=== PATIENT | male | born 1935 | race Caucasian/White ===

== ENCOUNTER → 2018-01-13 | Outpatient (CLI) | payer MEDICARE, OTHER ==
[~2018-01-13] MED LIST: ALBU8.5H IH; ASCO-183 PO; ASPI-1471 PO; CALC600T63 PO; CARV12.578 PO; CARV25TA78 PO; CHLO-172 PO; CHRO1TAB3 PO; CHRO200C6 PO; CINN500C12 PO; CLIN300C99 PO; DOXY-179 PO; ENAL-18 PO; ENAL20TA99 PO; FLU45SYR25 IM ONLY; FURO-45 PO; GLIM2TAB43 PO; HYDR-2966 PO; LUTE6CAP11 PO; MULT-1372 PO; MUPI15CR10 TP; NYST15OI14 TP; OMEG-152 PO; OMEP-125 PO; OXYGENHOME INH; POTA20TA94 PO; SAW450CA3 PO; SIMV-54 PO; TERA2CAP54 PO; TERA5CAP59 PO
[2018-01-13 12:09] LABS: PLATELET COUNT, AUTOMATED 156 K/uL (150-450)
[2018-01-13 12:15] LABS: LDL CHOLESTEROL 24 mg/dl
== END ==
LOC: LAB 11:35
PROVIDERS: ATTEND Internal Medicine
DX: E78.5 Hyperlipidemia, unspecified (principal); E11.9 Type 2 diabetes mellitus without complications; I10 Essential (primary) hypertension
CPT/HCPCS: 36415; 82040; 82247; 82310; 82374; 82435; 82465; 82565; 82947; 83036; 83718; 84075; 84132; 84155; 84295; 84443; 84450; 84460; 84478; 84520; 85025

== ENCOUNTER 2018-06-18 11:14 | Emergency (ER) | payer MEDICARE, OTHER ==
[~2018-06-18 11:14] MED LIST changes: +CEPH-13 PO; +CEPH500T7 PO; -CHRO200C6 PO; +CHRO200C7 PO; +HYDR453.8 TP
[2018-06-18 11:19] VITALS: BP 144/69
--- NOTE | 2018-06-18 11:35 | ER Report ---
History and Physical Time Seen By : 11:26 Hx. of Stated Complaint: PT WAS LEAVING OUTPATIENT REHAB FOR WOUND CARE, AND TRIPPED. PT FELL, LANDED ON HIS RIGHT SHOULDER AND HIT HEAD. PT HAS MULTIPLE OTHER BRUISES FROM PREVIOUS FALLS, AND PT STATES HE IS ON BLOOD THINNERS. HPI/ROS CHIEF COMPLAINT: Mechanical fall HISTORY OF PRESENT ILLNESS: This is an 82-year-old male who presents to the emergency department from the wound care clinic for a fall. Patient was finished with his wound care today and missed a step and fell down on his right side, he has a skin tear to his right elbow, right wrist and dorsum of the left hand. The patient also did hit his head has some swelling to the right temporal parietal area. I suggestion a CT the head and neck as the patient is anticoagulated, the patient declined the head and neck CT, he does understand that he is anticoagulated and could potentially lead to a brain bleed, patient still refusing any imaging just wants the wounds repaired. REVIEW OF SYSTEMS: Respiratory: No cough, no dyspnea. Cardiovascular: No chest pain, no palpitations. Gastrointestinal: No vomiting, no abdominal pain. Musculoskeletal: As above. Integument: As above. Allergies: Coded Allergies: No Known Drug Allergies (Unverified , 10/22/17) Home Meds Active Scripts Simvastatin (SIMVASTATIN) 40 Mg Tablet, 1 MG PO QHS, #90 TAB 3 Refills Prov:ZINA MARINO MD 06/03/18 Terazosin Hcl (TERAZOSIN HCL) 5 Mg Capsule, 5 MG PO QHS, #90 CAPSULE 3 Refills Prov:ZINA MARINO MD 05/08/18 Omeprazole (OMEPRAZOLE) 20 Mg Capsule.dr, 1 CAP PO QDAY, #90 CAP 4 Refills Prov:ZINA MARINO MD 05/04/18 Enalapril Maleate (ENALAPRIL MALEATE) 20 Mg Tablet, 20 MG PO BID, #180 TAB 4 Refills Prov:ZINA MARINO MD 03/24/18 Carvedilol (CARVEDILOL) 25 Mg Tablet, 25 MG PO BID, #180 TAB 4 Refills Prov:ZINA MARINO MD 03/24/18 Furosemide (FUROSEMIDE) 20 Mg Tablet, 1 TAB PO QDAY, #90 TAB 4 Refills Prov:ZINA MARINO MD 03/24/18 Hydrochlorothiazide (HYDROCHLOROTHIAZIDE) 25 Mg Tablet, 1 TAB PO QDAY, #90 TAB 4 Refills Prov:ZINA MARINO MD 03/24/18 Potassium Chloride (POTASSIUM CHLORIDE) 20 Meq Tab.er.prt, 1 TAB PO BID, #180 TAB 4 Refills Prov:ZINA MARINO MD 03/24/18 Hydrocortisone 2.5% Oint (HYDROCORTISONE 2.5% OINT) 453.6 Gm Oint...g., 1 FAUSTINA TP BID for 30 Days, #30 GM 2 Refills Prov:APOLINAR RUSHINGMARIANO Allred NPC 03/05/18 Oxygen (OXYGEN) Inha, 2 L INH QDAY, #2 L Prov:ZINA MARINO MD 09/25/16 Reported Medications Mupirocin (MUPIROCIN) 5 Gm Powder, 5 GM MC 06/18/18 Glimepiride (GLIMEPIRIDE) 2 Mg Tablet, 2 MG PO QDAY 06/18/18 Cinnamon Bark (CINNAMON) 500 Mg Capsule, 2 CAP PO QDAY, CAPSULE 07/25/15 Aspirin (ASPIR 81) 81 Mg Tablet.dr, 1 TAB PO QDAY, TAB 07/25/15 Chromium/Herbal Complex No.238 (Green Tea Caplet) 1 Each Tablet, 300 MG PO QDAY 07/25/15 Multivitamin (DAILY VALUE) 1 Each Tablet, 1 TAB PO QDAY 07/25/15 Lutein (LUTEIN) 6 Mg Capsule, 1 CAP PO QDAY, CAPSULE 07/25/15 [place]-3/Dha/Epa/Fish Oil (FISH OIL OMEGA-3 SOFTGEL) 1 Each Capsule.dr, 1 CAP PO QDAY 07/25/15 Saw [place] Fruit (SAW PALMETTO) 450 Mg Capsule, 1 CAP PO QDAY, CAPSULE 07/25/15 Calcium Carbonate (CALCIUM) 600 Mg Tablet, 2 TAB PO QDAY 07/25/15 Past Medical/Surgical History The patient has a past medical and surgical history of hypertension, hypercholesterolemia, COPD however he does not wear oxygen. Diabetes, a little hernia repair and tonsillectomy. Multiple nonhealing wounds. Multiple falls. Reviewed Nurses Notes: Yes Smoking Status: Former Smoker Hx Substance Use Disorder: No Hx Alcohol Use: Yes Constitutional Vital Sign - Last 24 Hours 06/18/18 11:19 Pulse 76 Resp 18 B/P (MAP) 144/69 Pulse Ox 85 O2 Delivery Room Air Physical Exam General Appearance: The patient is alert, has no immediate need for airway protection and no current signs of toxicity. Eyes: Pupils equal and round no injection. Respiratory: Chest is non tender, lungs are clear to auscultation. Cardiac: regular rate and rhythm. Gastrointestinal: Abdomen is soft and non tender, no masses, bowel sounds normal. Musculoskeletal: Neck: Neck is supple and non tender. Extremities have full range of motion and are non tender. Skin: Small hematoma to the right temporal and parietal area. Skin tear measuring approximate 4 cm to the right lateral elbow. Skin tear to the ulnar side of the wrist proximally 1 cm. Small skin tear to the dorsum of the left hand. Bleeding controlled. DIFFERENTIAL DIAGNOSIS: After history and physical exam differential diagnosis was considered for subdural bleed, skull fracture, elbow fracture, contusion, hematoma, skin tear and wrist fracture. Medical Decision Making ED Course/Re-evaluation ED Course The patient was admitted to room. A strep swab obtained. Differential diagnoses were considered. After my exam I did tell the patient with his history of anticoagulation and the recent head trauma my recommendation was a head and neck CT however the patient declined, he states he understands the risks involved with a potential head bleed. The patient just wanted the wounds repaired as simply as possible and just to go home. I did have the patient follow up with wound care for reevaluation. The wounds were cleansed and repaired as noted below. Patient tolerated well. No other questions or concerns at this time. Patient was wheeled out to the [facility] where his car was parked and assisted into his vehicle. 06/18/2018 11:48:13 am patient again declined the head CT, declined any other imaging of the extremities he also declined suturing and had no shot. I did Steri-Strip the large skin tear on the right elbow measuring approximately 4 cm in length. A nonadherent dressing was applied to the wound. I also applied a Steri-Strip to the skin tear on the ulnar side of the wrist. And a bandage was applied to the small skin tear to the dorsum of the left hand. The wounds were cleaned with normal saline. The patient has been following up with wound care and will follow-up with wound care again. He was instructed to monitor for signs of infection such as redness swelling or drainage. The patient's family arrived in the ER, they wanted the patient evaluated for home health however the patient declined and "just wanted to go home". Decision to Disposition Date: Jun 18, 2018 Decision to Disposition Time: 11:48 Depart Departure Latest Vital Signs Vital Signs Date Time Temp Pulse Resp B/P (MAP) Pulse Ox O2 Delivery O2 Flow Rate FiO2 06/18/18 11:19 76 18 144/69 85 Room Air Impression: Primary Impression: Fall from ground level Additional Impression: Skin tear of elbow without complication Condition: Improved Disposition: HOME OR SELF-CARE Referrals: ZINA MARINO MD (PCP) Patient Instructions: Acute Wound Care (ED), Skin Tear (ED) Additional Instructions: Be sure to monitor for signs of infection such as redness, swelling, heat and drainage if he notices any of these symptoms please return to the ER immediately or follow-up with your primary care provider. Follow-up with wound care as needed. Drink plenty of fluids. Get plenty of rest. Continue with her current medications. Change the dressing as needed. Return to the emergency department for any other concerns or worsening symptoms. Problem Qualifiers Additional Impression: Skin tear of elbow without complication Encounter type: initial encounter Laterality: right Qualified Codes: S51.011A - Laceration without foreign body of right elbow, initial encounter MERE LICONAP-BC Jun 18, 2018 11:35
[2018-06-18] MEDS ORDERED: [UNRECOGNIZED DRUG - CODE] MC (11:44)
[2018-06-18] MEDS ORDERED: GLIM2TAB43 PO (11:44)
== END 2018-06-18 12:10 | disposition home or self-care (01) ==
LOC: ER 11:22
DX: S51.011A Laceration without foreign body of right elbow, initial encounter (principal); W18.30XA Fall on same level, unspecified, initial encounter
CPT/HCPCS: 99282

== ENCOUNTER 2018-06-29 11:09 | Emergency (ER) | payer MEDICARE, OTHER ==
[~2018-06-29 11:09] MED LIST changes: +[UNRECOGNIZED DRUG - CODE] MC
[2018-06-29 11:25] VITALS: BP 171/90
--- NOTE | 2018-06-29 11:34 | ER Report ---
History and Physical Time Seen By MD: 11:34 Hx. of Stated Complaint: WOUND INFECTION ON RIGHT FOOT. HPI/ROS CHIEF COMPLAINT: Wound on right foot HISTORY OF PRESENT ILLNESS: 82-year-old male patient presents to the emergency room with complaint of a wound on the right foot. Patient was seen by wound care today. They noticed that the erythema had gotten larger, the foot seemed a little bit more swollen. They were concerned that the wound was progressing and referred him to the emergency room for further evaluation. Patient states that he this occurred approximately one week ago when he fell going out to his car. He states that they did help him up, he had a dressing on his right foot and dressing on his right elbow. He was then sent home. Patient was not started on any antibiotics. He states that he's not had any fevers or chills. He did come back to follow-up on his wound with wound care. They state that he was having a foul odor and worsening. REVIEW OF SYSTEMS: Respiratory: No cough, no dyspnea. Cardiovascular: No chest pain, no palpitations. Gastrointestinal: No vomiting, no abdominal pain. Musculoskeletal: No back pain. Allergies: Coded Allergies: No Known Drug Allergies (Unverified , 10/22/17) Home Meds Active Scripts Sulfamethoxazole/Trimet 800-160 Mg Tab (BACTRIM DS TABLET) 1 Each Tablet, 1 TAB PO Q12H, #20 TAB Prov:PATSY EVANS [facility] 06/29/18 Cephalexin 500 Mg Tab (KEFLEX 500 MG TAB) 500 Mg Tablet, 500 MG PO Q6H, #28 TAB Prov:PATSY EVANS [facility] 06/29/18 Simvastatin (SIMVASTATIN) 40 Mg Tablet, 1 MG PO QHS, #90 TAB 3 Refills Prov:ZINA GUSTAFSON MD 06/03/18 Terazosin Hcl (TERAZOSIN HCL) 5 Mg Capsule, 5 MG PO QHS, #90 CAPSULE 3 Refills Prov:ZINA GUSTAFSON MD 05/08/18 Omeprazole (OMEPRAZOLE) 20 Mg Capsule.dr, 1 CAP PO QDAY, #90 CAP 4 Refills Prov:ZINA GUSTAFSON MD 05/04/18 Enalapril Maleate (ENALAPRIL MALEATE) 20 Mg Tablet, 20 MG PO BID, #180 TAB 4 Refills Prov:ZINA GUSTAFSON MD 03/24/18 Carvedilol (CARVEDILOL) 25 Mg Tablet, 25 MG PO BID, #180 TAB 4 Refills Prov:ZINA GUSTAFSON MD 03/24/18 Furosemide (FUROSEMIDE) 20 Mg Tablet, 1 TAB PO QDAY, #90 TAB 4 Refills Prov:ZINA GUSTAFSON MD 03/24/18 Hydrochlorothiazide (HYDROCHLOROTHIAZIDE) 25 Mg Tablet, 1 TAB PO QDAY, #90 TAB 4 Refills Prov:ZINA GUSTAFSON MD 03/24/18 Potassium Chloride (POTASSIUM CHLORIDE) 20 Meq Tab.er.prt, 1 TAB PO BID, #180 TAB 4 Refills Prov:ZINA GUSTAFSON MD 03/24/18 Hydrocortisone 2.5% Oint (HYDROCORTISONE 2.5% OINT) 453.6 Gm Oint...g., 1 FAUSTINA TP BID for 30 Days, #30 GM 2 Refills Prov:GUSTAVO RUSHING 03/05/18 Oxygen (OXYGEN) Inha, 2 L INH QDAY, #2 L Prov:ZINA GUSTAFSON MD 09/25/16 Reported Medications Mupirocin (MUPIROCIN) 5 Gm Powder, 5 GM MC 06/18/18 Glimepiride (GLIMEPIRIDE) 2 Mg Tablet, 2 MG PO QDAY 06/18/18 Cinnamon Bark (CINNAMON) 500 Mg Capsule, 2 CAP PO QDAY, CAPSULE 07/25/15 Aspirin (ASPIR 81) 81 Mg Tablet.dr, 1 TAB PO QDAY, TAB 07/25/15 Chromium/Herbal Complex No.238 (Green Tea Caplet) 1 Each Tablet, 300 MG PO QDAY 07/25/15 Multivitamin (DAILY VALUE) 1 Each Tablet, 1 TAB PO QDAY 07/25/15 Lutein (LUTEIN) 6 Mg Capsule, 1 CAP PO QDAY, CAPSULE 07/25/15 [place]-3/Dha/Epa/Fish Oil (FISH OIL OMEGA-3 SOFTGEL) 1 Each Capsule.dr, 1 CAP PO QDAY 07/25/15 Saw [place] Fruit (SAW PALMETTO) 450 Mg Capsule, 1 CAP PO QDAY, CAPSULE 07/25/15 Calcium Carbonate (CALCIUM) 600 Mg Tablet, 2 TAB PO QDAY 9/8/15 Past Medical/Surgical History Patient has a past medical history of COPD, hyperlipidemia, diabetes, alcohol use. Patient has a surgical history of inguinal hernia repair, tonsillectomy. Reviewed Nurses Notes: Yes Smoking Status: Former Smoker Hx Substance Use Disorder: No Hx Alcohol Use: Yes Constitutional Vital Sign - Last 24 Hours 06/29/18 11:25 Temp 97.7 Pulse 81 Resp 18 B/P (MAP) 171/90 Pulse Ox 94 O2 Delivery Room Air Intake and Output 06/29/18 06/29/18 06/30/18 14:59 22:59 06:59 Intake Total 500 ml Balance 500 ml Physical Exam General Appearance: The patient is alert, has no immediate need for airway protection and no current signs of toxicity. ENT: Tympanic membranes are pearly-estevez, auditory canals are patent, mucous membranes are moist. Respiratory: Chest is non tender, lungs are clear to auscultation. Cardiac: regular rate and rhythm Gastrointestinal: Abdomen is soft and non tender, no masses, bowel sounds normal. Musculoskeletal: Neck: Neck is supple and non tender. Extremities have full range of motion and are non tender. Skin: No rashes or lesions. Patient has a nickel-sized wound on the right foot. There is no obvious drainage. He is erythematous around the. He did have markings which the redness has surpassed. It is slightly warm to the touch. DIFFERENTIAL DIAGNOSIS: After history and physical exam differential diagnosis was considered for osteomyelitis, cellulitis, abscess. Medical Decision Making Data Points Result Diagram: 06/29/18 1210 06/29/18 1210 Laboratory Hematology Test 06/29/18 12:10 Red Blood Count 3.92 M/uL (4.00-5.60) Mean Corpuscular Volume 93.3 fL (80.0-96.0) Mean Corpuscular Hemoglobin 33.9 pg (26.0-33.0) Mean Corpuscular Hemoglobin Concent 36.4 g/dL (32.0-36.0) Red Cell Distribution Width 13.1 % (11.5-14.5) Mean Platelet Volume 7.4 fL (7.2-11.1) Neutrophils (%) (Auto) 66.7 % (39.4-72.5) Lymphocytes (%) (Auto) 18.4 % (17.6-49.6) Monocytes (%) (Auto) 10.4 % (4.1-12.4) Eosinophils (%) (Auto) 3.3 % (0.4-6.7) Basophils (%) (Auto) 1.2 % (0.3-1.4) Nucleated RBC Relative Count (auto) 0.2 /100WBC Neutrophils # (Auto) 3.5 K/uL (2.0-7.4) Lymphocytes # (Auto) 1.0 K/uL (1.3-3.6) Monocytes # (Auto) 0.5 K/uL (0.3-1.0) Eosinophils # (Auto) 0.2 K/uL (0.0-0.5) Basophils # (Auto) 0.1 K/uL (0.0-0.1) Nucleated RBC Absolute Count (auto) 0.01 K/uL Sodium Level 138 mmol/L (137-145) Potassium Level 3.9 mmol/L (3.5-5.0) Chloride Level 105 mmol/L (98-107) Carbon Dioxide Level 22 mmol/L (22-30) Blood Urea Nitrogen 9 mg/dl (9-21) Creatinine 1.00 mg/dl (0.66-1.25) Glomerular Filtration Rate Calc > 60.0 Random Glucose 92 mg/dl (75-110) Lactate 1.0 mmol/L (0.7-2.1) Calcium Level 9.1 mg/dl (8.4-10.2) Total Bilirubin 0.2 mg/dl (0.2-1.3) Aspartate Amino Transf (AST/SGOT) 27 U/L (0-35) Alanine Aminotransferase (ALT/SGPT) 33 U/L (0-56) Alkaline Phosphatase 40 U/L (0-126) C-Reactive Protein 0.6 mg/dl (<1.0) Total Protein 6.9 g/dl (6.3-8.2) Albumin 4.1 g/dl (3.5-5.0) Chemistry Test 06/29/18 12:10 White Blood Count 5.2 k/uL (4.5-11.0) Red Blood Count 3.92 M/uL (4.00-5.60) Hemoglobin 13.3 g/dL (14.0-18.0) Hematocrit 36.5 % (42.0-52.0) Mean Corpuscular Volume 93.3 fL (80.0-96.0) Mean Corpuscular Hemoglobin 33.9 pg (26.0-33.0) Mean Corpuscular Hemoglobin Concent 36.4 g/dL (32.0-36.0) Red Cell Distribution Width 13.1 % (11.5-14.5) Platelet Count 185 K/uL (150-450) Mean Platelet Volume 7.4 fL (7.2-11.1) Neutrophils (%) (Auto) 66.7 % (39.4-72.5) Lymphocytes (%) (Auto) 18.4 % (17.6-49.6) Monocytes (%) (Auto) 10.4 % (4.1-12.4) Eosinophils (%) (Auto) 3.3 % (0.4-6.7) Basophils (%) (Auto) 1.2 % (0.3-1.4) Nucleated RBC Relative Count (auto) 0.2 /100WBC Neutrophils # (Auto) 3.5 K/uL (2.0-7.4) Lymphocytes # (Auto) 1.0 K/uL (1.3-3.6) Monocytes # (Auto) 0.5 K/uL (0.3-1.0) Eosinophils # (Auto) 0.2 K/uL (0.0-0.5) Basophils # (Auto) 0.1 K/uL (0.0-0.1) Nucleated RBC Absolute Count (auto) 0.01 K/uL Glomerular Filtration Rate Calc > 60.0 Lactate 1.0 mmol/L (0.7-2.1) Calcium Level 9.1 mg/dl (8.4-10.2) Total Bilirubin 0.2 mg/dl (0.2-1.3) Aspartate Amino Transf (AST/SGOT) 27 U/L (0-35) Alanine Aminotransferase (ALT/SGPT) 33 U/L (0-56) Alkaline Phosphatase 40 U/L (0-126) C-Reactive Protein 0.6 mg/dl (<1.0) Total Protein 6.9 g/dl (6.3-8.2) Albumin 4.1 g/dl (3.5-5.0) Microbiology Microbiology Date/Time Source Procedure Growth Status 06/29/18 11:48 Foot Right Gram Stain - Final Resulted 06/29/18 11:48 Foot Right Wound Culture Pending Resulted 06/29/18 11:48 Foot Right Anaerobic Culture Pending Resulted EKG/Imaging Imaging FOOT RIGHT W CONTRAST COMPARISON: None. HISTORY: wound on top of foot, diabetic. TECHNIQUE: Postcontrast axial CT of the right ankle, midfoot and forefoot with multiplanar reformats. One of the following dose optimization techniques was utilized in the performance of this exam: automated exposure control; adjustment of the mA and/ or kV according to patient size; or use of iterative reconstruction technique. Specific details can be referenced in the facility's radiology CT exam operational policy. CONTRAST: 75 mL Isovue-370 intravenously. FINDINGS: BONES : No acute fracture or CT evidence of osteomyelitis. Moderate first MTP joint osteoarthritis with joint space narrowing and marginal spurring present. Mild mid foot osteoarthritis, with degenerative cysts within the medial cuneiform and navicular and with dorsal spurring at the first and second TMT joints. There are second through fifth toe hammertoe deformities, otherwise alignment is within normal limits for nonweightbearing technique. Small plantar and posterior calcaneal enthesophytes are present. There is mild tibiotalar joint space narrowing and spurring and moderate spurring at the tip of the medial malleolus. FLUID: No appreciable effusion or drainable fluid collection. SOFT TISSUES: Moderate diffuse vascular calcifications consistent with peripheral vascular disease. Diffuse muscle atrophy is probably due to long- standing diabetic neuropathy. There is diffuse skin thickening and mild circumferential soft tissue edema at the ankle, and moderate soft tissue edema throughout the dorsal midfoot and forefoot, but no soft tissue abscess is seen. OTHER: Negative. IMPRESSION: 1. Soft tissue edema in the right ankle and dorsal midfoot/forefoot, probably representing cellulitis. No evidence of soft tissue abscess or osteomyelitis. 2. 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 3. Diffuse foot muscle atrophy which is probably due to long-standing diabetic neuropathy. 4. Moderate vascular calcifications consistent with peripheral vascular disease. Report Dictated By: Shlomo Hinton at 06/29/2018 2:23 PM Report E-Signed By: Shlomo Hinton at 06/29/2018 2:30 PM ED Course/Re-evaluation ED Course Patient was admitted to an exam room, history and physical were obtained. Differential diagnoses were considered. On examination lungs are clear, heart is regular, abdomen is soft and nontender. Patient does have a wound to the top of the right foot. A CBC, CMP, lactate were done. Labs were unremarkable. A CT scan of the foot was done which showed soft tissue swelling consistent with cellulitis but no abscess and no ostium myelitis. I discussed the findings with the patient. We will go ahead and discharge patient home at this time. The dressing was replaced by myself under the direction of Yamel Carl, physical therapist. Patient states he's feeling fine. We will go ahead and put him on Keflex as well as Bactrim to treat the cellulitis. He is to return emergency room if condition worsens. I would like him follow-up with his primary care provider if condition worsens. Patient verbalized understanding and agreement with plan. Decision to Disposition Date: Jun 29, 2018 Decision to Disposition Time: 14:48 Depart Departure Latest Vital Signs Vital Signs Date Time Temp Pulse Resp B/P (MAP) Pulse Ox O2 Delivery O2 Flow Rate FiO2 06/29/18 11:25 97.7 81 18 171/90 94 Room Air Impression: Primary Impression: Cellulitis Condition: Improved Disposition: HOME OR SELF-CARE Referrals: ZINA GUSTAFSON MD (PCP) New Scripts Sulfamethoxazole/Trimet 800-160 Mg Tab (BACTRIM DS TABLET) 1 Each Tablet 1 TAB PO Q12H, #20 TAB Prov: PATSY EVANS 06/29/18 Cephalexin 500 Mg Tab (KEFLEX 500 MG TAB) 500 Mg Tablet 500 MG PO Q6H, #28 TAB Prov: PATSY EVANS 06/29/18 Patient Instructions: Cellulitis (ED) Additional Instructions: Limit activity by pain. Get plenty of rest. Take the antibiotics as directed. Follow up with Yamel on as directed. Return to the ER if condition worsens. Follow up with Dr. Gustafson in the next week. Problem Qualifiers Primary Impression: Cellulitis Site of cellulitis: extremity Site of cellulitis of extremity: lower extremity Laterality: right Qualified Codes: L03.115 - Cellulitis of right lower limb PATSY EVANS Jun 29, 2018 11:34
[2018-06-29] MEDS ORDERED: NS(*) 0.9% 500 ML BAG 500 ML IV ONE (11:55)
[2018-06-29] MEDS ORDERED: IOPAMIDOL 76% 75 ML INFUS BTL 75 ML ONE (12:05)
[2018-06-29 12:23] LABS: PLATELET COUNT, AUTOMATED 185 K/uL (150-450)
--- NOTE | 2018-06-29 14:36 | RADIOLOGY IMAGING REPORT ---
FACILITY: [facility] - [place] PATIENT NAME: Valerio Hays : 1935 MR: [id number] V: [id number] EXAM DATE: ORDERING PHYSICIAN: PTASY EVANS TECHNOLOGIST: Location: [facility] [place] Patient: Valerio Hays : 1935 Visit/Account:[id number] Date of Sevice: 06/29/2018 FOOT RIGHT W CONTRAST COMPARISON: None. HISTORY: wound on top of foot, diabetic. TECHNIQUE: Postcontrast axial CT of the right ankle, midfoot and forefoot with multiplanar reformats. One of the following dose optimization techniques was utilized in the performance of this exam: auto mated exposure control; adjustment of the mA and/or kV according to patient size; or use of iterative reconstruction technique. Specific details can be referenced in the facility's radiology CT exam op erational policy. CONTRAST: 75 mL Isovue-370 intravenously. FINDINGS: BONES : No acute fracture or CT evidence of osteomyelitis. Moderate first MTP joint osteoarthritis w ith joint space narrowing and marginal spurring present. Mild mid foot osteoarthritis, with degenerat jena cysts within the medial cuneiform and navicular and with dorsal spurring at the first and second TMT joints. There are second through fifth toe hammertoe deformities, otherwise alignment is within n ormal limits for nonweightbearing technique. Small plantar and posterior calcaneal enthesophytes are present. There is mild tibiotalar joint space narrowing and spurring and moderate spurring at the tip of the medial malleolus. FLUID: No appreciable effusion or drainable fluid collection. SOFT TISSUES: Moderate diffuse vascular calcifications consistent with peripheral vascular disease. Diffuse muscle atrophy is probably due to long-standing diabetic neuropathy. There is diffuse skin th ickening and mild circumferential soft tissue edema at the ankle, and moderate soft tissue edema thro ughout the dorsal midfoot and forefoot, but no soft tissue abscess is seen. OTHER: Negative. IMPRESSION: 1. Soft tissue edema in the right ankle and dorsal midfoot/forefoot, probably representing celluliti s. No evidence of soft tissue abscess or osteomyelitis. 2. 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 3. Diffuse foot muscle atrophy which is probably due to long-standing diabetic neuropathy. 4. Moderate vascular calcifications consistent with peripheral vascular disease. Report Dictated By: Shlomo Hinton at 06/29/2018 2:23 PM Report E-Signed By: Shlomo Hinton at 06/29/2018 2:30 PM WSN:[email or web address]
[2018-06-29] MEDS ORDERED: SULF-198 PO (14:46)
[2018-06-29] MEDS ORDERED: CEPH500T7 PO (14:46)
== END 2018-06-29 15:00 | disposition home or self-care (01) ==
LOC: ER 11:26
DX: L03.115 Cellulitis of right lower limb (principal)
CPT/HCPCS: 73701; 83605; 85025; 86140; 87070; 87073; 87205; 96360; 99284; J7040; Q9967; 82040; 82247; 82310; 82374; 82435; 82565; 82947; 84075; 84132; 84155; 84295; 84450; 84460; 84520

== ENCOUNTER 2018-07-09 10:30 | Outpatient (RCR) | payer MEDICARE, OTHER ==
--- NOTE | 2018-04-17 20:53 | PT INITIAL EVALUATION ---
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 Most recently, pt had been applying bactroban and or a topical steriod, both without significant improvement. Pt also has had 2 rounds of Keflex which has not provided relief of symptoms either. Pt arrives with wound open to air covered simply with boxers and jeans. REHAB PROBLEM LIST: Increased Pain; open wounds to B) medial buttocks PREVIOUS MEDICAL HISTORY: DMII OBJECTIVE: L) superior medial buttocks: 2cm L x 1cm W x 0.3cm D L) inferior medial buttocks: 1.5cm L x 1cm W x 0.3cm D R) medial buttocks: 3cm L x 2 cm W x 0.3cm D Large area of red, excoriated skin with abrasions surrounding each open area. ASSESSMENT: Pt notes that he sleeps in a recliner and typically keeps his feet in a dependent position, as this is most comfortable for him. Pt educated on the importance of changing position more frequently and cushions to off load this area and allow for more breathability. Pt also educated on importance of moisture control and potentially using a disposable brief to manage moisture and allow for more efficient healing. Pt would benefit from non-excisional debridement of non-viable tissue and slough at wound beds and debridement to address edges of wounds with epibole, followed by advanced wound care dressing selection to optimize a clean, moist wound healing environment without contamination. Short Term Goals 1. Pt to maintain clean, dry and intact dressings between PT visits 2. Wounds to demos improved granulation base with gradual epithelialization from edges inward 3. Wounds to remain free of signs and symptoms of infection 4. Periwound skin to respond to moisturizer and skin protectant. 5. Pt to verbalize understanding of pressure and moisture control techniques and actively integrate them into daily living. Patient's Goals Wounds to heal without further complications and prevent further occurrence in the future. PLAN: Patient to be seen for non-excisional, selective, conservative debridement to remove non-viable tissue and slough and encourage further wound healing by establishing a clean, moist wound bed with protection from contamination or excessive moisture. Pt to be educated on further preventative techniques to allow for off loading with frequent position changes and moisture management with regard to sweating or any potential incontinence. 2x/Week for up to 3 months Thank you for this referral. If you have any questions, comments, or concerns about this report or plan, please contact me at . H. Yazmin Carl, PT, MPT MTDD
[~2018-07-09 10:30] MED LIST changes: +SULF-198 PO
== END 2018-07-15 ==
LOC: PT 10:30
PROVIDERS: ATTEND Nurse Practitioner
DX: L89.323 Pressure ulcer of left buttock, stage 3 (principal); L89.313 Pressure ulcer of right buttock, stage 3; E11.9 Type 2 diabetes mellitus without complications
CPT/HCPCS: 97161

== ENCOUNTER → 2018-09-07 | Outpatient (CLI) | payer MEDICARE, OTHER ==
[~2018-09-07] MED LIST changes: +AMOX-559 PO
[2018-09-07 09:27] LABS: PLATELET COUNT, AUTOMATED 254 K/uL (150-450)
[2018-09-07 09:36] LABS: LDL CHOLESTEROL 43 mg/dl
--- NOTE | 2018-09-07 09:51 | RADIOLOGY IMAGING REPORT ---
FACILITY: [facility] - [place] PATIENT NAME: Valerio Hays : 1935 MR: [id number] V: [id number] EXAM DATE: ORDERING PHYSICIAN: ZINA MARINO TECHNOLOGIST: [place] [facility] [place] Valerio Hays : 1935 Visit/Account:[id number] Date of Sevice: 09/07/2018 TOE LEFT FOOT SECOND DIGIT HISTORY: cellulitis Additional history: None COMPARISON: None. FINDINGS: Osseous structures appear intact. No radiographic evidence of osteomyelitis. Minimal arthritic bliss ges noted at the first MTP joint. There is soft tissue swelling in the second digit compatible with reported history of cellulitis. No foreign bodies identified. No evidence of gas in the soft tissue s. IMPRESSION: Second toe soft tissue swelling. No radiographic evidence of osteomyelitis. I would caution however the radiographic findings occur relatively late. If there is strong clinical suspicion for osteomye litis MRI is the most sensitive modality for detection Report Dictated By: Chinmay Mosley MD at 09/07/2018 9:42 AM Report E-Signed By: Chinmay Mosley MD at 09/07/2018 9:47 AM WSN:[email or web address]
== END ==
LOC: LAB 08:49
PROVIDERS: ATTEND Internal Medicine
DX: L03.032 Cellulitis of left toe (principal); E11.9 Type 2 diabetes mellitus without complications; E78.5 Hyperlipidemia, unspecified; I10 Essential (primary) hypertension
CPT/HCPCS: 36415; 73660; 83036; 84443; 84550; 85025; 85651; 86140; 87070; 87073; G0103; 82040; 82247; 82310; 82374; 82435; 82465; 82565; 82947; 83718; 84075; 84132; 84153; 84155; 84295; 84450; 84460; 84478; 84520

== ENCOUNTER → 2018-09-17 | Outpatient (CLI) | payer MEDICARE, OTHER ==
[~2018-09-17] MED LIST changes: +GADOBENATE 529MG/1ML 15ML VIAL IVP ONE; +LEVO750T44 PO
--- NOTE | 2018-09-17 17:13 | RADIOLOGY IMAGING REPORT ---
FACILITY: [facility] - [place] PATIENT NAME: Valerio Hays : 1935 MR: [id number] V: [id number] EXAM DATE: ORDERING PHYSICIAN: ZINA MARINO TECHNOLOGIST: Location: [facility] Patient: Valerio Hays : 1935 Visit/Account:[id number] Date of Sevice: 09/17/2018 MRI LEFT FOOT W W/O CONTRAST COMPARISON: Left foot radiographs September 07, 2018. HISTORY: diabetic ulcer r/o osteomylitis left 2nd toe. TECHNIQUE: Pre and postcontrast multiplanar MRI of the forefoot and visualized midfoot utilizing T1 w eighted and fluid sensitive sequences. CONTRAST: 15 mL gadobenate was given intravenously FINDINGS: First through fifth toe hammertoe deformities. Fifth toe hammertoe deformity is suboptimally assessed because the sagittal images only traverse the first through fourth MTP joints. Mild medial and later al marginal spurring at the first MTP joint consistent with mild osteoarthritis. There is moderate consuelo ne marrow edema throughout the second toe proximal phalanx, with associated dorsal cortical loss at t he head/neck junction consistent with osteomyelitis. Normal marrow signal in the middle and distal ph alanx of the second toe. Elsewhere no additional sites of osteomyelitis or bone marrow edema are seen . There is normal alignment of the hallux/sesamoid complex, without sesamoid avascular necrosis, fractu re or sesamoiditis. The plantar plates, flexor and extensor tendons are intact. There is no intermetatarsal bursitis or evidence of Crump's neuroma. There is diffuse enhancing soft tissue edema overlying the dorsal forefoot and in the second toe, con sistent with cellulitis, without evidence of a soft tissue abscess. IMPRESSION: 1. Findings consistent with osteomyelitis of the dorsal head/neck junction of the second toe proxima l phalanx, left foot. 2. Enhancing soft tissue edema in the dorsal forefoot and throughout the second toe, consistent with cellulitis. No evidence of soft tissue abscess. Report Dictated By: Shlomo Hinton at 09/17/2018 4:59 PM Report E-Signed By: Shlomo Hinton at 09/17/2018 5:09 PM WSN:[email or web address]
--- NOTE | 2018-09-17 17:21 | RADIOLOGY IMAGING REPORT ---
FACILITY: [facility] - [place] PATIENT NAME: Valerio Hays : 1935 MR: [id number] V: [id number] EXAM DATE: ORDERING PHYSICIAN: ZINA MARINO TECHNOLOGIST: Location: [facility] Patient: Valerio Hays : 1935 Visit/Account:[id number] Date of Sevice: 09/17/2018 MRI RIGHT FOOT W W/O CONTRAST COMPARISON: Right foot CT 06/29/2018. HISTORY: diabetic ulcer r/o osteomyelitis. Right foot ulcer on top of the foot marked with capsule. TECHNIQUE: Multiplanar MRI of the right midfoot and metatarsals utilizing T1 weighted and fluid sensi tive sequences, with and without IV gadolinium. CONTRAST: 15 Citizen [place] MultiHance intravenously. FINDINGS: BONES : Mild medial and lateral marginal spurring, first MTP joint consistent with mild osteoarthrit is. Mild degenerative changes at the navicular cuboid articulation with mild subchondral edema in the proximal cuboid and prominent degenerative subchondral cyst with surrounding edema in the navicular. Otherwise normal marrow signal and alignment with no evidence of osteomyelitis. FLUID: No appreciable effusion or drainable fluid collection. There is no evidence of soft tissue ab scess. SOFT TISSUES: Mildly enhancing confluent soft tissue edema, dorsal forefoot. Diffuse muscle atrophy. OTHER: Negative. IMPRESSION: 1. Dorsal right forefoot soft tissue edema probably representing cellulitis. No evidence of osteomye litis or soft tissue abscess. 2. Mild degenerative changes of the first MTP joint and navicular cuboid articulation. 3. Diffuse muscle atrophy. Report Dictated By: Shlomo Hinton at 09/17/2018 5:09 PM Report E-Signed By: Shlomo Hinton at 09/17/2018 5:17 PM WSN:[email or web address]
== END ==
LOC: MRI 13:49
PROVIDERS: ATTEND Internal Medicine
DX: L03.90 Cellulitis, unspecified (principal); E11.621 Type 2 diabetes mellitus with foot ulcer
CPT/HCPCS: 73720; A9577

== ENCOUNTER 2018-09-20 09:44 | Emergency (ER) | payer MEDICARE, OTHER ==
[~2018-09-20 09:44] MED LIST changes: -SULF1TAB24 PO
--- NOTE | 2018-09-20 09:45 | ER Report ---
History and Physical Time Seen By : 09:45 HPI/ROS CHIEF COMPLAINT: Weakness, confusion HISTORY OF PRESENT ILLNESS: Patient is an 82-year-old male here with complaints of mild confusion, weakness over the past 2 days. Patient reportedly has been drinking beer to go to sleep and over imbibing while at the same time, drinking enough fluids. He is reported to have difficulty starting his car this morning prompting concern of evaluation in the emergency department. He was noted be tachycardic at time of evaluation. He is also on antibiotic treatment for left distal extremity infection. Patient is afebrile, tachycardic at time of evaluation. Patient denies chest pain, shortness breath, fevers chills, abdominal pain, syncopal episodes. REVIEW OF SYSTEMS: Constitutional: No fever, no chills. Eyes: No discharge. ENT: No sore throat. Cardiovascular: No chest pain, no palpitations. Respiratory: No cough, no shortness of breath. Gastrointestinal: No abdominal pain, no vomiting. Genitourinary: No hematuria. Musculoskeletal: No back pain. Skin: No rashes. Neurological: + confusion, weakness Allergies: Coded Allergies: No Known Drug Allergies (Unverified , 10/22/17) Home Meds Active Scripts Levofloxacin 750 Mg Tab (LEVAQUIN 750 MG TAB) 750 Mg Tablet, 1 TAB PO DAILY, #7 TAB 0 Refills Prov:ZINA MARINO MD 09/18/18 Simvastatin (SIMVASTATIN) 40 Mg Tablet, 1 MG PO QHS, #90 TAB 3 Refills Prov:ZINA MARINO MD 06/03/18 Terazosin Hcl (TERAZOSIN HCL) 5 Mg Capsule, 5 MG PO QHS, #90 CAPSULE 3 Refills Prov:ZINA MARINO MD 05/08/18 Omeprazole (OMEPRAZOLE) 20 Mg Capsule.dr, 1 CAP PO QDAY, #90 CAP 4 Refills Prov:ZINA MARINO MD 05/04/18 Enalapril Maleate (ENALAPRIL MALEATE) 20 Mg Tablet, 20 MG PO BID, #180 TAB 4 Refills Prov:ZINA MARINO MD 03/24/18 Carvedilol (CARVEDILOL) 25 Mg Tablet, 25 MG PO BID, #180 TAB 4 Refills Prov:ZINA MARINO MD 03/24/18 Furosemide (FUROSEMIDE) 20 Mg Tablet, 1 TAB PO QDAY, #90 TAB 4 Refills Prov:ZINA MARINO MD 03/24/18 Hydrochlorothiazide (HYDROCHLOROTHIAZIDE) 25 Mg Tablet, 1 TAB PO QDAY, #90 TAB 4 Refills Prov:ZINA MARINO MD 03/24/18 Potassium Chloride (POTASSIUM CHLORIDE) 20 Meq Tab.er.prt, 1 TAB PO BID, #180 TAB 4 Refills Prov:ZINA MARINO MD 03/24/18 Oxygen (OXYGEN) Inha, 2 L INH QDAY, #2 L Prov:ZINA MARINO MD 09/25/16 Reported Medications Amoxicillin/Pot Clav 875-125 Mg Tab (AUGMENTIN 875-125 TABLET) 1 Each Tablet, 1 TAB PO Q12H, TAB 09/20/18 Sulfamethoxazole/Trimethoprim (SULFAMETHOXAZOLE-TMP DS TABLET) 1 Each Tablet, 1 TAB PO Q12H 09/20/18 Mupirocin (MUPIROCIN) 5 Gm Powder, 5 GM MC 06/18/18 Glimepiride (GLIMEPIRIDE) 2 Mg Tablet, 2 MG PO QDAY 06/18/18 Aspirin (ASPIR 81) 81 Mg Tablet.dr, 1 TAB PO QDAY, TAB 07/25/15 Multivitamin (DAILY VALUE) 1 Each Tablet, 1 TAB PO QDAY 07/25/15 Lutein (LUTEIN) 6 Mg Capsule, 1 CAP PO QDAY, CAPSULE 07/25/15 Saw [place] Fruit (SAW PALMETTO) 450 Mg Capsule, 1 CAP PO QDAY, CAPSULE 07/25/15 Calcium Carbonate (CALCIUM) 600 Mg Tablet, 2 TAB PO QDAY 07/25/15 Discontinued Scripts Sulfamethoxazole/Trimet 800-160 Mg Tab (BACTRIM DS TABLET) 1 Each Tablet, 1 TAB PO Q12H, #28 TAB Prov:ZINA MARINO MD 09/07/18 Amoxicillin/Pot Clav 875-125 Mg Tab (AUGMENTIN 875-125 TABLET) 1 Each Tablet, 1 TAB PO Q12H, #28 TAB Prov:ZINA MARINO MD 09/07/18 Sulfamethoxazole/Trimet 800-160 Mg Tab (BACTRIM DS TABLET) 1 Each Tablet, 1 TAB PO Q12H, #20 TAB Prov:PATSY EVANS PRIMARY CARE COORDINATOR 06/29/18 Smoking Status: Former Smoker Hx Substance Use Disorder: No Hx Alcohol Use: Yes Constitutional Vital Sign - Last 24 Hours 09/20/18 09/20/18 09/20/18 09/20/18 09:46 09:49 09:59 10:00 Temp 98.7 Pulse 120 116 Resp 18 14 B/P (MAP) 110/63 (79) 110/63 115/61 (79) Pulse Ox 94 96 O2 Delivery Room Air 09/20/18 09/20/18 09/20/18 09/20/18 10:14 10:44 10:45 10:50 Pulse 109 111 111 Resp 29 18 B/P (MAP) 133/74 (93) Pulse Ox 94 95 09/20/18 09/20/18 09/20/18 09/20/18 11:00 11:05 11:20 11:30 Pulse 113 110 Resp 16 33 B/P (MAP) 109/66 (80) 121/63 (82) Pulse Ox 94 09/20/18 09/20/18 09/20/18 09/20/18 11:35 11:50 12:00 12:05 Pulse 90 105 94 Resp 20 18 17 B/P (MAP) 113/64 (80) Pulse Ox 94 92 94 09/20/18 09/20/18 09/20/18 09/20/18 12:20 12:30 12:35 12:40 Pulse 101 92 96 Resp 20 15 15 B/P (MAP) 121/69 (86) Pulse Ox 95 92 91 09/20/18 09/20/18 09/20/18 09/20/18 12:55 13:00 13:10 13:20 Pulse 106 99 Resp 17 17 B/P (MAP) 124/52 (76) 121/64 (83) Pulse Ox 96 91 Physical Exam General Appearance: The patient is alert, has no immediate need for airway protection and no signs of toxicity. NAD Eyes: Pupils equal and round no pallor or injection. ENT, Mouth: Mucous membranes are moist. Respiratory: There are no retractions, lungs are clear to auscultation. Cardiovascular: + tachycardic Gastrointestinal: Abdomen is soft and non tender, no masses, bowel sounds normal. Neurological: No focal neuro deficits Skin: Warm and dry, no rashes. Musculoskeletal: Neck is supple non tender. + left distal extremity infection DIFFERENTIAL DIAGNOSIS: After history and physical exam differential diagnosis was considered for dehydration, electrolyte abnormality, intoxication, stroke, infection Medical Decision Making Data Points Result Diagram: 09/20/1848 09/20/18 0948 Laboratory Hematology Test 09/20/18 09:48 09/20/18 09:54 09/20/18 10:06 09/20/18 11:17 Red Blood Count 4.55 M/uL (4.00-5.60) Mean Corpuscular Volume 93.0 fL (80.0-96.0) Mean Corpuscular Hemoglobin 32.4 pg (26.0-33.0) Mean Corpuscular Hemoglobin Concent 34.8 g/dL (32.0-36.0) Red Cell Distribution Width 13.1 % (11.5-14.5) Mean Platelet Volume 7.6 fL (7.2-11.1) Neutrophils (%) (Auto) 78.0 % (39.4-72.5) Lymphocytes (%) (Auto) 12.2 % (17.6-49.6) Monocytes (%) (Auto) 8.9 % (4.1-12.4) Eosinophils (%) (Auto) 0.3 % (0.4-6.7) Basophils (%) (Auto) 0.6 % (0.3-1.4) Nucleated RBC Relative Count (auto) 0.0 /100WBC Neutrophils # (Auto) 7.6 K/uL (2.0-7.4) Lymphocytes # (Auto) 1.2 K/uL (1.3-3.6) Monocytes # (Auto) 0.9 K/uL (0.3-1.0) Eosinophils # (Auto) 0.0 K/uL (0.0-0.5) Basophils # (Auto) 0.1 K/uL (0.0-0.1) Nucleated RBC Absolute Count (auto) 0.00 K/uL Prothrombin Time 15.0 seconds (12.0-14.4) Prothromb Time International Ratio 1.17 Activated Partial Thromboplast Time 31 seconds (23-35) Sodium Level 134 mmol/L (137-145) Potassium Level 4.2 mmol/L (3.5-5.0) Chloride Level 100 mmol/L (98-107) Carbon Dioxide Level 24 mmol/L (22-30) Blood Urea Nitrogen 31 mg/dl (9-21) Creatinine 1.30 mg/dl (0.66-1.25) Glomerular Filtration Rate Calc 52.7 Random Glucose 116 mg/dl (75-110) Calcium Level 8.8 mg/dl (8.4-10.2) Total Bilirubin 0.7 mg/dl (0.2-1.3) Aspartate Amino Transf (AST/SGOT) 32 U/L (0-35) Alanine Aminotransferase (ALT/SGPT) 29 U/L (0-56) Alkaline Phosphatase 51 U/L (0-126) Ammonia 12 UMOL/L (9-33) Troponin I < 0.012 ng/ml Total Protein 7.1 g/dl (6.3-8.2) Albumin 3.6 g/dl (3.5-5.0) Serum Alcohol < 10 mg/dl Whole Blood Glucose 136 mg/DL (75-110) Blood Gas Puncture Site Left radial Blood Gas Patient Temperature 98.7 DEGREES Arterial Blood pH 7.45 (7.35-7.45) Arterial Blood Partial Pressure CO2 28 mmHg (32-37) Arterial Blood Partial Pressure O2 62 mmHg (60-80) Arterial Blood HCO3 20 mmol/L (20-26) Arterial Blood Oxygen Saturation 93 % (92-100) Arterial Blood Base Excess -4.0 mmol/L Philippe Test Acceptable Carboxyhemoglobin 2.1 % (< 5.0) Oxygen Liters/Minute Room air Urine Color Yellow Urine Clarity Clear Urine pH 5.0 pH (4.8-9.5) Urine Specific [place] 1.012 Urine Protein Negative mg/dL (NEGATIVE) Urine Glucose (UA) Negative mg/dL (NEGATIVE) Urine Ketones Negative mg/dL (NEGATIVE) Urine Blood Negative (NEGATIVE) Urine Nitrite Negative (NEGATIVE) Urine Bilirubin Negative (NEGATIVE) Urine Urobilinogen Negative mg/dL (0.2-1.9) Urine Leukocyte Esterase Negative (NEGATIVE) Urine RBC None /HPF (0-2/HPF) Urine WBC None /HPF (0-5/HPF) Urine Squamous Epithelial Cells Few /LPF (</=FEW) Urine Bacteria Negative /HPF (NONE-FEW) Urine Hyaline Casts Many /LPF (NONE-FEW) Urine Mucus None /HPF (NONE-FEW) Urine Opiates Screen Positive Urine Barbiturates Screen Negative Ur Tricyclic Antidepressants Screen Negative Urine Phencyclidine Screen Negative Urine Amphetamines Screen Negative Urine Benzodiazepines Screen Negative Urine Cocaine Screen Negative Urine Cannabinoids Screen Negative Chemistry Test 09/20/18 09:48 09/20/18 09:54 09/20/18 10:06 09/20/18 11:17 White Blood Count 9.8 k/uL (4.5-11.0) Red Blood Count 4.55 M/uL (4.00-5.60) Hemoglobin 14.7 g/dL (14.0-18.0) Hematocrit 42.3 % (42.0-52.0) Mean Corpuscular Volume 93.0 fL (80.0-96.0) Mean Corpuscular Hemoglobin 32.4 pg (26.0-33.0) Mean Corpuscular Hemoglobin Concent 34.8 g/dL (32.0-36.0) Red Cell Distribution Width 13.1 % (11.5-14.5) Platelet Count 233 K/uL (150-450) Mean Platelet Volume 7.6 fL (7.2-11.1) Neutrophils (%) (Auto) 78.0 % (39.4-72.5) Lymphocytes (%) (Auto) 12.2 % (17.6-49.6) Monocytes (%) (Auto) 8.9 % (4.1-12.4) Eosinophils (%) (Auto) 0.3 % (0.4-6.7) Basophils (%) (Auto) 0.6 % (0.3-1.4) Nucleated RBC Relative Count (auto) 0.0 /100WBC Neutrophils # (Auto) 7.6 K/uL (2.0-7.4) Lymphocytes # (Auto) 1.2 K/uL (1.3-3.6) Monocytes # (Auto) 0.9 K/uL (0.3-1.0) Eosinophils # (Auto) 0.0 K/uL (0.0-0.5) Basophils # (Auto) 0.1 K/uL (0.0-0.1) Nucleated RBC Absolute Count (auto) 0.00 K/uL Prothrombin Time 15.0 seconds (12.0-14.4) Prothromb Time International Ratio 1.17 Activated Partial Thromboplast Time 31 seconds (23-35) Glomerular Filtration Rate Calc 52.7 Calcium Level 8.8 mg/dl (8.4-10.2) Total Bilirubin 0.7 mg/dl (0.2-1.3) Aspartate Amino Transf (AST/SGOT) 32 U/L (0-35) Alanine Aminotransferase (ALT/SGPT) 29 U/L (0-56) Alkaline Phosphatase 51 U/L (0-126) Ammonia 12 UMOL/L (9-33) Troponin I < 0.012 ng/ml Total Protein 7.1 g/dl (6.3-8.2) Albumin 3.6 g/dl (3.5-5.0) Serum Alcohol < 10 mg/dl Whole Blood Glucose 136 mg/DL (75-110) Blood Gas Puncture Site Left radial Blood Gas Patient Temperature 98.7 DEGREES Arterial Blood pH 7.45 (7.35-7.45) Arterial Blood Partial Pressure CO2 28 mmHg (32-37) Arterial Blood Partial Pressure O2 62 mmHg (60-80) Arterial Blood HCO3 20 mmol/L (20-26) Arterial Blood Oxygen Saturation 93 % (92-100) Arterial Blood Base Excess -4.0 mmol/L Philippe Test Acceptable Carboxyhemoglobin 2.1 % (< 5.0) Oxygen Liters/Minute Room air Urine Color Yellow Urine Clarity Clear Urine pH 5.0 pH (4.8-9.5) Urine Specific [place] 1.012 Urine Protein Negative mg/dL (NEGATIVE) Urine Glucose (UA) Negative mg/dL (NEGATIVE) Urine Ketones Negative mg/dL (NEGATIVE) Urine Blood Negative (NEGATIVE) Urine Nitrite Negative (NEGATIVE) Urine Bilirubin Negative (NEGATIVE) Urine Urobilinogen Negative mg/dL (0.2-1.9) Urine Leukocyte Esterase Negative (NEGATIVE) Urine RBC None /HPF (0-2/HPF) Urine WBC None /HPF (0-5/HPF) Urine Squamous Epithelial Cells Few /LPF (</=FEW) Urine Bacteria Negative /HPF (NONE-FEW) Urine Hyaline Casts Many /LPF (NONE-FEW) Urine Mucus None /HPF (NONE-FEW) Urine Opiates Screen Positive Urine Barbiturates Screen Negative Ur Tricyclic Antidepressants Screen Negative Urine Phencyclidine Screen Negative Urine Amphetamines Screen Negative Urine Benzodiazepines Screen Negative Urine Cocaine Screen Negative Urine Cannabinoids Screen Negative Coagulation Test 09/20/18 09:48 Prothrombin Time 15.0 seconds Prothromb Time International Ratio 1.17 Activated Partial Thromboplast Time 31 seconds Toxicology Test 09/20/18 09:48 09/20/18 11:17 Serum Alcohol < 10 mg/dl Urine Opiates Screen Positive Urine Barbiturates Screen Negative Ur Tricyclic Antidepressants Screen Negative Urine Phencyclidine Screen Negative Urine Amphetamines Screen Negative Urine Benzodiazepines Screen Negative Urine Cocaine Screen Negative Urine Cannabinoids Screen Negative Urinalysis Test 09/20/18 11:17 Urine Color Yellow Urine Clarity Clear Urine pH 5.0 pH (4.8-9.5) Urine Specific [place] 1.012 Urine Protein Negative mg/dL (NEGATIVE) Urine Glucose (UA) Negative mg/dL (NEGATIVE) Urine Ketones Negative mg/dL (NEGATIVE) Urine Blood Negative (NEGATIVE) Urine Nitrite Negative (NEGATIVE) Urine Bilirubin Negative (NEGATIVE) Urine Urobilinogen Negative mg/dL (0.2-1.9) Urine Leukocyte Esterase Negative (NEGATIVE) Urine RBC None /HPF (0-2/HPF) Urine WBC None /HPF (0-5/HPF) Urine Squamous Epithelial Cells Few /LPF (</=FEW) Urine Bacteria Negative /HPF (NONE-FEW) Urine Hyaline Casts Many /LPF (NONE-FEW) Urine Mucus None /HPF (NONE-FEW) EKG/Imaging EKG Interpretation 12 lead EKG: AFIB RVR 113 Rhythm: AFIB RVR Imaging Location: [facility] [place] Patient: Valerio Hays : 1935 Visit/Account:[id number] [place] CHEST SINGLE AP Indication: AMS Comparison: Chest x-ray 09/25/2016 Findings: Lungs: Calcified granulomas are seen in the right midlung zone, stable. Remaining lung parenchyma is clear. Mediastinum/pulmonary vasculature: Heart size and pulmonary vasculature are normal. Bones/soft tissues: There are old fractures left RIBS, involving 5, 6, and 7. These are unchanged from the prior study. Right ribs are intact. IMPRESSION: 1. No acute airspace opacity or pneumonia. 2. Stable calcified granulomas right lung. 3. Old posterior left rib fractures, unchanged from 09/25/2016. ED Course/Re-evaluation ED Course Patient is a in 82-year-old male here with complaints of intermittent confusion over the past couple days, increased alcohol ingestion, decreased oral intake of fluids and food. Patient was noted to have some confusion this morning when at tempting to start his car. Patient examined as dehydrated and was found to be tachycardic at time of evaluation initially with a ventricular rate of 113. Patient was also noted to have JERE. Patient was afebrile time of evaluation. Patient did not have any leukocytosis, electrolytes were unremarkable, urinalysis was normal, ABG was unremarkable. Patient didn't have opiates in his urinalysis otherwise was noted to be drinking more alcohol than normal. Patient was given 2 L of IV fluids and had improvement in symptoms. Heart rate improved significantly. Chest x-ray showed no acute findings. Patient declined CT imaging of the head due to discomfort. Patient was advised to follow up closely in the next day or 2 with his PCP for further evaluation and care. Patient was stable at time of discharge. Initially patient was in A. fib RVR which improved to normal sinus rhythm by time of discharge. Decision to Disposition Date: Sep 20, 2018 Decision to Disposition Time: 13:30 Depart Departure Latest Vital Signs Vital Signs Date Time Temp Pulse Resp B/P (MAP) Pulse Ox O2 Delivery O2 Flow Rate FiO2 09/20/18 13:20 121/64 (83) 09/20/18 13:10 99 17 91 09/20/18 09:49 98.7 Room Air Impression: Primary Impression: Dehydration Condition: Improved Disposition: HOME OR SELF-CARE Referrals: ZINA MARINO MD (PCP) Patient Instructions: Dehydration (ED) Additional Instructions: Please drink plenty of water. Please follow up closely in the next day with your family doctor. Please return promptly if she develop recurrent episodes of altered mental status, confusion. MONIQUE FONTENOT DO Sep 20, 2018 09:45
[2018-09-20] MEDS ORDERED: NS(*) 0.9% 1000 ML BAG 1,000 ML IV ONE (09:51)
[2018-09-20] MEDS ORDERED: AMOX-559 PO (10:00)
[2018-09-20] MEDS ORDERED: SULF1TAB24 PO (10:00)
[2018-09-20 10:04] LABS: PLATELET COUNT, AUTOMATED 233 K/uL (150-450)
[2018-09-20 10:10] LABS: INR 1.17
--- NOTE | 2018-09-20 11:08 | RADIOLOGY IMAGING REPORT ---
FACILITY: [facility] PATIENT NAME: Valerio Hays : 1935 MR: [id number] V: [id number] EXAM DATE: ORDERING PHYSICIAN: MONIQUE FONTENOT TECHNOLOGIST: Location: [facility] Patient: Valerio Hays : 1935 Visit/Account:[id number] Date of Sevice: 09/20/2018 CHEST SINGLE AP Indication: AMS Comparison: Chest x-ray 09/25/2016 Findings: Lungs: Calcified granulomas are seen in the right midlung zone, stable. Remaining lung parenchyma is clear. Mediastinum/pulmonary vasculature: Heart size and pulmonary vasculature are normal. Bones/soft tissues: There are old fractures left RIBS, involving 5, 6, and 7. These are unchanged fro m the prior study. Right ribs are intact. IMPRESSION: 1. No acute airspace opacity or pneumonia. 2. Stable calcified granulomas right lung. 3. Old posterior left rib fractures, unchanged from 09/25/2016. Report Dictated By: Waqar Kay at 09/20/2018 10:59 AM Report E-Signed By: Waqar Kay at 09/20/2018 11:04 AM WSN:[id number]
--- NOTE | 2018-09-20 11:12 | EKG ---
FACILITY: [facility] [place] PATIENT NAME: JW VALDEZ : [id number] MR: [id number] V: [id number] EXAM DATE: ORDERING PHYSICIAN: MONIQUE FONTENOT TECHNOLOGIST: Test Reason : AMS Blood Pressure : / mmHG Vent. Rate : 113 BPM Atrial Rate : 119 BPM P-R Int : 000 ms QRS Dur : 084 ms QT Int : 296 ms P-R-T Axes : 000 051 041 degrees QTc Int : 406 ms Atrial fibrillation with rapid ventricular response Low voltage QRS Septal infarct , age undetermined Abnormal ECG When compared with ECG of 25-SEP-2016 09:59, Atrial fibrillation has replaced Sinus rhythm Vent. rate has increased BY 46 BPM Septal infarct is now present Confirmed by MIKE HODGSON ([id number]) on 09/20/2018 12:14:54 PM Referred By: Confirmed By:MIKE HODGSON
[2018-09-20 13:20] VITALS: BP 121/64
== END 2018-09-20 13:46 | disposition home or self-care (01) ==
LOC: ER 09:54
DX: E86.0 Dehydration (principal); I48.91 Unspecified atrial fibrillation; R94.31 Abnormal electrocardiogram [ECG] [EKG]
CPT/HCPCS: 36416; 36600; 71045; 80305; 81001; 82140; 82375; 82803; 82948; 84443; 84484; 85025; 85610; 85730; 93005; 96360; 99284; G0480; J7030; 80320; 82040; 82247; 82310; 82374; 82435; 82565; 82947; 84075; 84132; 84155; 84295; 84450; 84460; 84520

== ENCOUNTER → 2018-09-20 | Outpatient (CLI) | payer MEDICARE, OTHER ==
[~2018-09-20] MED LIST changes: -GADOBENATE 529MG/1ML 15ML VIAL IVP ONE; +SULF1TAB24 PO
== END ==
LOC: AMB 09:14
PROVIDERS: ATTEND Nurse Practitioner
DX: R41.82 Altered mental status, unspecified (principal); R00.0 Tachycardia, unspecified
CPT/HCPCS: A0425; A0427

== ENCOUNTER 2018-09-24 10:30 | Outpatient (RCR) | payer MEDICARE, OTHER ==
[~2018-09-24 10:30] MED LIST changes: +SULF1TAB24 PO
== END 2018-09-24 12:04 | disposition home or self-care (01) ==
LOC: PT 10:30
PROVIDERS: ATTEND Nurse Practitioner
DX: T81.31XA Disruption of external operation (surgical) wound, not elsewhere classified, initial encounter (principal); L89.323 Pressure ulcer of left buttock, stage 3; L89.313 Pressure ulcer of right buttock, stage 3; E11.9 Type 2 diabetes mellitus without complications

== ENCOUNTER 2018-09-28 11:14 | Inpatient (IN) | payer MEDICARE, OTHER ==
[~2018-09-28] VITALS: Ht 170.2 cm; Wt 68.9 kg
[2018-09-28 11:43] VITALS: BP 157/81
--- NOTE | 2018-09-28 12:35 | EKG ---
FACILITY: [facility] PATIENT NAME: JW VALDEZ : [id number] MR: [id number] V: [id number] EXAM DATE: ORDERING PHYSICIAN: ZINA MARINO TECHNOLOGIST: PARISA Vu Reason : LE EDEMA Blood Pressure : / mmHG Vent. Rate : 076 BPM Atrial Rate : 076 BPM P-R Int : 214 ms QRS Dur : 090 ms QT Int : 402 ms P-R-T Axes : 113 036 049 degrees QTc Int : 452 ms Sinus rhythm with 1st degree AV block with premature atrial complexes Otherwise normal ECG When compared with ECG of 20-SEP-2018 11:01, Sinus rhythm has replaced Atrial fibrillation Vent. rate has decreased BY 37 BPM Confirmed by MIKE HODGSON ([id number]) on 09/29/2018 6:35:47 AM Referred By: NED Confirmed By:MIKE HODGSON
--- NOTE | 2018-09-28 12:49 | History & Physical - General ---
History of Present Illness Chief Complaint altered mental state, osteomyelitis History of Present Illness Patient is a 83-year-old male who came in today to see me in the office for the follow-up of diabetic foot ulcers. Patient was seen by me on 09/07/18 and after that 09/17/18 he was being treated for ulcer on the dorsum of his right foot when he was noted to have an ulcer on the left 2nd toe which was draining and appears to be infected he was initially placed on Augmentin and Bactrim and then it was switched to Levaquin and cultures showed growth of Pseudomonas and Strep Agalac. She was treated with Levaquin for at least 2 weeks and most recently was seen in the emergency room on 09/20/18 because of altered mental state he was found to be dehydrated and was given 2 L of IV fluids his antibiotics were changed to Augmentin and Bactrim. Patient also underwent MRI of both feet on 09/17/18. MRI of the right foot showed evidence of soft tissue edema but no evidence of osteomyelitis. Examination of the left 2nd toe showed findings consistent with osteomyelitis of the dorsal head and neck junction of the 2nd proximal phalanx there was some soft tissue edema consistent with cellulitis. Today patient appears to be more confused than before he is not delirious but he does not remember the date of his appointment and does not remember what antibiotics he was placed on. He denies any fever or chills Patient was also found to have more edema of the lower extremities it appears that he is unable to take care of himself at home and the plan was to start with home health care but I decided to admit patient to the hospital because of decline in the physical and mental state Past medical history significant for diabetes mellitus which appears to be under good control and most recent labs have shown hemoglobin A1c of 5.9 Patient also has history of drinking alcohol at home but is unable to tell me how much he is drinking Past medical history significant for hypertension and is doing well with the present treatment History of chronic edema of the lower extremities is currently on low-dose of furosemide and potassium and edema has improved Also has history of COPD he is to be using oxygen at home but not does not use i t often History Problems: (1) Dyslipidemia Status: Chronic (2) Altered mental state Status: Acute (3) Osteomyelitis Status: Acute (4) Diabetic foot ulcers Status: Acute (5) GERD (gastroesophageal reflux disease) Status: Chronic (6) BPH (benign prostatic hyperplasia) Status: Chronic (7) Edema Status: Chronic (8) Cellulitis Status: Chronic (9) COPD (chronic obstructive pulmonary disease) Status: Chronic (10) Benign hypertension Status: Chronic Home Meds Active Scripts Simvastatin (SIMVASTATIN) 40 Mg Tablet, 1 MG PO QHS, #90 TAB 3 Refills Prov:ZINA MARINO MD 06/03/18 Terazosin Hcl (TERAZOSIN HCL) 5 Mg Capsule, 5 MG PO QHS, #90 CAPSULE 3 Refills Prov:ZINA MARINO MD 05/08/18 Omeprazole (OMEPRAZOLE) 20 Mg Capsule., 1 CAP PO QDAY, #90 CAP 4 Refills Prov:ZINA MARINO MD 05/04/18 Enalapril Maleate (ENALAPRIL MALEATE) 20 Mg Tablet, 20 MG PO BID, #180 TAB 4 Refills Prov:ZINA MARINO MD 03/24/18 Carvedilol (CARVEDILOL) 25 Mg Tablet, 25 MG PO BID, #180 TAB 4 Refills Prov:ZINA MARINO MD 03/24/18 Furosemide (FUROSEMIDE) 20 Mg Tablet, 1 TAB PO QDAY, #90 TAB 4 Refills Prov:ZINA MARINO MD 03/24/18 Hydrochlorothiazide (HYDROCHLOROTHIAZIDE) 25 Mg Tablet, 1 TAB PO QDAY, #90 TAB 4 Refills Prov:ZINA MARINO MD 03/24/18 Potassium Chloride (POTASSIUM CHLORIDE) 20 Meq Tab.er.prt, 1 TAB PO BID, #180 TAB 4 Refills Prov:ZINA MARINO MD 03/24/18 Oxygen (OXYGEN) Inha, 2 L INH QDAY, #2 L Prov:ZINA MARINO MD 09/25/16 Reported Medications Glimepiride (GLIMEPIRIDE) 2 Mg Tablet, 2 MG PO QDAY 06/18/18 Aspirin (ASPIR 81) 81 Mg Tablet.dr, 1 TAB PO QDAY, TAB 07/25/15 Discontinued Reported Medications Amoxicillin/Pot Clav 875-125 Mg Tab (AUGMENTIN 875-125 TABLET) 1 Each Tablet, 1 TAB PO Q12H, TAB 09/20/18 Sulfamethoxazole/Trimethoprim (SULFAMETHOXAZOLE-TMP DS TABLET) 1 Each Tablet, 1 TAB PO Q12H 09/20/18 Mupirocin (MUPIROCIN) 5 Gm Powder, 5 GM MC 06/18/18 Multivitamin (DAILY VALUE) 1 Each Tablet, 1 TAB PO QDAY 07/25/15 Lutein (LUTEIN) 6 Mg Capsule, 1 CAP PO QDAY, CAPSULE 07/25/15 Saw [place] Fruit (SAW PALMETTO) 450 Mg Capsule, 1 CAP PO QDAY, CAPSULE 07/25/15 Calcium Carbonate (CALCIUM) 600 Mg Tablet, 2 TAB PO QDAY 07/25/15 Discontinued Scripts Levofloxacin 750 Mg Tab (LEVAQUIN 750 MG TAB) 750 Mg Tablet, 1 TAB PO DAILY, #7 TAB 0 Refills Prov:ZINA MARINO MD 09/18/18 Allergies: Coded Allergies: No Known Drug Allergies (Unverified , 10/22/17) Patient History: FH: emphysema FATHER, , Age:84 FH: heart disease MOTHER, , Age:77 Hx Smoking: Yes Smoking Status: Former Smoker When Quit Tobacco?: Quit in 2009 Hx Alcohol Use: Yes Alcohol Used: Beer Hx Substance Use Disorder: No Review of Systems ROS: Constitutional: Reports: Malaise, Weakness; Denies: Fever, Chills ROS: Eyes: Denies: Eye Pain, Itchy Eye, Vision change ROS: Neurological: Denies Syncope, Denies Dizziness; Reports Other (altered mental state) ROS: Respiratory: Reports SOB w/ Exertion; Denies Dyspnea ROS: Cardiac: Denies Chest Pain at Rest, Denies Chest Pain w/ Exertion, Denies Palpitations ROS: Gastrointestinal: Denies Nausea, Denies Vomiting, Denies Diarrhea, Denies Constipation ROS: Genitourinary: Reports Urinary Frequency; Denies Dyuria, Denies Hematuria ROS: Psych: Denies Depression, Denies Anxiety; Reports Insomnia ROS: Endocrine: Denies Intolerence to Heat Exam Constitutional: Well Nourished, Well Developed, No Distress Eyes: Right Conjunctiva Clear, Right Sclera Clear, Right Scleral Ictarus Neck: Full Range of Motion, Non-tender, No Masses, Normal Thyroid Respiratory: CTA throughout, Even, Unlabored Cardiac: Regular Rate & Rhythm, No Gallop, No JVD, No Murmur Edema: 3+ Pedal, 3+ Ankle, 3+ Lower Legs Inspection: Flat Percussion: All Quadrants Tympanic Palpation: Soft, Non-tender, No Guarding, No Hepatosplenomegaly Bowel Sounds: Active to all 4 Quadrants Male : No Suprapubic Tenderness, No CVA Tenderness Lymph: No Cervical Lymphadenopathy Examination of the right foot showed a small ulcer of about 0.5 cm in size which is at least stage III with minimal yellow drainage there is surrounding edema but is nontender to touch Examination of left foot showed 0.5 cm size ulcer stage IV present on the dorsal aspect of 2nd toe proximal phalanx there is diffuse swelling of the 2nd toe Distal pulses hard to palpate because of edema Musculoskeletal: Full ROM all 4 Extremitites Neurological: Cranial Nerves II-XII Intact, No Parasthesia (alert and awake and oriented but with declining memory) Medical Decision Making Data Points Result Diagram: 09/28/18 1218 09/28/18 1218 Item Value Date Time B-Type Natriuretic Peptide 57 pg/ml 09/28/18 1218 C-Reactive Protein 2.7 mg/dl H 09/28/18 1218 Troponin I < 0.012 ng/ml 09/28/18 1218 Erythrocyte Sedimentation Rate 17 mm/HOUR 09/28/18 1218 EKG / Imaging Monitor Interpretation: Normal Sinus Rhythm Assessment and Plan Problems: (1) Osteomyelitis of ankle or foot, right, acute Status: Acute Assessment & Plan: Patient has osteomyelitis of the left 2nd toe along with stage IV ulcer on the dorsal aspect of the proximal phalanx he has been treated with antibiotics in the form of Levaquin to cover for Pseudomonas which was going from his wound earlier he originally had an appointment to see or toe on 10/01/18 however I expect that he needs amputation of the 2nd toe and will ask for Dr. Batres to evaluate and perform amputation of the 2nd toe if indicated he has history of peripheral neuropathy and NIDDM with excellent control of blood glucose in the past labs from today has shown normal CBC chemistry and sedimentation rate and CRP slightly elevated at 0.7 Also has a ulcer on his right foot dorsal aspect which may be accompanied by cellulitis without any osteomyelitis (2) Cellulitis Status: Chronic Assessment & Plan: The patient may have cellulitis of the left 2nd toe and dorsum of the right foot and has been placed on Levaquin to cover for Pseudomonas will monitor his labs (3) Altered mental state Status: Acute Assessment & Plan: I think altered mental state is related to combination of factors including underlying Osteomyelitis/cellulitis. He does not appear to be dehydrated kidney functions are normal chest x-ray was unremarkable about one week ago I do plan to do a CT head patient also has history of alcohol consumption at home he is unable to tell me how much he was drinking he lives alone (4) Diabetic foot ulcers Status: Acute (5) Diabetes mellitus, type 2 Status: Chronic Assessment & Plan: Diabetes otherwise appears to be under good control and recent hemoglobin A1c was 5.9 was on glimepiride 2 mg every day which is on hold for now will continue to monitor his blood glucose in the hospital (6) Edema Status: Chronic Assessment & Plan: H and has history of chronic edema of the lower extremities without the diagnosis of congestive heart failure and has been on furosemide 20 mg at home along with hydrochlorothiazide but edema at least to have worsened significantly he is going to be started on IV furosemide today and we'll monitor his intake output and daily weight (7) Benign hypertension Status: Chronic Assessment & Plan: Blood pressure was elevated today he will continue with carvedilol and enalapril but I'm holding off on hydrochlorothiazide (8) COPD (chronic obstructive pulmonary disease) Status: Chronic Assessment & Plan: It is stable at this time Time Spent on Plan of Care: > 30 min Venous Thromboembolism VTE Risk Physician Assess for VTE Risk: Yes Patient's VTE Risk: High VTE Diagnostic Test 2 Days Prior to Admit: No Antithrombotics Is Pt On Any Antithrombotics?: Yes Problem Qualifiers (1) Cellulitis: Site of cellulitis: extremity Site of cellulitis of extremity: toe Laterality: left Qualified Codes: L03.032 - Cellulitis of left toe (2) Diabetic foot ulcers: Diabetic foot ulcer location: midfoot Diabetes mellitus type: type 2 Laterality: right Non-pressure ulcer stage: with necrosis of muscle Qualified Codes: E11.621 - Type 2 diabetes mellitus with foot ulcer; L97.413 - Non-pressure chronic ulcer of right heel and midfoot with necrosis of muscle (3) Diabetes mellitus, type 2: Diabetes mellitus termite treater helper insulin use: without termite treater helper use Diabetes mellitus complication status: with neurologic complications Diabetes mellitus complication detail: with polyneuropathy Qualified Codes: E11.42 - Type 2 diabetes mellitus with diabetic polyneuropathy (4) Edema: Edema type: localized Qualified Codes: R60.0 - Localized edema (5) COPD (chronic obstructive pulmonary disease): COPD type: emphysema ZINA MARINO MD Sep 28, 2018 12:49
[2018-09-28 13:00] VITALS: Ht 170.2 cm; Wt 68.9 kg
[2018-09-28] MEDS ORDERED: IOPAMIDOL 76% 75 ML INFUS BTL 0 ML ONE (14:06)
[2018-09-28] MEDS ORDERED: NS(*) 0.9% 50 ML BAG 0 ML ONE (14:06)
[2018-09-28] MEDS: FUROSEMIDE 40 MG/4 ML VIAL IVP SCH (14:29)
--- NOTE | 2018-09-28 15:35 | RADIOLOGY IMAGING REPORT ---
FACILITY: [facility] PATIENT NAME: Valerio Hays : 1935 MR: [id number] V: [id number] EXAM DATE: ORDERING PHYSICIAN: ZINA MARINO TECHNOLOGIST: Location: [facility] Patient: Valerio Hays : 1935 Visit/Account:[id number] Date of Sevice: 09/28/2018 Study: CT scan of the brain without intravenous contrast. Indication:Altered metal status Comparison study: October 22, 2017 Technique: Multiple axial images were obtained through the brain without the use of intravenous contr ast. One of the following dose optimization techniques was utilized in the performance of this exam: Autom ated exposure control; adjustment of the mA and/or kV according to the patient's size; or use of an i terative reconstruction technique. Specific details can be referenced in the facility's radiology C T exam operational policy. The examination demonstrates no evidence of acute intracranial hemorrhage. There is no evidence of ex tra-axial collection or hydrocephalus. There is no abnormal density identified within the brain parenchyma. There is mild atrophy present. T his is unchanged. There is no evidence of disruption of the peripheral estevez-white junction. The bony structures are unremarkable. IMPRESSION: No acute intracranial abnormality identified. Specifically, there is no evidence of acute intracranial hemorrhage. Report Dictated By: Kurtis Landon at 09/28/2018 3:29 PM Report E-Signed By: Kurtis Landon at 09/28/2018 3:32 PM WSN:[id number]
[2018-09-28 16:54] VITALS: BP 146/87
[2018-09-28 19:36] VITALS: BP 137/66
--- NOTE | 2018-09-28 20:19 | General Surgery Consultation ---
History of Present Illness Requesting Physician Dr. Gustafson, internal medicine Reason for Consult Left 2nd toe ulcer with underlying osteomyelitis Chief Complaint Chronic left 2nd toe ulcer History of Present Illness 83-year-old gentleman with chronic comorbidities including diabetes, COPD, hyper tension, hyperlipidemia is admitted to the hospital by his PCM with an ulcer on the dorsum of his left toe over the proximal phalanx. He has been treated for this for several weeks and in fact an MRI has revealed osteomyelitis in the proximal phalanx of his left 2nd toe. He also has an an ulcer on the dorsum of his right foot but an MRI of his right foot revealed only cellulitis without any bony involvement. He has no specific complaints but has neuropathy and cannot feel his toes. He has been on multiple rounds of antibiotics over the last couple of months. He was felt to have increased confusion and increased swelling in both of his legs and so he was admitted for further management of these problems. History Problems: (1) Dyslipidemia Status: Chronic (2) GERD (gastroesophageal reflux disease) Status: Chronic (3) BPH (benign prostatic hyperplasia) Status: Chronic (4) Edema Status: Chronic (5) Diabetes mellitus, type 2 Status: Chronic (6) COPD (chronic obstructive pulmonary disease) Status: Chronic (7) Benign hypertension Status: Chronic Home Meds Active Scripts Simvastatin (SIMVASTATIN) 40 Mg Tablet, 1 MG PO QHS, #90 TAB 3 Refills Prov:ZINA GUSTAFSON MD 06/03/18 Terazosin Hcl (TERAZOSIN HCL) 5 Mg Capsule, 5 MG PO QHS, #90 CAPSULE 3 Refills Prov:ZINA GUSTAFSON MD 05/08/18 Omeprazole (OMEPRAZOLE) 20 Mg Capsule., 1 CAP PO QDAY, #90 CAP 4 Refills Prov:ZINA GUSTAFSON MD 05/04/18 Enalapril Maleate (ENALAPRIL MALEATE) 20 Mg Tablet, 20 MG PO BID, #180 TAB 4 Refills Prov:ZINA GUSTAFSON MD 03/24/18 Carvedilol (CARVEDILOL) 25 Mg Tablet, 25 MG PO BID, #180 TAB 4 Refills Prov:ZINA GUSTAFSON MD 03/24/18 Furosemide (FUROSEMIDE) 20 Mg Tablet, 1 TAB PO QDAY, #90 TAB 4 Refills Prov:ZINA GUSTAFSON MD 03/24/18 Hydrochlorothiazide (HYDROCHLOROTHIAZIDE) 25 Mg Tablet, 1 TAB PO QDAY, #90 TAB 4 Refills Prov:ZINA GUSTAFSON MD 03/24/18 Potassium Chloride (POTASSIUM CHLORIDE) 20 Meq Tab.er.prt, 1 TAB PO BID, #180 TAB 4 Refills Prov:ZINA GUSTAFSON MD 03/24/18 Oxygen (OXYGEN) Inha, 2 L INH QDAY, #2 L Prov:ZINA GUSTAFSON MD 09/25/16 Reported Medications Glimepiride (GLIMEPIRIDE) 2 Mg Tablet, 2 MG PO QDAY 06/18/18 Aspirin (ASPIR 81) 81 Mg Tablet.dr, 1 TAB PO QDAY, TAB 07/25/15 Discontinued Reported Medications Amoxicillin/Pot Clav 875-125 Mg Tab (AUGMENTIN 875-125 TABLET) 1 Each Tablet, 1 TAB PO Q12H, TAB 09/20/18 Sulfamethoxazole/Trimethoprim (SULFAMETHOXAZOLE-TMP DS TABLET) 1 Each Tablet, 1 TAB PO Q12H 09/20/18 Mupirocin (MUPIROCIN) 5 Gm Powder, 5 GM MC 06/18/18 Multivitamin (DAILY VALUE) 1 Each Tablet, 1 TAB PO QDAY 07/25/15 Lutein (LUTEIN) 6 Mg Capsule, 1 CAP PO QDAY, CAPSULE 07/25/15 Saw [place] Fruit (SAW PALMETTO) 450 Mg Capsule, 1 CAP PO QDAY, CAPSULE 07/25/15 Calcium Carbonate (CALCIUM) 600 Mg Tablet, 2 TAB PO QDAY 07/25/15 Discontinued Scripts Levofloxacin 750 Mg Tab (LEVAQUIN 750 MG TAB) 750 Mg Tablet, 1 TAB PO DAILY, #7 TAB 0 Refills Prov:ZINA GUSTAFSON MD 09/18/18 Allergies: Coded Allergies: No Known Drug Allergies (Unverified , 10/22/17) Family History: FH: emphysema FATHER, , Age:84 FH: heart disease MOTHER, , Age:77 Review of Systems All Systems Reviewed/Normal: Yes, Except as Noted Exam Vital Signs Vital Signs Date Time Temp Pulse Resp B/P (MAP) Pulse Ox O2 Delivery O2 Flow Rate FiO2 09/28/18 19:43 93 09/28/18 19:36 97.4 84 16 137/66 (89) Room Air 09/28/18 17:34 3.0 General Appearance: Alert, Awake, No Acute Distress, Afebrile Extremities: Warm, Perfused (both lower extremities are very edematous, 3+ plus from knees to feet. On the dorsum of his left 2nd toe over the proximal phalanx is a 4 mm ulceration. The underlying bone is palpable at the base of the ulcer. The base is covered with purulent material but there is no surrounding erythema. His feet are warm with good capillary refill but pulses are not palpable due to edema.) Psych: Alert & Oriented X3, Appropriate Mood & Affect Medical Decision Making Data Points Result Diagram: 09/28/18 1218 09/28/18 1218 Assessment and Plan Problems: (1) Diabetic foot ulcers Status: Acute Assessment & Plan: 09/28/18: He is admitted by Dr. Gustafson who is managing his comorbidities. Certainly with a full thickness ulcer and exposed bone with evidence of osteomyelitis in the bone at the base of the ulcer on MRI, the recommendation would be amputation of his 2nd toe on his left foot. We will perform a tennis racquet incision around the toe with extension on the dorsum of his foot over the 2nd metatarsal bone for adequate debridement and trimming back enough bone to facilitate closure which may include a portion of the 2nd distal metatarsal bone. It would be important to get enough soft tissue to cover the bony structures. He is certainly at risk for wound infection and wound breakdown and so it would be nice to trim the bone back far enough that if the skin doesn 't heal very well there is enough underlying soft tissue covering the bone to avoid full wound dehiscence requiring further debridement and closure potentially a higher level. I have explained this to him in detail and he seems agreeable with this plan. I will have to look at the OR schedule and schedule this for the next day or 2. (2) Osteomyelitis Status: Acute Condition Stable Time Spent: < 30 min Venous Thromboembolism Antithrombotics Is Pt On Any Antithrombotics?: Yes Problem Qualifiers (1) Diabetic foot ulcers: Diabetic foot ulcer location: midfoot Diabetes mellitus type: type 2 Laterality: right Non-pressure ulcer stage: with necrosis of muscle Qualified Codes: E11.621 - Type 2 diabetes mellitus with foot ulcer; L97.413 - Non-pressure chronic ulcer of right heel and midfoot with necrosis of muscle (2) Osteomyelitis: Osteomyelitis type: other chronic Osteomyelitis location: foot Laterality: left Qualified Codes: M86.672 - Other chronic osteomyelitis, left ankle and foot MIKE NEGRETE MD Sep 28, 2018 20:19
[2018-09-28] MEDS: TERAZOSIN HCL 1 MG CAP PO SCH (20:46)
[2018-09-28] MEDS: CARVEDILOL 25 MG TABLET PO SCH (20:46)
[2018-09-28] MEDS: ENALAPRIL MALEATE 10 MG TAB PO SCH (20:47)
[2018-09-28] MEDS: SIMVASTATIN 40 MG TAB PO SCH (20:47)
[2018-09-29 03:48] VITALS: BP 90/49
[2018-09-29 05:43] LABS: PLATELET COUNT, AUTOMATED 146 K/uL (150-450)
--- NOTE | 2018-09-29 08:08 | General Surgery Progress Note ---
Subjective Progress Notes Subjective No complaints this morning. Physical Exam Vital Signs Date Time Temp Pulse Resp B/P (MAP) Pulse Ox O2 Delivery O2 Flow Rate FiO2 09/29/18 03:48 98.0 76 14 90/49 (63) 95 Nasal Cannula 0.5 Intake and Output 09/29/18 06:59 Intake Total 600 ml Output Total 1640 ml Balance -1040 ml Intake Oral 600 ml Output Urine Total 1640 ml # Voids 2 General Appearance: Alert, Awake, No Acute Distress, Afebrile Extremities: Warm, Perfused, Other (Decreased swelling in both legs. Ulcers look the same.) Result Diagram: 09/29/18 0536 09/29/18 0536 Monitor Interpretation: Normal Sinus Rhythm Assessment and Plan Problems: (1) Diabetic foot ulcers Status: Acute Assessment & Plan: 09/28/18: He is admitted by Dr. Gustafson who is managing his comorbidities. Certainly with a full thickness ulcer and exposed bone with evidence of osteomyelitis in the bone at the base of the ulcer on MRI, the recommendation would be amputation of his 2nd toe on his left foot. We will perform a tennis racquet incision around the toe with extension on the dorsum of his foot over the 2nd metatarsal bone for adequate debridement and trimming back enough bone to facilitate closure which may include a portion of the 2nd distal metatarsal bone. It would be important to get enough soft tissue to cover the bony structures. He is certainly at risk for wound infection and wound breakdown and so it would be nice to trim the bone back far enough that if the skin doesn't heal very well there is enough underlying soft tissue covering the bone to avoid full wound dehiscence requiring further debridement and closure potentially a higher level. I have explained this to him in detail and he seems agreeable with this plan. I will have to look at the OR schedule and schedule this for the next day or 2. 09/29/18: Doing well. Will elevate both legs and apply MELONIE wraps to both legs to help decrease edema in legs. Will plan on left 2nd toe amputation through metatarsal bone tomorrow evening after edema further improves. Plan explained to patient and he's agreeable with it. (2) Osteomyelitis Status: Acute Condition Stable. Time Spent: < 30 min Exam Sepsis Risk: No Definite Risk Problem Qualifiers (1) Diabetic foot ulcers: Diabetic foot ulcer location: midfoot Diabetes mellitus type: type 2 Laterality: right Non-pressure ulcer stage: with necrosis of muscle Qualified Codes: E11.621 - Type 2 diabetes mellitus with foot ulcer; L97.413 - Non-pressure chronic ulcer of right heel and midfoot with necrosis of muscle (2) Osteomyelitis: Osteomyelitis type: other chronic Osteomyelitis location: foot Laterality: left Qualified Codes: M86.672 - Other chronic osteomyelitis, left ankle and foot MIKE NEGRETE MD Sep 29, 2018 08:07
[2018-09-29] MEDS ORDERED: FUROSEMIDE 40 MG/4 ML VIAL IVP SCH (09:00)
[2018-09-29] MEDS ORDERED: POTASSIUM CHL 20 MEQ TABCR PO SCH (09:00)
[2018-09-29 09:27] VITALS: BP 122/56
[2018-09-29] MEDS: FUROSEMIDE 40 MG/4 ML VIAL IVP SCH (09:28)
[2018-09-29] MEDS: PANTOPRAZOLE SOD 40 MG TABEC PO SCH (09:29)
[2018-09-29] MEDS: CARVEDILOL 25 MG TABLET PO SCH ×2 (09:29→20:17)
[2018-09-29] MEDS: ASPIRIN 81 MG ENTERIC COATED PO SCH (09:29)
[2018-09-29] MEDS: ENOXAPARIN 40 MG/0.4ML SYR SC SCH (09:29)
[2018-09-29] MEDS: ENALAPRIL MALEATE 10 MG TAB PO SCH ×2 (09:29→20:16)
[2018-09-29] MEDS ORDERED: NS(*) 0.9% 500 ML BAG 500 ML ONE (09:58)
[2018-09-29] MEDS: LEVOFLOXACIN/D5W*500 MG/100 ML 100 ML IVPB SCH (10:02)
--- NOTE | 2018-09-29 12:05 | Medical Nutrition Therapy ---
Nutrition Anthropometrics Height (Inches): 67.00 Height (Calculated Centimeters: 170.251200 Weight (Pounds): 159 Weight (Calculated Kilograms): 72.121 Benjamin Nutrition Score: Adequate Benjamin Nutrition Risk Score: 16 Dietary Referral Nutrition Risk Factors: Unplanned Loss >10lbs, Stg 2-4 Press Ulcer Nutrition Risk Comment: Physical Findings Physical Appearance: WNL Skin Appearance Skin Appearance: Edema Edema Location Modifier: Right Edema Location: Lower Extremity Type of Edema: Degree of Edema: 2+ Gastrointestinal Symptoms GI Symtoms: Diarrhea Tube Present: Bowel Sounds: Recent Bowel Pattern: Diarrhea Stool Characteristics: Nutritional Diagnosis Nutritional Risk Acuity 2: Abcess/Non-Healing Wound Nutritional Risk Acuity 3: OR & > 80 yrs, GERD Past Medical History: Hx of T2DM, COPD, GERD, hyperlipidemia. Nutritional Acuity: 2-Moderate Nutrition Diagnosis: Increased Nutrient Needs Nutrition Etiology: Physiological Causes Nutrition Problem/Etiology/Sym: Increased nutrient needs r/t amputation of toe AEB alb at 2.4. Energy Requirement: 1700 (M-SJ * 1.4 SF) Protein Requirement: 90 (1.3g/kg) Fluid Requirement: 1700 (1ml/kcal) Diet Type: 2 Gram Sodium (NA), Diabetic Nutrition Intervention: Encourage intake, Change diet, Check glucose Diet Comment To [facility]: OFFER NUTRITION SUPPLEMENT Nutrition Monitoring & Eval RD Patient Assessment Time: [address] Assessment Type: RD Assessment Patient Nutrition Acuity: 2-Moderate Follow Up Date: Oct 03, 2018 Nutritional Comment: 09/29 Pt admitted for osteomyelitis of left ankle/foot. Pt is T2DM, recommend Diabetic Diet as random glucose was 157 this morning. Encourage intake, specifically protein as Alb is at 2.4. Pt awaiting surgery for amputation of toe. Will follow. KULDIP HIGUERA Sep 29, 2018 09:49
[2018-09-29] MEDS: GLIMEPIRIDE 2 MG TAB PO SCH (12:45)
[2018-09-29 16:41] VITALS: BP 133/61
--- NOTE | 2018-09-29 16:41 | Hospitalist Progress Note ---
Subjective Progress Notes Subjective Patient was seen today for the follow-up he denies any new complaints he hasn't lost any weight but edema appears to be better labs show normal kidney function and potassium of 3.4 Physical Exam Vital Signs Date Time Temp Pulse Resp B/P (MAP) Pulse Ox O2 Delivery O2 Flow Rate FiO2 09/29/18 12:28 93 09/29/18 09:36 Room Air 09/29/18 09:27 97.9 73 16 122/56 (78) 09/29/18 03:48 0.5 Intake and Output 09/29/18 07:00 Intake Total 600 ml Output Total 1640 ml Balance -1040 ml Intake Oral 600 ml Output Urine Total 1640 ml # Voids 2 General Appearance: Alert, Awake, No Acute Distress, Afebrile Neuro: No Gross deficits Eyes: PERRLA Cardiovascular: Normal Rhythm & Peripheral Pulses, Regular Rate and Rhythm, Other (on 22+ edema lower extremities) Respiratory: No Respiratory Distress, Clear to Auscultation GI: Soft and Non-Tender Psych: Alert & Oriented X3, Appropriate Mood & Affect Result Diagram: 09/29/1836 09/29/1836 [place] [facility] [place] NAME: Valerio Hays : 1935 MR: [id number] V: [id number] EXAM DATE: ORDERING PHYSICIAN: ZINA MARINO TECHNOLOGIST: [facility] Patient: Valerio Hays : 1935 Visit/Account:[id number] Date of Sevice: 09/28/2018 Study: CT scan of the brain without intravenous contrast. Indication:Altered metal status Comparison study: October 22, 2017 Technique: Multiple axial images were obtained through the brain without the use of intravenous contrast. One of the following dose optimization techniques was utilized in the perfo rmance of this exam: Automated exposure control; adjustment of the mA and/or kV according to the patient's size; or use of an iterative reconstruction technique. Specific details can be referenced in the facility's radiology CT exam operational policy. The examination demonstrates no evidence of acute intracranial hemorrhage. There is no evidence of extra-axial collection or hydrocephalus. There is no abnormal density identified within the brain parenchyma. There is mild atrophy present. This is unchanged. There is no evidence of disruption of the peripheral estevez-white junction. The bony structures are unremarkable. IMPRESSION: No acute intracranial abnormality identified. Specifically, there is no evidence of acute intracranial hemorrhage. Report Dictated By: Kurtis Landon at 09/28/2018 3:29 PM Report E-Signed By: Kurtis Landon at 09/28/2018 3:32 PM WSN:DS2HI Monitor Interpretation: Normal Sinus Rhythm Assessment and Plan Problems: (1) Osteomyelitis of ankle or foot, right, acute Status: Acute Assessment & Plan: Patient has osteomyelitis of the left 2nd toe along with stage IV ulcer on the dorsal aspect of the proximal phalanx he has been treated with antibiotics in the form of Levaquin to cover for Pseudomonas which was going from his wound earlier he originally had an appointment to see or toe on 10/01/18 however I expect that he needs amputation of the 2nd toe and will ask for Dr. Guillen to evaluate and perform amputation of the 2nd toe if indicated he has history of peripheral neuropathy and NIDDM with excellent control of blood glucose in the past labs from today has shown normal CBC chemistry and sedimentation rate and CRP slightly elevated at 0.7 Also has a ulcer on his right foot dorsal aspect which may be accompanied by cellulitis without any osteomyelitis 12/16/17 patient has been seen by Dr. Guillen and is going to have amputation of the left 2nd toe and will continue with Levaquin for now (2) Cellulitis Status: Chronic Assessment & Plan: The patient may have cellulitis of the left 2nd toe and dorsum of the right foot and has been placed on Levaquin to cover for Pseudomonas will monitor his labs 09/29/18 blood cultures are negative so far will continue with Levaquin (3) Altered mental state Status: Acute Assessment & Plan: I think altered mental state is related to combination of factors including underlying Osteomyelitis/cellulitis. He does not appear to be dehydrated kidney functions are normal chest x-ray was unremarkable about one week ago I do plan to do a CT head patient also has history of alcohol consumption at home he is unable to tell me how much he was drinking he lives alone 09/29/18 mental status is improved CT head is negative (4) Diabetic foot ulcers Status: Acute (5) Diabetes mellitus, type 2 Status: Chronic Assessment & Plan: Diabetes otherwise appears to be under good control and recent hemoglobin A1c was 5.9 was on glimepiride 2 mg every day which is on hold for now will continue to monitor his blood glucose in the hospital 09/29/18. Resume glimepiride 2 mg daily in the morning (6) Edema Status: Chronic Assessment & Plan: Patient has history of chronic edema of the lower extremities without the diagnosis of congestive heart failure and has been on furosemide 20 mg at home along with hydrochlorothiazide but edema at least to have worsened significantly he is going to be started on IV furosemide today and we'll monitor his intake output and daily weight 09/29/18 edema has improved patient is wearing compression stockings with Luis Enrique wrap there is no evidence of congestive heart failure he is currently on furosemide 40 mg daily (7) Benign hypertension Status: Chronic Assessment & Plan: Blood pressure was elevated today he will continue with carvedilol and enalapril but I'm holding off on hydrochlorothiazide 09/29/18 blood pressure is fairly low this morning and the dose of enalapril has been reduced from 20 mg twice a day to 10 mg twice a day (8) COPD (chronic obstructive pulmonary disease) Status: Chronic Assessment & Plan: It is stable at this time Time Spent on Plan of Care: < 30 min Exam Sepsis Risk: No Definite Risk Problem Qualifiers (1) Cellulitis: Site of cellulitis: extremity Site of cellulitis of extremity: toe Laterality: left Qualified Codes: L03.032 - Cellulitis of left toe (2) Diabetic foot ulcers: Diabetic foot ulcer location: midfoot Diabetes mellitus type: type 2 Latera lity: right Non-pressure ulcer stage: with necrosis of muscle Qualified Codes: E11.621 - Type 2 diabetes mellitus with foot ulcer; L97.413 - 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
[2018-09-29] MEDS: SIMVASTATIN 40 MG TAB PO SCH (20:16)
[2018-09-29] MEDS: POTASSIUM CHL 20 MEQ TABCR PO SCH (20:17)
[2018-09-29] MEDS: TERAZOSIN HCL 1 MG CAP PO SCH (20:17)
[2018-09-29 20:56] VITALS: BP 132/62
[2018-09-29 23:00] VITALS: BP 126/62
[2018-09-30] VITALS (11 sets, daily range): BP systolic 118–170; BP diastolic 56–88
[2018-09-30 05:55] LABS: PLATELET COUNT, AUTOMATED 136 K/uL (150-450)
--- NOTE | 2018-09-30 07:18 | General Surgery Progress Note ---
Subjective Progress Notes Subjective No complaints this morning. Physical Exam Vital Signs Date Time Temp Pulse Resp B/P (MAP) Pulse Ox O2 Delivery O2 Flow Rate FiO2 09/30/18 00:15 87 09/29/18 23:05 Room Air 09/29/18 23:00 97.9 74 20 126/62 (83) 09/29/18 03:48 0.5 Intake and Output 09/30/18 07:00 Intake Total 1777 ml Output Total 1285 ml Balance 492 ml Intake Oral 1777 ml Output Urine Total 1285 ml # Voids 5 # Bowel Movements 1 General Appearance: Alert, Awake, No Acute Distress, Afebrile Extremities: Other (Feet are dressed and there are compression hose on both low er legs, I did not take these down this morning.) Result Diagram: 09/30/18 0540 09/30/18 0540 Monitor Interpretation: Normal Sinus Rhythm Assessment and Plan Problems: (1) Diabetic foot ulcers Status: Acute Assessment & Plan: 09/28/18: He is admitted by Dr. Gustafson who is managing his comorbidities. Certainly with a full thickness ulcer and exposed bone with evidence of osteomyelitis in the bone at the base of the ulcer on MRI, the recommendation would be amputation of his 2nd toe on his left foot. We will perform a tennis racquet incision around the toe with extension on the dorsum of his foot over the 2nd metatarsal bone for adequate debridement and trimming back enough bone to facilitate closure which may include a portion of the 2nd distal metatarsal bone. It would be important to get enough soft tissue to cover the bony structures. He is certainly at risk for wound infection and wound breakdown and so it would be nice to trim the bone back far enough that if the skin doesn 't heal very well there is enough underlying soft tissue covering the bone to avoid full wound dehiscence requiring further debridement and closure potentially a higher level. I have explained this to him in detail and he seems agreeable with this plan. I will have to look at the OR schedule and schedule this for the next day or 2. 09/29/18: Doing well. Will elevate both legs and apply MELONIE wraps to both legs to help decrease edema in legs. Will plan on left 2nd toe amputation through metatarsal bone tomorrow evening after edema further improves. Plan explained to patient and he's agreeable with it. 09/30/18: Doing well. Will plan on left 2nd toe amputation this evening. I have explained the surgery with the patient along with the alternatives, risks, and expected recovery. He indicates his understanding of this discussion and he wishes to proceed with this plan. Anynox held this morning and pt made NPO after 0900. (2) Osteomyelitis Status: Acute Condition Stable. Time Spent: < 30 min Exam Sepsis Risk: No Definite Risk Problem Qualifiers (1) Diabetic foot ulcers: Diabetic foot ulcer location: midfoot Diabetes mellitus type: type 2 Laterality: right Non-pressure ulcer stage: with necrosis of muscle Qualified Codes: E11.621 - Type 2 diabetes mellitus with foot ulcer; L97.413 - Non-pressure chronic ulcer of right heel and midfoot with necrosis of muscle (2) Osteomyelitis: Osteomyelitis type: other chronic Osteomyelitis location: foot Laterality: left Qualified Codes: M86.672 - Other chronic osteomyelitis, left ankle and foot MIKE NEGRETE MD Sep 30, 2018 07:18
[2018-09-30] MEDS: ASPIRIN 81 MG ENTERIC COATED PO SCH (08:16)
[2018-09-30] MEDS: FUROSEMIDE 40 MG/4 ML VIAL IVP SCH (08:57)
[2018-09-30] MEDS: CARVEDILOL 25 MG TABLET PO SCH ×2 (08:58→20:49)
[2018-09-30] MEDS: POTASSIUM CHL 20 MEQ TABCR PO SCH ×2 (08:58→20:48)
[2018-09-30] MEDS: PANTOPRAZOLE SOD 40 MG TABEC PO SCH (08:58)
[2018-09-30] MEDS: GLIMEPIRIDE 2 MG TAB PO SCH (08:58)
[2018-09-30] MEDS: ENALAPRIL MALEATE 10 MG TAB PO SCH ×3 (08:58→20:48)
[2018-09-30] MEDS ORDERED: KCL (*) 20 MEQ/100 ML PREMIX 100 ML IV ONE ×2 (09:00→12:00)
[2018-09-30] MEDS: LEVOFLOXACIN/D5W*500 MG/100 ML 100 ML IVPB SCH (10:15)
[2018-09-30] MEDS ORDERED: MAGNESIUM SUL* 2 GM/50 ML IVPB 50 ML IVPB ONE (11:00)
[2018-09-30] MEDS ORDERED: NORMOSOL R SOLN(*) 1000 ML BAG 1,000 ML IV PRN (14:25)
[2018-09-30] MEDS ORDERED: FAMOTIDINE(*) 20MG/50ML PREMIX 50 ML IVPB ONE (14:25)
--- NOTE | 2018-09-30 14:33 | Hospitalist Progress Note ---
Subjective Progress Notes Subjective Gen. condition essentially unchanged potassium is low today and magnesium is low plan to supplement it Awaiting surgery later on today Physical Exam Vital Signs Date Time Temp Pulse Resp B/P (MAP) Pulse Ox O2 Delivery O2 Flow Rate FiO2 09/30/18 12:21 91 09/30/18 11:20 97.5 70 18 135/64 (87) Room Air 09/30/18 07:45 0.5 Intake and Output 09/30/18 06:59 Intake Total 2277 ml Output Total 1285 ml Balance 992 ml Intake Oral 1777 ml IV Total 500 ml Output Urine Total 1285 ml # Voids 5 # Bowel Movements 1 General Appearance: Alert, Awake, No Acute Distress Neuro: No Gross deficits Eyes: PERRLA Neck: No Masses Cardiovascular: Normal Rhythm & Peripheral Pulses, Regular Rate and Rhythm, Other (1-2+ edema both lower extremities) Respiratory: No Respiratory Distress, Clear to Auscultation Psych: Alert & Oriented X3, Appropriate Mood & Affect Result Diagram: 09/30/18 0540 09/30/18 0540 Monitor Interpretation: Normal Sinus Rhythm Assessment and Plan Problems: (1) Hypomagnesemia Status: Acute Assessment & Plan: Flaco is low at 1.3 plan is to give him IV magnesium today likely related to diuretic use (2) Hypokalemia Status: Chronic Assessment & Plan: Potassium is low at 3.2 and is currently on oral potassium supplement and I plan to give him 40 mg of IV potassium and will recheck labs in the afternoon (3) Osteomyelitis of ankle or foot, right, acute Status: Acute Assessment & Plan: Patient has osteomyelitis of the left 2nd toe along with stage IV ulcer on the dorsal aspect of the proximal phalanx he has been treated with antibiotics in the form of Levaquin to cover for Pseudomonas which was going from his wound earlier he originally had an appointment to see or toe on 10/01/18 however I expect that he needs amputation of the 2nd toe and will ask for Dr. Guillen to evaluate and perform amputation of the 2nd toe if indicated he has history of peripheral neuropathy and NIDDM with excellent control of blood glucose in the past labs from today has shown normal CBC chemistry and sedimentation rate and CRP slightly elevated at 0.7 Also has a ulcer on his right foot dorsal aspect which may be accompanied by cellulitis without any osteomyelitis 09/29/18 patient has been seen by Dr. Guillen and is going to have amputation of the left 2nd toe and will continue with Levaquin for now 09/30/18 relating to have surgery done later on today no change otherwise (4) Altered mental state Status: Acute Assessment & Plan: I think altered mental state is related to combination of factors including underlying Osteomyelitis/cellulitis. He does not appear to be dehydrated kidney functions are normal chest x-ray was unremarkable about one week ago I do plan to do a CT head patient also has history of alcohol consumption at home he is unable to tell me how much he was drinking he lives alone 09/29/18 mental status is improved CT head is negative (5) Cellulitis Status: Chronic Assessment & Plan: The patient may have cellulitis of the left 2nd toe and dorsum of the right foot and has been placed on Levaquin to cover for Pseudomonas will monitor his labs 09/29/18 blood cultures are negative so far will continue with Levaquin (6) Diabetic foot ulcers Status: Acute (7) Diabetes mellitus, type 2 Status: Chronic Assessment & Plan: Diabetes otherwise appears to be under good control and recent hemoglobin A1c was 5.9 was on glimepiride 2 mg every day which is on hold for now will continue to monitor his blood glucose in the hospital 09/29/18. Resume glimepiride 2 mg daily in the morning (8) Edema Status: Chronic Assessment & Plan: Patient has history of chronic edema of the lower extr emities without the diagnosis of congestive heart failure and has been on furosemide 20 mg at home along with hydrochlorothiazide but edema at least to have worsened significantly he is going to be started on IV furosemide today and we'll monitor his intake output and daily weight 09/29/18 edema has improved patient is wearing compression stockings with Luis Enrique wrap there is no evidence of congestive heart failure he is currently on furosemide 40 mg daily (9) Benign hypertension Status: Chronic Assessment & Plan: Blood pressure was elevated today he will continue with carvedilol and enalapril but I'm holding off on hydrochlorothiazide 09/29/18 blood pressure is fairly low this morning and the dose of enalapril has been reduced from 20 mg twice a day to 10 mg twice a day (10) COPD (chronic obstructive pulmonary disease) Status: Chronic Assessment & Plan: It is stable at this time Time Spent on Plan of Care: < 30 min Exam Sepsis Risk: No Definite Risk Problem Qualifiers (1) Cellulitis: Site of cellulitis: extremity Site of cellulitis of extremity: toe Laterality: left Qualified Codes: L03.032 - Cellulitis of left toe (2) Diabetic foot ulcers: Diabetic foot ulcer location: midfoot Diabetes mellitus type: type 2 Laterality: right Non-pressure ulcer stage: with necrosis of muscle Qualified Codes: E11.621 - Type 2 diabetes mellitus with foot ulcer; L97.413 - Non-pressure chronic ulcer of right heel and midfoot with necrosis of muscle (3) Diabetes mellitus, type 2: Diabetes mellitus long term care phlebotomist insulin use: without long term care phlebotomist use Diabetes mellitus complication status: with neurologic complications Diabetes mellitus complication detail: with polyneuropathy Qualified Codes: E11.42 - Type 2 diabetes mellitus with diabetic polyneuropathy (4) Edema: Edema type: localized Qualified Codes: R60.0 - Localized edema (5) 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
[2018-09-30] MEDS ORDERED: NEOMYCIN/POLYMYX/BACITR 30 GM TP ONE (18:26)
[2018-09-30] MEDS ORDERED: PROPOFOL EMUL(*) 10MG/ML 20 ML 20 ML ONE (18:51)
[2018-09-30] MEDS ORDERED: MIDAZOLAM 2 MG/2 ML VIAL ONE (18:51)
[2018-09-30] MEDS ORDERED: ROPIVACAINE 0.5% 20 ML VIAL ONE ×2 (18:51→19:02)
--- NOTE | 2018-09-30 19:41 | Post Operative Progress Note ---
Post Operative Progress Note Date: Sep 30, 2018 Time: 19:35 Surgeon: Mindy Dictation number: [id number] Anesthesia: LMA and regional/local anesthesia by Dr. Sam Pre-Op Diagnosis: left 2nd toe diabetic ulcer with osteomyelitis Post-Op Diagnosis: PARKER Findings: C/W dx Procedure(s): Left 2nd toe amputation through proximal portion of proximal phalanx Specimen Removed:(May be N/A): Left 2nd toe Complications: None Total Tourniquet Time: 5 minutes Fluids: See anesthesia record Estimated Blood Loss: Minimal Date OP Note Dictated: Sep 30, 2018 Time OP Note Dictated: 19:37 MIKE NEGRETE MD Sep 30, 2018 19:41
--- NOTE | 2018-09-30 20:34 | OPERATIVE REPORT 1 ---
EVENT DATE: September 30, 2018 SURGEON: Álvaro Guillen MD ANESTHESIOLOGIST: Maykel Sam MD ANESTHESIA: LMA as well as regional and local. LMA and regional provided by Dr. Sam, local provided by Dr. Guillen. PREOPERATIVE DIAGNOSIS Left second toe diabetic ulcer with underlying osteomyelitis. POSTOPERATIVE DIAGNOSIS Left second toe diabetic ulcer with underlying osteomyelitis. PROCEDURE PERFORMED Left second toe amputation through the proximal portion of the proximal phalanx. COMPLICATIONS None. CONDITION Stable. BLOOD LOSS Minimal. INDICATIONS This is an 83-year-old gentleman who was admitted to the hospital by his primary care provider, Dr. Gustafson, with a chronic left second toe dorsal ulcer with underlying osteomyelitis in the proximal phalanx. He consulted me, and after we controlled the cellulitis and edema, he was consented for a left second toe amputation, possible ray amputation. DESCRIPTION OF PROCEDURE The patient was brought to the operating room and placed supine on the operating table. After Dr. Sam had completed his regional blocks, LMA anesthesia was administered, and his left foot and ankle were prepped and draped in a sterile fashion. Timeout was completed, and I injected the skin around the base of the left second toe. I then used the Esmarch wrap and exsanguinated his left foot, and the tourniquet was inflated. I had previously marked the skin, and I made an incision in the second toe over the proximal phalanx proximal to the ulcer. I made this incision circumferentially and dissected sharply through the dermis and into the subcutaneous tissues all the way through all the soft tissues down to the bone. I then used the periosteal elevator to separate the soft tissue away from the proximal phalanx all the way to the proximal portion of the proximal phalanx and used the bone cutter to divide the bone at this level, and the toe was passed off the field. I then used a rongeur to debride the bone even further up to near the joint and to remove any sharp shards and create more space between the soft tissue coverage and the underlying bone. I irrigated and dried this wound. I closed the flexor and extensor tendons together with the 3- 0 Vicryl suture, and the soft tissues were closed with interrupted 3-0 Vicryl suture. The skin was closed with running 3-0 nylon sutures. Skin was cleaned and dried, and bacitracin antibiotic ointment was applied to the incision, followed by a sterile surgical dressing. His foot was wrapped in Kerlix and an Luis Enrique wrap. He was then awakened and LMA removed. He was transported to the recovery room in stable condition having tolerated the procedure without any apparent problems. VINCE
[2018-09-30] MEDS: SIMVASTATIN 40 MG TAB PO SCH (20:49)
[2018-09-30] MEDS: TERAZOSIN HCL 1 MG CAP PO SCH (20:49)
[2018-10-01] VITALS (10 sets, daily range): BP systolic 101–132; BP diastolic 44–69
--- NOTE | 2018-10-01 07:10 | General Surgery Progress Note ---
Subjective Progress Notes Subjective No complaints this morning, no pain. Physical Exam Vital Signs Date Time Temp Pulse Resp B/P (MAP) Pulse Ox O2 Delivery O2 Flow Rate FiO2 10/01/18 05:18 91 10/01/18 05:17 Room Air 10/01/18 03:00 98.5 57 18 123/56 (78) 0.5 Intake and Output 10/01/18 06:59 Intake Total 3352 ml Output Total 3275 ml Balance 77 ml Intake Oral 1002 ml IV Total 1350 ml Other 1000 ml Output Urine Total 3275 ml # Voids 9 General Appearance: Alert, Awake, No Acute Distress, Afebrile Extremities: Warm, Perfused, Other (Dressing is in place without any blood staining.) Result Diagram: 09/30/18 0540 09/30/18 1432 Monitor Interpretation: Normal Sinus Rhythm Assessment and Plan Problems: (1) Diabetic foot ulcers Status: Acute Assessment & Plan: 09/28/18: He is admitted by Dr. Gustafson who is managing his comorbidities. Certainly with a full thickness ulcer and exposed bone with evidence of osteomyelitis in the bone at the base of the ulcer on MRI, the rec ommendation would be amputation of his 2nd toe on his left foot. We will perform a tennis racquet incision around the toe with extension on the dorsum of his foot over the 2nd metatarsal bone for adequate debridement and trimming back enough bone to facilitate closure which may include a portion of the 2nd distal metatarsal bone. It would be important to get enough soft tissue to cover the bony structures. He is certainly at risk for wound infection and wound breakdown and so it would be nice to trim the bone back far enough that if the skin doesn't heal very well there is enough underlying soft tissue covering the bone to avoid full wound dehiscence requiring further debridement and closure potentially a higher level. I have explained this to him in detail and he seems agreeable with this plan. I will have to look at the OR schedule and schedule this for the next day or 2. 09/29/18: Doing well. Will elevate both legs and apply MELONIE wraps to both legs to help decrease edema in legs. Will plan on left 2nd toe amputation through metatarsal bone tomorrow evening after edema further improves. Plan explained to patient and he's agreeable with it. 09/30/18: Doing well. Will plan on left 2nd toe amputation this evening. I have explained the surgery with the patient along with the alternatives, risks, and expected recovery. He indicates his understanding of this discussion and he wishes to proceed with this plan. Shayy held this morning and pt made NPO after 0900. 10/01/18: POD#1 s/p left 2nd toe amputation through proximal phalanx. Doing well. Leave dressing in place today; will remove tomorrow. Keep legs elevated. Will reapply compression hose after dressing off tomorrow. (2) Osteomyelitis Status: Acute Condition Stable. Time Spent: < 30 min Exam Sepsis Risk: No Definite Risk Problem Qualifiers (1) Diabetic foot ulcers: Diabetic foot ulcer location: midfoot Diabetes mellitus type: type 2 Laterality: right Non-pressure ulcer stage: with necrosis of muscle Qualified Codes: E11.621 - Type 2 diabetes mellitus with foot ulcer; L97.413 - Non-pressure chronic ulcer of right heel and midfoot with necrosis of muscle (2) Osteomyelitis: Osteomyelitis type: other chronic Osteomyelitis location: foot Laterality: left Qualified Codes: M86.672 - Other chronic osteomyelitis, left ankle and foot MIKE NEGRETE MD Oct 01, 2018 07:10
[2018-10-01] MEDS: CARVEDILOL 25 MG TABLET PO SCH ×3 (09:00→21:04)
[2018-10-01] MEDS: ENALAPRIL MALEATE 10 MG TAB PO SCH ×3 (09:00→21:04)
[2018-10-01] MEDS: FUROSEMIDE 40 MG/4 ML VIAL IVP SCH ×2 (09:00→09:41)
[2018-10-01] MEDS: POTASSIUM CHL 20 MEQ TABCR PO SCH ×2 (09:39→21:04)
[2018-10-01] MEDS: LEVOFLOXACIN/D5W*500 MG/100 ML 100 ML IVPB SCH (09:40)
[2018-10-01] MEDS: GLIMEPIRIDE 2 MG TAB PO SCH (09:40)
[2018-10-01] MEDS: ASPIRIN 81 MG ENTERIC COATED PO SCH (09:40)
[2018-10-01] MEDS: PANTOPRAZOLE SOD 40 MG TABEC PO SCH (09:40)
[2018-10-01 11:43] LABS: PLATELET COUNT, AUTOMATED 161 K/uL (150-450)
--- NOTE | 2018-10-01 15:56 | Antimicrobial Stewardship ---
Antimicrobial Time Out Antimicrobial Stewardship MD Service: Other (Dr. Gustafson) Indications: Other (osteomyelitis of the left foot) Culture Results: No JEFFERY HERRERA Oct 01, 2018 15:56
--- NOTE | 2018-10-01 16:21 | Hospitalist Progress Note ---
Subjective Progress Notes Subjective he underwent amputation of left 2nd toe yesterday evening he is feeling well today without any complaints he denies any significant pain Blood pressure has been running low and some of the medications have been on hold Physical Exam Vital Signs Date Time Temp Pulse Resp B/P (MAP) Pulse Ox O2 Delivery O2 Flow Rate FiO2 10/01/18 12:16 97.4 62 18 113/47 (69) 93 Room Air 10/01/18 03:00 0.5 Intake and Output 10/01/18 07:00 Intake Total 3352 ml Output Total 3275 ml Balance 77 ml Intake Oral 1002 ml IV Total 1350 ml Other 1000 ml Output Urine Total 3275 ml # Voids 9 General Appearance: Alert, Awake, No Acute Distress, Afebrile Neuro: No Gross deficits Eyes: PERRLA Cardiovascular: Normal Rhythm & Peripheral Pulses, Other (one plus edema improving) Respiratory: No Respiratory Distress, Clear to Auscultation Psych: Alert & Oriented X3, Appropriate Mood & Affect Result Diagram: 10/01/18 1124 10/01/18 1124 Monitor Interpretation: Normal Sinus Rhythm Assessment and Plan Problems: (1) Hypomagnesemia Status: Acute Assessment & Plan: Mg is low at 1.3 plan is to give him IV magnesium today likely related to diuretic use 8 repeat magnesium yesterday was 1.8 (2) Hypokalemia Status: Chronic Assessment & Plan: 09/30/18 Potassium is low at 3.2 and is currently on oral potassium supplement and I plan to give him 40 mg of IV potassium and will recheck labs in the afternoon 10/01/18 potassium is 3.6 today we will continue with the present dose of potassium and switch Lasix to by mouth (3) Osteomyelitis of ankle or foot, right, acute Status: Acute Assessment & Plan: Patient has osteomyelitis of the left 2nd toe along with stage IV ulcer on the dorsal aspect of the proximal phalanx he has been treated with antibiotics in the form of Levaquin to cover for Pseudomonas which was going from his wound earlier he originally had an appointment to see or toe on 10/01/18 however I expect that he needs amputation of the 2nd toe and will ask for Dr. Guillen to evaluate and perform amputation of the 2nd toe if indicated he has history of peripheral neuropathy and NIDDM with excellent control of blood glucose in the past labs from today has shown normal CBC chemistry and sedimentation rate and CRP slightly elevated at 0.7 Also has a ulcer on his right foot dorsal aspect which may be accompanied by cellulitis without any osteomyelitis 09/29/18 patient has been seen by Dr. Guillen and is going to have amputation of the left 2nd toe and will continue with Levaquin for now 09/30/18 relating to have surgery done later on today no change otherwise 10/01/18 underwent amputation of the left 2nd toe yesterday is feeling very well without any complaints (4) Altered mental state Status: Acute Assessment & Plan: I think altered mental state is related to combination of factors including underlying Osteomyelitis/cellulitis. He does not appear to be dehydrated kidney functions are normal chest x-ray was unremarkable about one week ago I do plan to do a CT head patient also has history of alcohol consumption at home he is unable to tell me how much he was drinking he lives alone 09/29/18 mental status is improved CT head is negative 10/01/18 mental status appears to be back to baseline (5) Cellulitis Status: Chronic Assessment & Plan: The patient may have cellulitis of the left 2nd toe and dorsum of the right foot and has been placed on Levaquin to cover for Pseudomonas will monitor his labs 09/29/18 blood cultures are negative so far will continue with Levaquin planned to switch Levaquin to by mouth for another 3 days and then we can discontinue (6) Diabetes mellitus, type 2 Status: Chronic Assessment & Plan: Diabetes otherwise appears to be under good control and recent hemoglobin A1c was 5.9 was on glimepiride 2 mg every day which is on hold for now will continue to monitor his blood glucose in the hospital 09/29/18. Resume glimepiride 2 mg daily in the morning 10/01/18 blood sugars have been fluctuating. We will continue to monitor (7) Edema Status: Chronic Assessment & Plan: Patient has history of chronic edema of the lower extremities without the diagnosis of congestive heart failure and has been on furosemide 20 mg at home along with hydrochlorothiazide but edema at least to have worsened significantly he is going to be started on IV furosemide today and we'll monitor his intake output and daily weight 09/29/18 edema has improved patient is wearing compression stockings with Luis Enrique wrap there is no evidence of congestive heart failure he is currently on furosemide 40 mg daily 10/01/18 edema appears to be better (8) Benign hypertension Status: Chronic Assessment & Plan: Blood pressure was elevated today he will continue with carvedilol and enalapril but I'm holding off on hydrochlorothiazide 09/29/18 blood pressure is fairly low this morning and the dose of enalapril has been reduced from 20 mg twice a day to 10 mg twice a day 10/01/18 blood pressure has been running low will adjust the medications (9) COPD (chronic obstructive pulmonary disease) Status: Chronic Assessment & Plan: It is stable at this time Time Spent on Plan of Care: < 30 min Exam Sepsis Risk: No Definite Risk Problem Qualifiers (1) Cellulitis: Site of cellulitis: extremity Site of cellulitis of extremity: toe Laterality: left Qualified Codes: L03.032 - Cellulitis of left toe (2) Diabetes mellitus, type 2: 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
[2018-10-01] MEDS: SIMVASTATIN 40 MG TAB PO SCH (21:04)
[2018-10-01] MEDS: TERAZOSIN HCL 1 MG CAP PO SCH (21:05)
[2018-10-02 05:45] VITALS: BP 110/61
--- NOTE | 2018-10-02 07:28 | General Surgery Progress Note ---
Subjective Progress Notes Subjective No complaints this morning. No pain. Physical Exam Vital Signs Date Time Temp Pulse Resp B/P (MAP) Pulse Ox O2 Delivery O2 Flow Rate FiO2 10/02/18 05:45 98.2 68 16 110/61 (77) 89 Room Air 10/01/18 03:00 0.5 Intake and Output 10/02/18 07:00 Intake Total 937 ml Output Total 625 ml Balance 312 ml Intake Oral 837 ml IV Total 100 ml Output Urine Total 625 ml # Voids 6 General Appearance: Alert, Awake, No Acute Distress, Afebrile Extremities: Other (Dressings removed. amputation site is ecchymotic and edematous with little bloody drainage. Appears perfused. Foot is warm with good capillary refill.) Result Diagram: 10/01/18 1124 10/01/18 1124 Monitor Interpretation: Normal Sinus Rhythm Assessment and Plan Problems: (1) Diabetic foot ulcers Status: Acute Assessment & Plan: 09/28/18: He is admitted by Dr. Gustafson who is managing his comorbidities. Certainly with a full thickness ulcer and exposed bone with evidence of osteomyelitis in the bone at the base of the ulcer on MRI, the recommendation would be amputation of his 2nd toe on his left foot. We will perform a tennis racquet incision around the toe with extension on the dorsum of his foot over the 2nd metatarsal bone for adequate debridement and trimming back enough bone to facilitate closure which may include a portion of the 2nd distal metatarsal bone. It would be important to get enough soft tissue to cover the bony structures. He is certainly at risk for wound infection and wound breakdown and so it would be nice to trim the bone back far enough that if the skin doesn't heal very well there is enough underlying soft tissue covering the bone to avoid full wound dehiscence requiring further debridement and closure potentially a higher level. I have explained this to him in detail and he seems agreeable with this plan. I will have to look at the OR schedule and schedule this for the next day or 2. 09/29/18: Doing well. Will elevate both legs and apply MELONIE wraps to both legs to help decrease edema in legs. Will plan on left 2nd toe amputation through metatarsal bone tomorrow evening after edema further improves. Plan explained to patient and he's agreeable with it. 09/30/18: Doing well. Will plan on left 2nd toe amputation this evening. I have explained the surgery with the patient along with the alternatives, risks, and expected recovery. He indicates his understanding of this discussion and he wishes to proceed with this plan. Ricardax held this morning and pt made NPO after 0900. 10/01/18: POD#1 s/p left 2nd toe amputation through proximal phalanx. Doing well. Leave dressing in place today; will remove tomorrow. Keep legs elevated. Will reapply compression hose after dressing off tomorrow. 10/02/18: POD#2. Doing well. Dressing removed, operative site looks good. He can go home today. Ambulate as tolerated. He can cover the operative site with a band-aid and change this daily. He can leave it open to air when no further drainage. He can shower as desired (with the amputation site open to air) but he shouldn't immerse his left foot until completely healed. I recommend continuing antibiotics for 5 more days. I will see him back in my office on 10/14/18, at 4:15pm. (2) Osteomyelitis Status: Acute Condition Stable. Time Spent: < 30 min Exam Sepsis Risk: No Definite Risk Problem Qualifiers (1) Diabetic foot ulcers: Diabetic foot ulcer location: midfoot Diabetes mellitus type: type 2 Laterality: right Non-pressure ulcer stage: with necrosis of muscle Qualified Codes: E11.621 - Type 2 diabetes mellitus with foot ulcer; L97.413 - Non-pressure chronic ulcer of right heel and midfoot with necrosis of muscle (2) Osteomyelitis: Osteomyelitis type: other chronic Osteomyelitis location: foot Laterality: left Qualified Codes: M86.672 - Other chronic osteomyelitis, left ankle and foot MIKE NEGRETE MD Oct 02, 2018 07:28
[2018-10-02 07:33] VITALS: BP 136/60
[2018-10-02] MEDS: CARVEDILOL 25 MG TABLET PO SCH (08:32)
[2018-10-02] MEDS: ENALAPRIL MALEATE 10 MG TAB PO SCH (08:32)
[2018-10-02] MEDS: GLIMEPIRIDE 2 MG TAB PO SCH (08:33)
[2018-10-02] MEDS: ASPIRIN 81 MG ENTERIC COATED PO SCH (08:33)
[2018-10-02] MEDS: POTASSIUM CHL 20 MEQ TABCR PO SCH (08:33)
[2018-10-02] MEDS: PANTOPRAZOLE SOD 40 MG TABEC PO SCH (08:33)
[2018-10-02] MEDS ORDERED: FUROSEMIDE 40 MG TAB PO SCH (09:00)
[2018-10-02] MEDS: ENOXAPARIN 40 MG/0.4ML SYR SC SCH (09:36)
[2018-10-02] MEDS ORDERED: LEVOFLOXACIN 500 MG TAB PO SCH (10:00)
[2018-10-02] MEDS ORDERED: FURO-47 PO (12:25)
[2018-10-02] MEDS ORDERED: ENAL-18 PO (12:25)
[2018-10-02] MEDS ORDERED: PER PO ×2 (12:25→12:47)
[2018-10-02] MEDS ORDERED: LEVO-85 PO (12:25)
--- NOTE | 2018-10-02 12:29 | Hospitalist Depart ---
Discharge Summary Reason for Hosp/Final Diag: (1) Osteomyelitis of ankle or foot, right, acute Status: Acute Hospital Course & Plan: Patient was admitted to the hospital on 09/29/18 because of altered mental status significant edema of the lower extremities and osteomyelitis of the left 2nd toe poorly responding to antibiotics patient was started on IV fluids and was placed on Levaquin. Patient was seen by Dr. Caicedo who performed amputation of the left 2nd toe on 09/29/18 the surgery went well patient has been feeling well he denies any pain during patient's stay in the hospital he also developed hypokalemia and hypomagnesemia which has been corrected patient is ready to be discharged home he already has an appointment to see Dr. Caicedo outpatient the plan to continue with Levaquin for 5 more days patient will need home health home OT and PT and home wound care (2) Diabetic foot ulcers Status: Acute Hospital Course & Plan: Patient has had diabetic foot ulcer on the dorsum of his right foot which has healed regarding stage IV ulcer of left 2nd toe along with ostial myelitis he has undergone amputation of the left 2nd toe and plan is to continue with antibiotics for 5 more days (3) Altered mental state Status: Acute Hospital Course & Plan: I think altered mental state is related to combination of factors including underlying Osteomyelitis/cellulitis. He does not appear to be dehydrated kidney functions are normal chest x-ray was unremarkable about one week ago I do plan to do a CT head patient also has history of alcohol consumption at home he is unable to tell me how much he was drinking he lives alone 09/29/18 mental status is improved CT head is negative 10/01/18 mental status appears to be back to baseline 10/02/18I think mental status is back to baseline (4) Hypokalemia Status: Chronic Hospital Course & Plan: 09/30/18 Potassium is low at 3.2 and is currently on oral potassium supplement and I plan to give him 40 mg of IV potassium and will recheck labs in the afternoon 10/01/18 potassium is 3.6 today we will continue with the present dose of potassium and switch Lasix to by mouth 12/02/17 last labs have shown potassium of 3.6 will continue with 20 mEq twice a day (5) Hypomagnesemia Status: Acute Hospital Course & Plan: Mg is low at 1.3 plan is to give him IV magnesium today likely related to diuretic use 8 repeat magnesium yesterday was 1.8 Will repeat another lab for magnesium outpatient in 5 days (6) Diabetes mellitus, type 2 Status: Chronic Hospital Course & Plan: Diabetes otherwise appears to be under good control and recent hemoglobin A1c was 5.9 was on glimepiride 2 mg every day which is on hold for now will continue to monitor his blood glucose in the hospital 09/29/18. Resume glimepiride 2 mg daily in the morning 10/01/18 blood sugars have been fluctuating. We will continue to monitor (7) Edema Status: Chronic Hospital Course & Plan: Patient has history of chronic edema of the lower extremities without the diagnosis of congestive heart failure and has been on furosemide 20 mg at home along with hydrochlorothiazide but edema at least to orozco ve worsened significantly he is going to be started on IV furosemide today and we'll monitor his intake output and daily weight 09/29/18 edema has improved patient is wearing compression stockings with Luis Enrique wrap there is no evidence of congestive heart failure he is currently on furosemide 40 mg daily 10/01/18 edema appears to be better He'll go home on low-salt diet and furosemide 40 mg daily he will continue to monitor his intake and output and weigh himself daily his edema has completely resolved at this time (8) Benign hypertension Status: Chronic Hospital Course & Plan: Blood pressure was elevated today he will continue with carvedilol and enalapril but I'm holding off on hydrochlorothiazide 09/29/18 blood pressure is fairly low this morning and the dose of enalapril has been reduced from 20 mg twice a day to 10 mg twice a day 10/01/18 blood pressure has been running low will adjust the blood pressure appears to be much better during his stay in the hospital he will be discharged on furosemide 40 mg daily, enalapril 10 mg twice a day and carvedilol 25 mg twice a day. Hydrochlorothiazide discontinued (9) COPD (chronic obstructive pulmonary disease) Status: Chronic Hospital Course & Plan: It is stable at this time Departure Weight (Pounds): 152 Weight (Ounces): 6.0 Result Diagram: 10/01/18 1124 10/01/18 1124 [facility] *LIVE* [address] [place] [address] DINORA DAVIS M.D., DIRECTOR OF LABORATORY SERVICES BHAKTI TERRAZAS M.D., PATHOLOGIST RUN DATE: 09/18/18 Specimen Inquiry Report PAGE 1 RUN TIME: 1059 PATIENT: JW VALDEZ ACCT: [id number] LOC: LAB U: [id number] AGE/SX: 82/M ROOM: RE09/07/[address]: ZINA MARINO MD : 1935 BED: DIS: STATUS: REG CLI TLOC: SPEC #: [id number] RAUL: 09/07/18 STATUS: COMP REQ #: [id number] RECD: 09/07/18-[address]: ZINA MARINO MD SOURCE: FOOT ENTR: 09/07/18-1045 [facility] DR: SPDCLARIBEL: LEFT ORDERED: CULT WOUND A/A COMMENTS: Comments: will be obtained in PT wound care Procedure Result Verified WOUNDCULTURE Final 09/18/18-1059 Organism 1 PSEUDOMONAS AERUGINOSA 1+ GROWTH Organism 2 STREP AGALACTIAE GROUP B 1+ GROWTH RARE NORMAL SKIN NGA ALSO PRESENT CONFIRMED CARBAPENEM RESISTANT BY [facility] 09/17/[address] AGALAC M.I.C. RX M.I.C. RX --------- --- --------- --- AMPICILLIN <=0.25 S CEFOTAXIME <=0.12 S CEFTAZIDIME 4 S CEFTRIAXONE <=0.12 S CEFEPIME 2 S CIPROFLOXACIN <=0.25 S CLINDAMYCIN <=0.25 S ERYTHROMYCIN <=0.12 S GENTAMICIN <=1 S IMIPENEM 8 I LEVOFLOXACIN 0.5 S 1 S LINEZOLID <=2 S BENZYLPENICILLIN <=0.06 S PIPERACILLIN/TAZOBACTAM 8 S TOBRAMYCIN <=1 S VANCOMYCIN 0.5 S ANAEROBE CULTURE Final 09/11/18-1018 Organism 1 NIKIA TAYLORA 1+ GROWTH -- END OF REPORT Imaging FACILITY: [facility] [place] PATIENT NAME: Jw Valdez : 1935 MR: [id number] V: [id number] EXAM DATE: ORDERING PHYSICIAN: ZINA MARINO TECHNOLOGIST: Location: [facility] [place] Patient: Jw Valdez : 1935 Visit/Account:[id number] Date of Sevice: 09/17/2018 MRI LEFT FOOT W W/O CONTRAST COMPARISON: Left foot radiographs September 07, 2018. HISTORY: diabetic ulcer r/o osteomylitis left 2nd toe. TECHNIQUE: Pre and postcontrast multiplanar MRI of the forefoot and visualized midfoot utilizing T1 weighted and fluid sensitive sequences. CONTRAST: 15 mL gadobenate was given intravenously FINDINGS: First through fifth toe hammertoe deformities. Fifth toe hammertoe deformity is suboptimally assessed because the sagittal images only traverse the first through fourth MTP joints. Mild medial and lateral marginal spurring at the first MTP joint consistent with mild osteoarthritis. There is moderate bone marrow edema throughout the second toe proximal phalanx, with associated dorsal cortical loss at the head/neck junction consistent with osteomyelitis. Normal marrow signal in the middle and distal phalanx of the second toe. Elsewhere no additional sites of osteomyelitis or bone marrow edema are seen. There is normal alignment of the hallux/sesamoid complex, without sesamoid avascular necrosis, fracture or sesamoiditis. The plantar plates, flexor and extensor tendons are intact. There is no intermetatarsal bursitis or evidence of Crump's neuroma. There is diffuse enhancing soft tissue edema overlying the dorsal forefoot and in the second toe, consistent with cellulitis, without evidence of a soft tissue abscess. IMPRESSION: 1. Findings consistent with osteomyelitis of the dorsal head/neck junction of the second toe proximal phalanx, left foot. 2. Enhancing soft tissue edema in the dorsal forefoot and throughout the second toe, consistent with cellulitis. No evidence of soft tissue abscess. Report Dictated By: Shlomo Hinton at 09/17/2018 4:59 PM FACILITY: [facility] [place] PATIENT NAME: Jw Vadlez : 1935 MR: [id number] V: [id number] EXAM DATE: ORDERING PHYSICIAN: ZINA MARINO TECHNOLOGIST: Location: [facility] [place] Patient: Jw Valdez : 1935 Visit/Account:[id number] Date of : 09/28/2018 Study: CT scan of the brain without intravenous contrast. Indication:Altered metal status Comparison study: October 22, 2017 Technique: Multiple axial images were obtained through the brain without the use of intravenous contrast. One of the following dose optimization techniques was utilized in the performance of this exam: Automated exposure control; adjustment of the mA and/or kV according to the patient's size; or use of an iterative reconstruction technique. Specific details can be referenced in the facility's radiology CT exam operational policy. The examination demonstrates no evidence of acute intracranial hemorrhage. There is no evidence of extra-axial collection or hydrocephalus. There is no abnormal density identified within the brain parenchyma. There is mild atrophy present. This is unchanged. There is no evidence of disruption of the peripheral estevez-white junction. The bony structures are unremarkable. IMPRESSION: No acute intracranial abnormality identified. Specifically, there is no evidence of acute intracranial hemorrhage. Report Dictated By: Kurtis Landon at 09/28/2018 3:29 PM Report E-Signed By: Kurtis Landon at 09/28/2018 3:32 PM WSN:[id number] Condition: Improved PT/OT Follow Up For: PT For Strengthening, OT For ADL's Home Health RN Follow Up For: Nursing Assessment, Wound Detention Health [employer]UPAL PROGRAMMER Follow Up For: ADL Assistance Treatments: Dressing Change, Wound Care Time Spent: > 30 min Discharge Instructions Home Meds Active Scripts Oxycodone/Acetaminophen (OXYCODONE/ACETAMINOPHEN 5MG/325 MG) 5 Mg/325 Mg Tab, 1 TAB PO Q6H PRN for PAIN, #30 TAB Prov:ZINA MARINO MD 10/02/18 Simvastatin (SIMVASTATIN) 40 Mg Tablet, 1 MG PO QHS, #90 TAB 3 Refills Prov:ZINA MARINO MD 06/03/18 Terazosin Hcl (TERAZOSIN HCL) 5 Mg Capsule, 5 MG PO QHS, #90 CAPSULE 3 Refills Prov:ZINA MARINO MD 05/08/18 Omeprazole (OMEPRAZOLE) 20 Mg Capsule.dr, 1 CAP PO QDAY, #90 CAP 4 Refills Prov:ZINA MARINO MD 05/04/18 Enalapril Maleate (ENALAPRIL MALEATE) 20 Mg Tablet, 20 MG PO BID, #180 TAB 4 Refills Prov:ZINA MARINO MD 03/24/18 Carvedilol (CARVEDILOL) 25 Mg Tablet, 25 MG PO BID, #180 TAB 4 Refills Prov:ZINA MARINO MD 03/24/18 Furosemide (FUROSEMIDE) 20 Mg Tablet, 1 TAB PO QDAY, #90 TAB 4 Refills Prov:ZINA MARINO MD 03/24/18 Hydrochlorothiazide (HYDROCHLOROTHIAZIDE) 25 Mg Tablet, 1 TAB PO QDAY, #90 TAB 4 Refills Prov:ZINA MARINO MD 03/24/18 Potassium Chloride (POTASSIUM CHLORIDE) 20 Meq Tab.er.prt, 1 TAB PO BID, #180 TAB 4 Refills Prov:ZINA MARINO MD 03/24/18 Oxygen (OXYGEN) Inha, 2 L INH QDAY, #2 L Prov:ZINA MARINO MD 09/25/16 Reported Medications Glimepiride (GLIMEPIRIDE) 2 Mg Tablet, 2 MG PO QDAY 06/18/18 Aspirin (ASPIR 81) 81 Mg Tablet.dr, 1 TAB PO QDAY, TAB 07/25/15 Discontinued Reported Medications Amoxicillin/Pot Clav 875-125 Mg Tab (AUGMENTIN 875-125 TABLET) 1 Each Tablet, 1 TAB PO Q12H, TAB 09/20/18 Sulfamethoxazole/Trimethoprim (SULFAMETHOXAZOLE-TMP DS TABLET) 1 Each Tablet, 1 TAB PO Q12H 09/20/18 Mupirocin (MUPIROCIN) 5 Gm Powder, 5 GM MC 06/18/18 Multivitamin (DAILY VALUE) 1 Each Tablet, 1 TAB PO QDAY 07/25/15 Lutein (LUTEIN) 6 Mg Capsule, 1 CAP PO QDAY, CAPSULE 07/25/15 Saw [place] Fruit (SAW PALMETTO) 450 Mg Capsule, 1 CAP PO QDAY, CAPSULE 07/25/15 Calcium Carbonate (CALCIUM) 600 Mg Tablet, 2 TAB PO QDAY 07/25/15 Discontinued Scripts Levofloxacin 750 Mg Tab (LEVAQUIN 750 MG TAB) 750 Mg Tablet, 1 TAB PO DAILY, #7 TAB 0 Refills Prov:ZINA MARINO MD 09/18/18 Diet: Diabetic, 2 Gram Sodium (NA) Activity: With Walker Special Instructions: Venous Thromboembolism Antithrombotics Is Pt On Any Antithrombotics?: Yes [id number] Certification Face to Face Home Health Certification needs home health, PT OT and wound care Medical Necessity: Nursing, Rehab Date Face to Face Conducted: Oct 02, 2018 Problem Qualifiers (1) Diabetic foot ulcers: Diabetic foot ulcer location: midfoot Diabetes mellitus type: type 2 Laterality: right Non-pressure ulcer stage: with necrosis of muscle Qualified Codes: E11.621 - Type 2 diabetes mellitus with foot ulcer; L97.413 - Non-pressure chronic ulcer of right heel and midfoot with necrosis of muscle (2) Diabetes mellitus, type 2: Diabetes mellitus assembler bonding insulin use: without assembler bonding use Diabetes mellitus complication status: with neurologic complications Diabetes mellitus complication detail: with polyneuropathy Qualified Codes: E11.42 - Type 2 diabetes mellitus with diabetic polyneuropathy (3) Edema: Edema type: localized Qualified Codes: R60.0 - Localized edema (4) COPD (chronic obstructive pulmonary disease): COPD type: emphysema ZINA MARINO MD Oct 02, 2018 12:29
[2018-10-02 12:49] VITALS: BP 118/56
[2018-10-02] MEDS ORDERED: OXYC-373 PO (13:16)
== END 2018-10-02 14:22 | disposition home health service (06) | DRG 617 ==
LOC: MED 11:18
PROVIDERS: ADMIT Internal Medicine; ATTEND Internal Medicine
PROC: 0Y6S0Z1 Detachment at Left 2nd Toe, High, Open Approach (ICD-10-PCS; principal; 2018-09-30 17:00)
DX: E11.69 Type 2 diabetes mellitus with other specified complication (principal); L97.413 Non-pressure chronic ulcer of right heel and midfoot with necrosis of muscle; M86.672 Other chronic osteomyelitis, left ankle and foot; E11.621 Type 2 diabetes mellitus with foot ulcer; E11.42 Type 2 diabetes mellitus with diabetic polyneuropathy; J43.9 Emphysema, unspecified; E87.6 Hypokalemia; E83.42 Hypomagnesemia; I10 Essential (primary) hypertension; E78.5 Hyperlipidemia, unspecified; N40.0 Benign prostatic hyperplasia without lower urinary tract symptoms; R60.9 Edema, unspecified; Z79.84 Long term (current) use of oral hypoglycemic drugs
CPT/HCPCS: 36415; 36416; 70450; 82040; 82247; 82310; 82374; 82435; 82565; 82947; 82948; 83605; 83735; 83880; 84075; 84132; 84155; 84295; 84450; 84460; 84484; 84520; 85025; 85027; 85651; 86140; 87040; 88305; 93005; 97162; J1650; J1940; J1956; J2250; J2704; J2795; J3475; J3480; J3490; J7040; J7050; Q9967

== ENCOUNTER → 2018-10-06 | Outpatient (CLI) | payer MEDICARE, OTHER ==
[2018-09-28 13:00] VITALS: BMI 24.9
[~2018-10-06] MED LIST changes: +FURO-47 PO; +LEVO-85 PO; +OXYC-373 PO; +PER PO
[2018-10-06 16:36] LABS: PLATELET COUNT, AUTOMATED 203 K/uL (150-450)
== END ==
LOC: LAB 16:18
PROVIDERS: ATTEND Internal Medicine
DX: E11.621 Type 2 diabetes mellitus with foot ulcer (principal); L97.509 Non-pressure chronic ulcer of other part of unspecified foot with unspecified severity; M86.171 Other acute osteomyelitis, right ankle and foot; I10 Essential (primary) hypertension; J44.9 Chronic obstructive pulmonary disease, unspecified
CPT/HCPCS: 36415; 82040; 82247; 82310; 82374; 82435; 82565; 82947; 84075; 84132; 84155; 84295; 84450; 84460; 84520; 85025; 85651; 86140

== ENCOUNTER 2018-11-25 19:26 | Emergency (ER) | payer MEDICARE, OTHER ==
[2018-09-28 13:00] VITALS: Wt 71.7 kg
[~2018-11-25 19:26] MED LIST changes: -HYDR-385 PO
[2018-11-25] MEDS ORDERED: DEXTROSE 50% 50 ML SYR IVP ONE (19:40)
--- NOTE | 2018-11-25 19:45 | EKG ---
FACILITY: [facility] [place] PATIENT NAME: JW VALDEZ : [id number] MR: [id number] V: [id number] EXAM DATE: ORDERING PHYSICIAN: ROSA NAVAS TECHNOLOGIST: RADHA Test Reason : MS Blood Pressure : / mmHG Vent. Rate : 087 BPM Atrial Rate : 086 BPM P-R Int : 000 ms QRS Dur : 076 ms QT Int : 366 ms P-R-T Axes : 000 073 059 degrees QTc Int : 440 ms Sinus rhythm with 1st degree AV block Anterior infarct , age undetermined Abnormal ECG When compared with ECG of 28-SEP-2018 12:27, Anterior infarct is now present Confirmed by MIKE HODGSON ([id number]) on 11/26/2018 6:38:11 AM Referred By: Confirmed By:MIKE HODGSON
[2018-11-25 19:49] LABS: PLATELET COUNT, AUTOMATED 179 K/uL (150-450)
--- NOTE | 2018-11-25 20:00 | ER Report ---
History and Physical Time Seen By MD: 19:30 Hx. of Stated Complaint: PATIENT HAVING ALTERED MENTAL STATUS, PATIENTS BLOOD SUGAR WAS 21 AND 34, GOT 1MG OF GLUCAGON IN FIELD. HPI/ROS CHIEF COMPLAINT: Altered mental status HISTORY OF PRESENT ILLNESS: 83-year-old type II diabetic, insulin required brought in by EMS with altered mental status. Patient was noted to have a low glucose of 21. On EMSs arrival. They were unable to establish an IV, but gave glucagon 1 mg IM. On arrival to the ER. Patient is awake and responding but still somewhat altered. A repeat glucose is 58. A peripheral IV is established. The patient is given one half amp of dextrose 25 g IV. With significant improvement of his mental status. EMS reported at the scene that they thought there was some left-sided weakness on their initial stroke assessment. It seems to have resolved after his glucose was corrected. There is also a concern for possible alcohol ingestion noted by EMS. Patient appears to a fall in. He has an abrasion to his forehead. He is not complaining of any head or neck pain. REVIEW OF SYSTEMS: Respiratory: No cough, no dyspnea. Cardiovascular: No chest pain, no palpitations. Gastrointestinal: No vomiting, no abdominal pain. Musculoskeletal: No back pain. Allergies: Coded Allergies: No Known Drug Allergies (Unverified , 11/26/18) Home Meds Active Scripts Hydrocodone Bit/Acetaminophen (HYDROCODON-ACETAMINOPHEN 5-325) 1 Each Tablet, 1 EACH PO Q4-6H PRN for PAIN, #12 TAB Prov:PATSY EVANS OTR FLATBED DRIVER 11/26/18 Furosemide (FUROSEMIDE) 40 Mg Tablet, 40 MG PO QDAY, #30 TAB 6 Refills Prov:ZINA GUSTAFSON MD 10/02/18 Enalapril Maleate (ENALAPRIL MALEATE) 10 Mg Tablet, 10 MG PO BID, #60 TAB 6 Refills Prov:ZINA GUSTAFSON MD 10/02/18 Simvastatin (SIMVASTATIN) 40 Mg Tablet, 1 MG PO QHS, #90 TAB 3 Refills Prov:ZINA GUSTAFSON MD 06/03/18 Terazosin Hcl (TERAZOSIN HCL) 5 Mg Capsule, 5 MG PO QHS, #90 CAPSULE 3 Refills Prov:ZINA GUSTAFSON MD 05/08/18 Omeprazole (OMEPRAZOLE) 20 Mg Capsule., 1 CAP PO QDAY, #90 CAP 4 Refills Prov:ZINA GUSTAFSON MD 05/04/18 Carvedilol (CARVEDILOL) 25 Mg Tablet, 25 MG PO BID, #180 TAB 4 Refills Prov:ZINA GUSTAFSON MD 03/24/18 Potassium Chloride (POTASSIUM CHLORIDE) 20 Meq Tab.er.prt, 1 TAB PO BID, #180 TAB 4 Refills Prov:ZINA GUSTAFSON MD 03/24/18 Oxygen (OXYGEN) Inha, 2 L INH QDAY, #2 L Prov:ZINA GUSTAFSON MD 09/25/16 Reported Medications Glimepiride (GLIMEPIRIDE) 2 Mg Tablet, 2 MG PO QDAY 06/18/18 Aspirin (ASPIR 81) 81 Mg Tablet., 1 TAB PO QDAY, TAB 07/25/15 Discontinued Scripts Levofloxacin 500 Mg Tab (LEVAQUIN 500 MG TAB) 500 Mg Tablet, 500 MG PO QDAY@10, #5 TAB Prov:ZINA GUSTAFSON MD 10/02/18 Past Medical/Surgical History Information below is copied from recent internal medicine note from September 2018 This patient is a 82-year-old male who came in today for follow-up after recent hospital admission. Patient was admitted to the hospital on 09/29/18 because of altered mental status worsening edema of the lower extremities and nonhealing diabetic ulcer of left 2nd toe. MRI was consistent with osteomyelitis He did not respond to oral antibiotics at home patient was admitted to the hospital and was evaluated by Dr. 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 he has done well since then he does not complain of any pain and did not refill his oxycodone that was given to him at the time of discharge he is currently under home health care and home physical therapy is doing wound care and dressing changes patient does complain that he continues to have the sore on his buttocks which are causing discomfort patient is currently on Levaquin 500 mg by mouth daily and will finish tomorrow Patient also has chronic edema of the lower extremities which got worse recently however during his stay in the hospital with compression Luis Enrique wrap edema has improved significantly he is currently on furosemide 40 mg daily and plan is to recheck his labs And also had ulcer on the dorsum of his right foot which seemed to be healing well MRI did not show any osteomyelitis Medical history significant for NIDDM and is currently on low dose of glimepiride 2 mg daily he was not able to tolerate metformin in the past and also has history of diabetic neuropathy Past medical history significant for hypertension and is doing well with the present treatment just in the hospital blood pressure was low and hydrochlorothiazide was discontinued along with carvedilol and is currently on enalapril 10 mg twice a day Also has history of COPD he is to be using oxygen at home but not does not use it often Past Family Social History Reviewed Reviewed by: Dr. Zina Gustafson Reviewed: Past Medical Hx, Surgical Hx Past Medical History Cardiovascular: Reports hx of: hyperlipidemia hypertension Gastrointestinal: Reports hx of: GERD Genitourinary: Reports hx of: benign prostatic hypertro Endocrine: Reports hx of: diabetes type 2 Past Surgical History HEENT: Reports hx of: cataract extraction (both eyes) tonsillectomy Gastrointestinal: Reports hx of: hernia repair Reviewed Nurses Notes: Yes Old Medical Records Reviewed: Yes Hx Smoking: Yes Smoking Status: Former Smoker Hx Substance Use Disorder: No Hx Alcohol Use: Yes Constitutional Vital Sign - Last 24 Hours 11/25/18 11/25/18 11/25/18 11/25/18 19:30 19:41 20:00 20:11 Temp 97.9 Pulse 90 89 85 Resp 26 33 28 B/P (MAP) 196/99 176/111 (132) Pulse Ox 92 93 O2 Delivery Room Air 11/25/18 11/25/18 11/25/18 11/25/18 20:16 20:31 20:46 21:00 Pulse 84 100 91 Resp 28 23 22 B/P (MAP) 122/71 (88) Pulse Ox 93 90 11/25/18 21:01 Pulse 91 Resp 26 Pulse Ox 93 Physical Exam Vital signs stable, blood pressure grossly elevated, pulse ox normal, afebrile General Appearance: The patient is alert, has no immediate need for airway protection and no signs of toxicity. Palpation of the head and neck reveal no tenderness or trauma, except a small forehead bruise Eyes: Pupils equal and round no pallor or injection. ENT, Mouth: Mucous membranes are moist. No dental trauma. The TMs normal Respiratory: There are no retractions, lungs are clear to auscultation. No chest wall tenderness Cardiovascular: Regular rate and rhythm. Distant heart sounds Gastrointestinal: Abdomen is soft and non tender, no masses, bowel sounds normal. Neurological: Initial mental status was altered, garbled speech and difficulty responding secondary to suspected hypoglycemia. After his hypoglycemia is corrected with IV dextrose. Patient is alert and oriented 3. He is moving e xtremities 4. There is no unilateral weakness noted. Skin: Warm and dry, no rashes. Musculoskeletal: Neck is supple non tender. No lymphadenopathy, no meningismus Extremities are nontender, nonswollen and have full range of motion. No edema, no calf tenderness, no evidence of trauma DIFFERENTIAL DIAGNOSIS: After history and physical exam differential diagnosis was considered for altered mental status including but not limited to hypoglycemia, infectious process, electrolyte abnormality, head injury and intoxicants. Medical Decision Making Data Points Result Diagram: 11/25/18193811/25/181938 Laboratory Hematology Test 11/25/18 19:39 11/25/18 20:06 11/25/18 21:06 Red Blood Count 4.95 M/uL (4.00-5.60) Mean Corpuscular Volume 91.9 fL (80.0-96.0) Mean Corpuscular Hemoglobin 32.0 pg (26.0-33.0) Mean Corpuscular Hemoglobin Concent 34.8 g/dL (32.0-36.0) Red Cell Distribution Width 14.7 % (11.5-14.5) Mean Platelet Volume 7.6 fL (7.2-11.1) Neutrophils (%) (Auto) 83.9 % (39.4-72.5) Lymphocytes (%) (Auto) 12.6 % (17.6-49.6) Monocytes (%) (Auto) 2.7 % (4.1-12.4) Eosinophils (%) (Auto) 0.3 % (0.4-6.7) Basophils (%) (Auto) 0.5 % (0.3-1.4) Nucleated RBC Relative Count (auto) 0.0 /100WBC Neutrophils # (Auto) 5.0 K/uL (2.0-7.4) Lymphocytes # (Auto) 0.8 K/uL (1.3-3.6) Monocytes # (Auto) 0.2 K/uL (0.3-1.0) Eosinophils # (Auto) 0.0 K/uL (0.0-0.5) Basophils # (Auto) 0.0 K/uL (0.0-0.1) Nucleated RBC Absolute Count (auto) 0.00 K/uL Sodium Level 134 mmol/L (137-145) Potassium Level 3.7 mmol/L (3.5-5.0) Chloride Level 98 mmol/L (98-107) Carbon Dioxide Level 25 mmol/L (22-30) Blood Urea Nitrogen 10 mg/dl (9-21) Creatinine 0.60 mg/dl (0.66-1.25) Glomerular Filtration Rate Calc > 60.0 Random Glucose 53 mg/dl (75-110) Lactate 1.7 mmol/L (0.7-2.1) Calcium Level 9.5 mg/dl (8.4-10.2) Total Bilirubin 0.9 mg/dl (0.2-1.3) Aspartate Amino Transf (AST/SGOT) 47 U/L (0-35) Alanine Aminotransferase (ALT/SGPT) 24 U/L (0-56) Alkaline Phosphatase 81 U/L (0-126) Troponin I 0.015 ng/ml Total Protein 7.9 g/dl (6.3-8.2) Albumin 4.4 g/dl (3.5-5.0) Thyroid Stimulating Hormone (TSH) 0.73 uIU/ml (0.46-4.68) Serum Alcohol 10 mg/dl Urine Color Yellow Urine Clarity Clear Urine pH 5.0 pH (4.8-9.5) Urine Specific [place] 1.006 Urine Protein Negative mg/dL (NEGATIVE) Urine Glucose (UA) Negative mg/dL (NEGATIVE) Urine Ketones Negative mg/dL (NEGATIVE) Urine Blood Negative (NEGATIVE) Urine Nitrite Negative (NEGATIVE) Urine Bilirubin Negative (NEGATIVE) Urine Urobilinogen Negative mg/dL (0.2-1.9) Urine Leukocyte Esterase Negative (NEGATIVE) Urine RBC None /HPF (0-2/HPF) Urine WBC <1 /HPF (0-5/HPF) Urine Squamous Epithelial Cells Few /LPF (</=FEW) Urine Bacteria Negative /HPF (NONE-FEW) Urine Hyaline Casts Few /LPF (NONE-FEW) Urine Mucus None /HPF (NONE-FEW) Urine Opiates Screen Negative Urine Barbiturates Screen Negative Ur Tricyclic Antidepressants Screen Negative Urine Phencyclidine Screen Negative Urine Amphetamines Screen Negative Urine Benzodiazepines Screen Negative Urine Cocaine Screen Negative Urine Cannabinoids Screen Negative Whole Blood Glucose 101 mg/DL (75-110) Chemistry Test 11/25/18 19:39 11/25/18 20:06 11/25/18 21:06 White Blood Count 6.0 k/uL (4.5-11.0) Red Blood Count 4.95 M/uL (4.00-5.60) Hemoglobin 15.8 g/dL (14.0-18.0) Hematocrit 45.5 % (42.0-52.0) Mean Corpuscular Volume 91.9 fL (80.0-96.0) Mean Corpuscular Hemoglobin 32.0 pg (26.0-33.0) Mean Corpuscular Hemoglobin Concent 34.8 g/dL (32.0-36.0) Red Cell Distribution Width 14.7 % (11.5-14.5) Platelet Count 179 K/uL (150-450) Mean Platelet Volume 7.6 fL (7.2-11.1) Neutrophils (%) (Auto) 83.9 % (39.4-72.5) Lymphocytes (%) (Auto) 12.6 % (17.6-49.6) Monocytes (%) (Auto) 2.7 % (4.1-12.4) Eosinophils (%) (Auto) 0.3 % (0.4-6.7) Basophils (%) (Auto) 0.5 % (0.3-1.4) Nucleated RBC Relative Count (auto) 0.0 /100WBC Neutrophils # (Auto) 5.0 K/uL (2.0-7.4) Lymphocytes # (Auto) 0.8 K/uL (1.3-3.6) Monocytes # (Auto) 0.2 K/uL (0.3-1.0) Eosinophils # (Auto) 0.0 K/uL (0.0-0.5) Basophils # (Auto) 0.0 K/uL (0.0-0.1) Nucleated RBC Absolute Count (auto) 0.00 K/uL Glomerular Filtration Rate Calc > 60.0 Lactate 1.7 mmol/L (0.7-2.1) Calcium Level 9.5 mg/dl (8.4-10.2) Total Bilirubin 0.9 mg/dl (0.2-1.3) Aspartate Amino Transf (AST/SGOT) 47 U/L (0-35) Alanine Aminotransferase (ALT/SGPT) 24 U/L (0-56) Alkaline Phosphatase 81 U/L (0-126) Troponin I 0.015 ng/ml Total Protein 7.9 g/dl (6.3-8.2) Albumin 4.4 g/dl (3.5-5.0) Thyroid Stimulating Hormone (TSH) 0.73 uIU/ml (0.46-4.68) Serum Alcohol 10 mg/dl Urine Color Yellow Urine Clarity Clear Urine pH 5.0 pH (4.8-9.5) Urine Specific [place] 1.006 Urine Protein Negative mg/dL (NEGATIVE) Urine Glucose (UA) Negative mg/dL (NEGATIVE) Urine Ketones Negative mg/dL (NEGATIVE) Urine Blood Negative (NEGATIVE) Urine Nitrite Negative (NEGATIVE) Urine Bilirubin Negative (NEGATIVE) Urine Urobilinogen Negative mg/dL (0.2-1.9) Urine Leukocyte Esterase Negative (NEGATIVE) Urine RBC None /HPF (0-2/HPF) Urine WBC <1 /HPF (0-5/HPF) Urine Squamous Epithelial Cells Few /LPF (</=FEW) Urine Bacteria Negative /HPF (NONE-FEW) Urine Hyaline Casts Few /LPF (NONE-FEW) Urine Mucus None /HPF (NONE-FEW) Urine Opiates Screen Negative Urine Barbiturates Screen Negative Ur Tricyclic Antidepressants Screen Negative Urine Phencyclidine Screen Negative Urine Amphetamines Screen Negative Urine Benzodiazepines Screen Negative Urine Cocaine Screen Negative Urine Cannabinoids Screen Negative Whole Blood Glucose 101 mg/DL (75-110) Toxicology Test 11/25/18 19:39 11/25/18 20:06 Serum Alcohol 10 mg/dl Urine Opiates Screen Negative Urine Barbiturates Screen Negative Ur Tricyclic Antidepressants Screen Negative Urine Phencyclidine Screen Negative Urine Amphetamines Screen Negative Urine Benzodiazepines Screen Negative Urine Cocaine Screen Negative Urine Cannabinoids Screen Negative Urinalysis Test 11/25/18 20:06 Urine Color Yellow Urine Clarity Clear Urine pH 5.0 pH (4.8-9.5) Urine Specific [place] 1.006 Urine Protein Negative mg/dL (NEGATIVE) Urine Glucose (UA) Negative mg/dL (NEGATIVE) Urine Ketones Negative mg/dL (NEGATIVE) Urine Blood Negative (NEGATIVE) Urine Nitrite Negative (NEGATIVE) Urine Bilirubin Negative (NEGATIVE) Urine Urobilinogen Negative mg/dL (0.2-1.9) Urine Leukocyte Esterase Negative (NEGATIVE) Urine RBC None /HPF (0-2/HPF) Urine WBC <1 /HPF (0-5/HPF) Urine Squamous Epithelial Cells Few /LPF (</=FEW) Urine Bacteria Negative /HPF (NONE-FEW) Urine Hyaline Casts Few /LPF (NONE-FEW) Urine Mucus None /HPF (NONE-FEW) EKG/Imaging EKG Interpretation 12 lead EK Rhythm: normal sinus rhythm, rate of 87 bpm [place]: normal QRS: normal ST segments: normal, comparison to previous EKG dated 09/28/18, no significant morphologic change. There is significant baseline artifact Imaging X-ray: Single view portable chest x-ray was obtained. I viewed the images myself on the PACS system. My interpretation of the images is: No infiltrate, no effusion, normal mediastinum, comparison to previous chest x-ray dated 09/20/18, no significant change. The radiologist interpretation had no clinically significant variation from this interpretation. Results: CT scan of the head and cervical spine without contrast was obtained. The results of the study are no acute traumatic findings, see reports. The study was read by the radiologist. I viewed the images myself on the PACS system. ED Course/Re-evaluation Clinical Indication for ER IV: IV Access ED Course Patient was admitted to an examination room. H&P was done. The dental diagnoses was considered. On clinical examination. Patient came in with altered mental status as a potential stroke alert. He had left-sided weakness. EMS administered glucagon and patient was awake on arrival. His glucose was still slightly low. He was given one half amp of dextrose 50% in his mental status rapidly improved. He remained alert and responsive. He was given fed orally food and juice. Diagnostic studies were undertaken. There are bui on his head to suggest that he had fallen. A CT of the head and cervical spine was unremarkable. Remainder of his diagnostic studies were unremarkable. Patient was discharged home in the care of his son. He's advised to follow-up with primary care for further evaluation and close monitoring of his diabetes. Decision to Disposition Date: Nov 25, 2018 Decision to Disposition Time: 20:33 Depart Departure Latest Vital Signs Vital Signs Date Time Temp Pulse Resp B/P (MAP) Pulse Ox O2 Delivery O2 Flow Rate FiO2 11/25/18 21:01 91 26 93 11/25/18 21:00 122/71 (88) 11/25/18 19:30 97.9 Room Air Impression: Primary Impression: Hypoglycemia Additional Impressions: Altered mental status, unspecified Type II diabetes mellitus Condition: Improved Disposition: HOME OR SELF-CARE Referrals: ZINA GUSTAFSON MD (PCP) Patient Instructions: Hypoglycemia in a Person with Diabetes (ED) Additional Instructions: Eats small frequent regular meals and snacks Follow-up with your primary care either this week or early next week Problem Qualifiers Additional Impressions: Altered mental status, unspecified Altered mental status type: unspecified Qualified Codes: R41.82 - Altered mental status, unspecified Type II diabetes mellitus Diabetes mellitus terminal operator insulin use: without nursing home use Diabetes mellitus complication status: with neurologic complications Diabetes mellitus complication detail: with unspecified neuropathy Qualified Codes: E11.40 - Type 2 diabetes mellitus with diabetic neuropathy, unspecified ROSA NAVAS DO Nov 25, 2018 20:00
--- NOTE | 2018-11-25 20:17 | RADIOLOGY IMAGING REPORT ---
FACILITY: [facility] PATIENT NAME: Valerio Hays : 1935 MR: [id number] V: [id number] EXAM DATE: ORDERING PHYSICIAN: ROSA NAVAS TECHNOLOGIST: Location: [facility] [place] Patient: Valerio Hays : 1935 Visit/Account:[id number] Date of Sevice: 11/25/[address] scan without contrast COMPARISONS: Head CT scan without contrast dated September 28, 2018 ADDITIONAL PERTINENT HISTORY: Fall with altered mental status. TECHNIQUE: Multiple axial images were obtained from the skull base to the vertex without IV contrast . One of the following dose optimization techniques was utilized in the performance of this exam: Aut omated exposure control; adjustment of the mA and/or kV according to the patient's size; or use of an iterative reconstruction technique. Specific details can be referenced in the facility's radiology CT exam operational policy. FINDINGS: Midline shift: Negative Ventricles: Negative Brain parenchyma: Patchy hypoattenuation within the periventricular and subcortical white matter, no nspecific but likely representing small vessel ischemic change on a chronic basis. Extra-axial spaces: Mild cerebral atrophy. Otherwise negative Intracranial vasculature: Cavernous internal carotid artery calcifications. Otherwise negative Osseous structures: Negative Paranasal sinuses and mastoid air cells: Moderate mucosal thickening involving the right maxillary s inus. Otherwise negative Surrounding soft tissues and orbits: Negative IMPRESSION: 1. Age related changes as described above. 2. Mild underlying paranasal sinus disease. 3. No evidence of acute intracranial pathology. Report Dictated By: Андрей Ortiz MD at 11/25/2018 8:10 PM Report E-Signed By: Андрей Ortiz MD at 11/25/2018 8:13 PM WSN:[email or web address]
--- NOTE | 2018-11-25 20:24 | RADIOLOGY IMAGING REPORT ---
FACILITY: [facility] [place] PATIENT NAME: Valerio Hays : 1935 MR: [id number] V: [id number] EXAM DATE: ORDERING PHYSICIAN: ROSA NAVAS TECHNOLOGIST: Location: [facility] Patient: Valerio Hays : 1935 Visit/Account:[id number] Date of Sevice: 11/25/2018 CT VERTEBRA CERVICAL (NON CON) COMPARISONS: None. ADDITIONAL PERTINENT HISTORY: Fall with altered mental status TECHNIQUE: Multiple axial images were obtained from the skull base through the upper thoracic spine with coronal and sagittal reformatted images obtained without IV contrast. One of the following dose optimization techniques was utilized in the performance of this exam: Automated exposure control; adj ustment of the mA and/or kV according to the patient's size; or use of an iterative reconstruction t echnique. Specific details can be referenced in the facility's radiology CT exam operational policy. FINDINGS. Vertebral body heights and alignment: Negative. Vertebral bodies: Facet hypertrophic changes at multiple levels. Anteriorly directed osteophytes at multiple levels. No bony fractures. Disc spaces: None. Cranial cervical junction: Negative. Cervical thoracic junction: Negative. Surrounding soft tissues: Calcified atherosclerotic plaque involving both cervical internal carotid a rteries. Lung apices: Negative. IMPRESSION: 1. Spondylitic change involving the cervical spine. 2. No acute appearing bony abnormalities. Report Dictated By: Андрей Ortiz MD at 11/25/2018 8:17 PM Report E-Signed By: Андрей Ortiz MD at 11/25/2018 8:20 PM WSN:[id number]
--- NOTE | 2018-11-25 20:33 | RADIOLOGY IMAGING REPORT ---
FACILITY: [facility] [place] PATIENT NAME: Valerio Hays : 1935 MR: [id number] V: [id number] EXAM DATE: ORDERING PHYSICIAN: ROSA NAVAS TECHNOLOGIST: Location: [facility] - [place], [place] Patient: Valerio Hays : 1935 Visit/Account:[id number] Date of Sevice: 11/25/2018 EXAMINATION: Portable AP Chest HISTORY: AMS. Rule out infiltrate. COMPARISON: 09/20/2018. FINDINGS: Calcified granuloma in the mid right lung. No new focal consolidation. No pleural effusion or pneumot horax. Normal cardiomediastinal silhouette with normal heart size and pulmonary vascularity. Aortic calcific ation. No acute osseous findings in the chest. IMPRESSION: No evidence of acute cardiopulmonary disease. Report Dictated By: Сергей Hopkins MD at 11/25/2018 8:26 PM Report E-Signed By: Сергей Hopkins MD at 11/25/2018 8:29 PM WSN:[id number]
[2018-11-25 21:00] VITALS: BP 122/71
[2018-11-26] MEDS ORDERED: HYDR-385 PO (15:11)
== END 2018-11-25 21:16 | disposition home or self-care (01) ==
LOC: ER 19:35
DX: E11.649 Type 2 diabetes mellitus with hypoglycemia without coma (principal); E11.40 Type 2 diabetes mellitus with diabetic neuropathy, unspecified; Z79.4 Long term (current) use of insulin; I44.0 Atrioventricular block, first degree; R94.31 Abnormal electrocardiogram [ECG] [EKG]
CPT/HCPCS: 36416; 70450; 71045; 72125; 80305; 81001; 82948; 83605; 84443; 84484; 85025; 93005; 96374; 99284; G0480; 80320; 82040; 82247; 82310; 82374; 82435; 82565; 82947; 84075; 84132; 84155; 84295; 84450; 84460; 84520

== ENCOUNTER → 2018-11-25 | Outpatient (CLI) | payer MEDICARE, OTHER ==
[2018-09-28 13:00] VITALS: BMI 24.9
[~2018-11-25] MED LIST changes: +HYDR-385 PO
== END ==
LOC: AMB 19:11
PROVIDERS: ATTEND Nurse Practitioner
DX: R41.82 Altered mental status, unspecified (principal); R47.81 Slurred speech; S01.81XA Laceration without foreign body of other part of head, initial encounter; E11.9 Type 2 diabetes mellitus without complications
CPT/HCPCS: A0425; A0427

== ENCOUNTER 2018-11-26 12:08 | Emergency (ER) | payer MEDICARE, OTHER ==
[2018-09-28 13:00] VITALS: Wt 71.7 kg
--- NOTE | 2018-11-26 12:18 | ER Report ---
History and Physical Time Seen By MD: 12:18 HPI/ROS CHIEF COMPLAINT: Fall HISTORY OF PRESENT ILLNESS: 83-year-old male patient presents to emergency room with complaint of a fall. Patient states he was at home and fell. He states he spent approximate 45 minutes trying to get up. When he fell he did hit the left side of his face. He states that he's had no nausea or vomiting. Patient states he just felt very lightheaded and fell. Patient was seen yesterday in the emergency room for hypoglycemia. That was improved patient was discharged home. Patient denies having any fevers, chills, nausea, vomiting or diarrhea. Patient states he has been eating today. REVIEW OF SYSTEMS: Respiratory: No cough, no dyspnea. Cardiovascular: No chest pain, no palpitations. Gastrointestinal: No vomiting, no abdominal pain. Musculoskeletal: Patient does have some tenderness to the left posterior ribs. Allergies: Coded Allergies: No Known Drug Allergies (Unverified , 11/26/18) Home Meds Active Scripts Hydrocodone Bit/Acetaminophen (HYDROCODON-ACETAMINOPHEN 5-325) 1 Each Tablet, 1 EACH PO Q4-6H PRN for PAIN, #12 TAB Prov:PATSY EVANS 11/26/18 Furosemide (FUROSEMIDE) 40 Mg Tablet, 40 MG PO QDAY, #30 TAB 6 Refills Prov:ZINA MARINO MD 10/02/18 Enalapril Maleate (ENALAPRIL MALEATE) 10 Mg Tablet, 10 MG PO BID, #60 TAB 6 Refills Prov:ZINA MARINO MD 10/02/18 Simvastatin (SIMVASTATIN) 40 Mg Tablet, 1 MG PO QHS, #90 TAB 3 Refills Prov:ZINA MARINO MD 06/03/18 Terazosin Hcl (TERAZOSIN HCL) 5 Mg Capsule, 5 MG PO QHS, #90 CAPSULE 3 Refills Prov:ZINA MARINO MD 05/08/18 Omeprazole (OMEPRAZOLE) 20 Mg Capsule.dr, 1 CAP PO QDAY, #90 CAP 4 Refills Prov:ZINA MARINO MD 05/04/18 Carvedilol (CARVEDILOL) 25 Mg Tablet, 25 MG PO BID, #180 TAB 4 Refills Prov:ZINA MARINO MD 03/24/18 Potassium Chloride (POTASSIUM CHLORIDE) 20 Meq Tab.er.prt, 1 TAB PO BID, #180 TAB 4 Refills Prov:ZINA MARINO MD 03/24/18 Oxygen (OXYGEN) Inha, 2 L INH QDAY, #2 L Prov:ZINA MARINO MD 09/25/16 Reported Medications Glimepiride (GLIMEPIRIDE) 2 Mg Tablet, 2 MG PO QDAY 06/18/18 Aspirin (ASPIR 81) 81 Mg Tablet.dr, 1 TAB PO QDAY, TAB 07/25/15 Discontinued Scripts Levofloxacin 500 Mg Tab (LEVAQUIN 500 MG TAB) 500 Mg Tablet, 500 MG PO QDAY@10, #5 TAB Prov:ZINA MARINO MD 10/02/18 Past Medical/Surgical History Patient has a past medical history of hyperlipidemia, COPD, frequent falls, diabetes, alcohol use. Patient has surgical history of left inguinal hernia repair, tonsillectomy. Reviewed Nurses Notes: Yes Hx Smoking: Yes Smoking Status: Former Smoker Hx Substance Use Disorder: No Hx Alcohol Use: Yes Constitutional Vital Sign - Last 24 Hours 11/26/18 11/26/18 11/26/18 11/26/18 12:08 12:18 12:20 12:21 Temp 97.7 Pulse 88 94 Resp 18 16 B/P (MAP) 114/60 (78) 110/54 (72) 110/54 Pulse Ox 88 92 O2 Delivery Room Air 11/26/18 11/26/18 11/26/18 11/26/18 12:30 12:38 13:00 13:08 Pulse 82 88 Resp 19 17 B/P (MAP) 99/44 (62) 116/58 (77) Pulse Ox 87 89 11/26/18 11/26/18 11/26/18 11/26/18 13:43 13:45 14:00 14:13 Pulse 85 57 Resp 19 17 B/P (MAP) 92/52 (65) 81/42 (55) Pulse Ox 89 87 11/26/18 11/26/18 14:43 14:52 Pulse 61 Resp 16 B/P (MAP) 99/54 (69) Pulse Ox 89 Physical Exam General Appearance: The patient is alert, has no immediate need for airway protection and no current signs of toxicity. Eyes: Left eye is injected. Proparacaine was applied to the eyes bilaterally. Cali-Pen was used to check pressure. The left eye read 34 and the right eye read 10. Respiratory: Chest is non tender, lungs are clear to auscultation. Cardiac: regular rate and rhythm Gastrointestinal: Abdomen is soft and non tender, no masses, bowel sounds normal. Musculoskeletal: Neck: Neck is supple and non tender. Extremities have full range of motion and are non tender. Patient does have slight tenderness to the left posterior ribs, no tenderness to the bilateral knees. Skin: No rashes or lesions. Patient has a 1.5 cm laceration to the left cheek. Patient has a 2 cm skin tear to the right forearm. Patient has bruises to back, arms, knees. DIFFERENTIAL DIAGNOSIS: After history and physical exam differential diagnosis was considered for laceration, fracture, contusion, NM, syncopal episode. Medical Decision Making Data Points Result Diagram: 11/26/18 1252 11/26/18 1252 Laboratory Hematology Test 11/26/18 12:52 11/26/18 13:40 Red Blood Count 4.40 M/uL (4.00-5.60) Mean Corpuscular Volume 93.9 fL (80.0-96.0) Mean Corpuscular Hemoglobin 31.7 pg (26.0-33.0) Mean Corpuscular Hemoglobin Concent 33.8 g/dL (32.0-36.0) Red Cell Distribution Width 14.7 % (11.5-14.5) Mean Platelet Volume 8.0 fL (7.2-11.1) Neutrophils (%) (Auto) 87.0 % (39.4-72.5) Lymphocytes (%) (Auto) 5.7 % (17.6-49.6) Monocytes (%) (Auto) 6.9 % (4.1-12.4) Eosinophils (%) (Auto) 0.1 % (0.4-6.7) Basophils (%) (Auto) 0.3 % (0.3-1.4) Nucleated RBC Relative Count (auto) 0.0 /100WBC Neutrophils # (Auto) 9.7 K/uL (2.0-7.4) Lymphocytes # (Auto) 0.6 K/uL (1.3-3.6) Monocytes # (Auto) 0.8 K/uL (0.3-1.0) Eosinophils # (Auto) 0.0 K/uL (0.0-0.5) Basophils # (Auto) 0.0 K/uL (0.0-0.1) Nucleated RBC Absolute Count (auto) 0.00 K/uL Prothrombin Time 15.4 seconds (12.0-14.4) Prothromb Time International Ratio 1.21 Activated Partial Thromboplast Time 30 seconds (23-35) Sodium Level 133 mmol/L (137-145) Potassium Level 3.6 mmol/L (3.5-5.0) Chloride Level 98 mmol/L (98-107) Carbon Dioxide Level 24 mmol/L (22-30) Blood Urea Nitrogen 21 mg/dl (9-21) Creatinine 0.90 mg/dl (0.66-1.25) Glomerular Filtration Rate Calc > 60.0 Random Glucose 133 mg/dl (75-110) Calcium Level 8.9 mg/dl (8.4-10.2) Total Bilirubin 1.4 mg/dl (0.2-1.3) Aspartate Amino Transf (AST/SGOT) 49 U/L (0-35) Alanine Aminotransferase (ALT/SGPT) 29 U/L (0-56) Alkaline Phosphatase 65 U/L (0-126) Total Creatine Kinase 336 U/L (55-170) Total Protein 6.2 g/dl (6.3-8.2) Albumin 3.4 g/dl (3.5-5.0) Serum Alcohol < 10 mg/dl Urine Color Yellow Urine Clarity Clear Urine pH 5.0 pH (4.8-9.5) Urine Specific Douglas 1.009 Urine Protein Negative mg/dL (NEGATIVE) Urine Glucose (UA) Negative mg/dL (NEGATIVE) Urine Ketones Negative mg/dL (NEGATIVE) Urine Blood Negative (NEGATIVE) Urine Nitrite Negative (NEGATIVE) Urine Bilirubin Negative (NEGATIVE) Urine Urobilinogen Negative mg/dL (0.2-1.9) Urine Leukocyte Esterase Negative (NEGATIVE) Urine RBC <1 /HPF (0-2/HPF) Urine WBC <1 /HPF (0-5/HPF) Urine Squamous Epithelial Cells Few /LPF (</=FEW) Urine Bacteria Negative /HPF (NONE-FEW) Urine Hyaline Casts Few /LPF (NONE-FEW) Urine Mucus None /HPF (NONE-FEW) Chemistry Test 11/26/18 12:52 11/26/18 13:40 White Blood Count 11.2 k/uL (4.5-11.0) Red Blood Count 4.40 M/uL (4.00-5.60) Hemoglobin 14.0 g/dL (14.0-18.0) Hematocrit 41.3 % (42.0-52.0) Mean Corpuscular Volume 93.9 fL (80.0-96.0) Mean Corpuscular Hemoglobin 31.7 pg (26.0-33.0) Mean Corpuscular Hemoglobin Concent 33.8 g/dL (32.0-36.0) Red Cell Distribution Width 14.7 % (11.5-14.5) Platelet Count 185 K/uL (150-450) Mean Platelet Volume 8.0 fL (7.2-11.1) Neutrophils (%) (Auto) 87.0 % (39.4-72.5) Lymphocytes (%) (Auto) 5.7 % (17.6-49.6) Monocytes (%) (Auto) 6.9 % (4.1-12.4) Eosinophils (%) (Auto) 0.1 % (0.4-6.7) Basophils (%) (Auto) 0.3 % (0.3-1.4) Nucleated RBC Relative Count (auto) 0.0 /100WBC Neutrophils # (Auto) 9.7 K/uL (2.0-7.4) Lymphocytes # (Auto) 0.6 K/uL (1.3-3.6) Monocytes # (Auto) 0.8 K/uL (0.3-1.0) Eosinophils # (Auto) 0.0 K/uL (0.0-0.5) Basophils # (Auto) 0.0 K/uL (0.0-0.1) Nucleated RBC Absolute Count (auto) 0.00 K/uL Prothrombin Time 15.4 seconds (12.0-14.4) Prothromb Time International Ratio 1.21 Activated Partial Thromboplast Time 30 seconds (23-35) Glomerular Filtration Rate Calc > 60.0 Calcium Level 8.9 mg/dl (8.4-10.2) Total Bilirubin 1.4 mg/dl (0.2-1.3) Aspartate Amino Transf (AST/SGOT) 49 U/L (0-35) Alanine Aminotransferase (ALT/SGPT) 29 U/L (0-56) Alkaline Phosphatase 65 U/L (0-126) Total Creatine Kinase 336 U/L (55-170) Total Protein 6.2 g/dl (6.3-8.2) Albumin 3.4 g/dl (3.5-5.0) Serum Alcohol < 10 mg/dl Urine Color Yellow Urine Clarity Clear Urine pH 5.0 pH (4.8-9.5) Urine Specific Douglas 1.009 Urine Protein Negative mg/dL (NEGATIVE) Urine Glucose (UA) Negative mg/dL (NEGATIVE) Urine Ketones Negative mg/dL (NEGATIVE) Urine Blood Negative (NEGATIVE) Urine Nitrite Negative (NEGATIVE) Urine Bilirubin Negative (NEGATIVE) Urine Urobilinogen Negative mg/dL (0.2-1.9) Urine Leukocyte Esterase Negative (NEGATIVE) Urine RBC <1 /HPF (0-2/HPF) Urine WBC <1 /HPF (0-5/HPF) Urine Squamous Epithelial Cells Few /LPF (</=FEW) Urine Bacteria Negative /HPF (NONE-FEW) Urine Hyaline Casts Few /LPF (NONE-FEW) Urine Mucus None /HPF (NONE-FEW) Coagulation Test 11/26/18 12:52 Prothrombin Time 15.4 seconds Prothromb Time International Ratio 1.21 Activated Partial Thromboplast Time 30 seconds Toxicology Test 11/26/18 12:52 Serum Alcohol < 10 mg/dl Urinalysis Test 11/26/18 13:40 Urine Color Yellow Urine Clarity Clear Urine pH 5.0 pH (4.8-9.5) Urine Specific Douglas 1.009 Urine Protein Negative mg/dL (NEGATIVE) Urine Glucose (UA) Negative mg/dL (NEGATIVE) Urine Ketones Negative mg/dL (NEGATIVE) Urine Blood Negative (NEGATIVE) Urine Nitrite Negative (NEGATIVE) Urine Bilirubin Negative (NEGATIVE) Urine Urobilinogen Negative mg/dL (0.2-1.9) Urine Leukocyte Esterase Negative (NEGATIVE) Urine RBC <1 /HPF (0-2/HPF) Urine WBC <1 /HPF (0-5/HPF) Urine Squamous Epithelial Cells Few /LPF (</=FEW) Urine Bacteria Negative /HPF (NONE-FEW) Urine Hyaline Casts Few /LPF (NONE-FEW) Urine Mucus None /HPF (NONE-FEW) EKG/Imaging EKG Interpretation 12 lead EKG: Rhythm: normal sinus rhythm with first degree AV block [place]: normal QRS: normal ST segments: normal Imaging EXAMINATION: CT Head without intravenous contrast CT Cervical spine without intravenous contrast HISTORY: Trauma. TECHNIQUE: Head: Axial images were obtained from the skull base to the vertex without intravenous contrast. Sagittal and coronal reformatted images are also submitted. Cervical spine: Axial images were obtained from the skull base through the upper thoracic spine without IV contrast administration. Coronal and sagittal reformatted images were obtained from the axial source data. One of the following dose optimization techniques was utilized in the performance of this exam: Automated exposure control; adjustment of the mA and/or kV according to the patient's size; or use of an iterative reconstruction technique. Specific details can be referenced in the facility's radiology CT exam operational policy. COMPARISON: Head and cervical spine CT dated 11/25/2018. FINDINGS: HEAD: Brain volume: Mild generalized volume loss. Ventricles: Negative. Acute ischemic changes: None. Hemorrhage: None. Masses / edema: None. Terry-white: Negative. White matter: Negative. Vessels: Calcified plaque in the carotid siphons and vertebral arteries. Normal density in the dural venous sinuses. Extra-axial: Negative. Calvarium / skull base: Mild left frontal scalp contusion. Otherwise negative. Visualized sinuses / orbits: Mild to moderate mucosal thickening in the right maxillary sinus. Rightward nasal septal deviation. CERVICAL SPINE: Alignment: Normal. Cranio-cervical junction: Mild degenerative changes with normal alignment. Vertebral bodies: Age-indeterminate mild superior endplate fractures of T1 and T2 with less than 20% loss of vertebral body height. These are stable compared with 11/25/2018. Posterior elements: Multilevel facet hypertrophy. Otherwise negative. Hardware: None. Disc Spaces: Multilevel degenerative disc disease. Soft tissues: No prevertebral soft tissue swelling. Arterial calcifications. Visualized upper chest: Negative. IMPRESSION: 1. No acute intracranial abnormality. 2. Age-indeterminate mild superior endplate fractures of T1 and T2 with less than 20% loss of vertebral body height. These are stable compared with 11/25/2018. 3. Otherwise no acute cervical spine fracture. 4. Multilevel degenerative disc disease and facet hypertrophy. 5. Mild to moderate mucosal thickening in the right maxillary sinus. Rightward nasal septal deviation. Report Dictated By: Anival Dixon MD at 11/26/2018 2:06 PM Report E-Signed By: Anival Dixon MD at 11/26/2018 2:18 PM CHEST PA LAT HISTORY: Fall. Pain in the chest. COMPARISON: November. FINDINGS: Cardiomediastinal contours: The heart size is normal. There is evidence chronic calcification of the aorta. Lungs and pleura: There is no pneumothorax or pleural effusion on the left side. There are calcified granulomata in the right chest. There are calcified lymph nodes in the karthikeyan. Bones/soft tissues: There is osteopenia. There is no vertebral body compression fracture. There are mildly displaced fractures involving ribs 5, 6 and 7 on the left side. This likely accounts for the patient's pain. In retrospect they may have been present on the prior exam. IMPRESSION: 1. Acute fractures involving ribs 5, 6 and 7 on the left side with minimal displacement. 2. No associated pneumothorax or pleural effusion. 3. Old granulomatous disease in the lungs most prominent on the right side. Report Dictated By: Denver Mendoza MD at 11/26/2018 1:39 PM Report E-Signed By: Denver Mendoza MD at 11/26/2018 1:42 PM Exam type: PELVIS History: fall Comparison: None. Findings: There is no gross evidence of acute fracture on this single view of the pelvis. There are mild to moderate degenerative changes of both hip joints moderate degenerative changes lower lumbar spine. Extensive vascular calcination occasions are seen throughout the visualized pelvis and upper thighs IMPRESSION: 1. No gross evidence of acute pelvic fracture Report Dictated By: Kylee Jesus MD at 11/26/2018 1:58 PM Report E-Signed By: Kylee Jesus MD at 11/26/2018 1:59 PM ED Course/Re-evaluation ED Course Patient was admitted to exam room, history and physical were obtained. Differential diagnoses were considered. On examination lungs are clear, heart is regular, abdomen is soft nontender. Patient does have some slight tenderness to the left posterior ribs. A CBC, CMP, troponin, EKG, chest x-ray, CT scan of the head, cervical spine, pelvis x-rays were done. Patient did have ribs 7,8,9 fractures. Labs were unremarkable. CT scan of the head and spine were negative. Pelvis x-ray was negative. I did do a pressure reading to bilateral eyes, the left eye was reading 34 while the right eye was reading 10. I did call and discuss the case with Dr. Jean, consumer recruiter. His recommendation was to orozco ve patient follow-up in his office this afternoon if he is being discharged. I discussed the findings with the patient. We did discuss admission, as result of rib fractures but also faxed patient been emergency room twice in the last 12 hours. Patient stated that he would prefer not to be admitted, and like to go home. I strongly encouraged him to stay, again patient refuses and like to go home. Patient will be discharged with a prescription of hydrocodone for pain. Patient is follow-up with Dr. Jean in his clinic on his way home. Patient is follow-up with his primary care provider early next week. He is to limit activity by pain. He's returned emergency room if condition worsens. Patient verbalized understanding and agreement with plan. Procedure: Laceration repair. Verbal consent was obtained from the patient. The 1.5 cm laceration on the left cheek was anesthetized in the usual fashion. The wound was scrubbed, draped and explored to its base with a gloved finger. There were no deep structures involved. No tendon injury was identified. The wound was repaired with 3 simple interrupted sutures using 6-0 Prolene material. The wound repair was simple. The procedure was performed by myself. Decision to Disposition Date: Nov 26, 2018 Decision to Disposition Time: 15:14 Depart Departure Latest Vital Signs Vital Signs Date Time Temp Pulse Resp B/P (MAP) Pulse Ox O2 Delivery O2 Flow Rate FiO2 11/26/18 14:52 99/54 (69) 11/26/18 14:43 61 16 89 11/26/18 12:21 97.7 Room Air Impression: Primary Impression: Laceration of cheek Additional Impressions: Multiple rib fractures Increased intraocular pressure Fall from ground level Condition: Improved Disposition: HOME OR SELF-CARE Referrals: ZINA MARINO MD (PCP) New Scripts Hydrocodone Bit/Acetaminophen (HYDROCODON-ACETAMINOPHEN 5-325) 1 Each Tablet 1 EACH PO Q4-6H PRN for PAIN, #12 TAB Prov: PATSY EVANS PLUMBING INSPECTOR 11/26/18 Patient Instructions: Rib Fracture (ED) Additional Instructions: Follow up with Dr. Jean on the way home: [address] [facility] [address] [place] . Ice the ribs 2-3 times a day for 10-15 minutes. Return to the ER if condition worsens. Make sure that you are eating. Get plenty of rest. Limit activity by pain. Follow up with your primary care provider in the early part of next week. 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
[2018-11-26] MEDS ORDERED: TETRACAIN/EPI/LIDO GEL 3ML SYR TP ONE (12:25)
[2018-11-26] MEDS ORDERED: DIPHTH/TETANUS/ACEL. PERTUSSIS IM ONE (12:25)
[2018-11-26] MEDS ORDERED: PROPARACAINE 0.5% OP 15ML BTL OS ONE (12:30)
[2018-11-26 13:13] LABS: PLATELET COUNT, AUTOMATED 185 K/uL (150-450)
[2018-11-26 13:18] LABS: INR 1.21
--- NOTE | 2018-11-26 13:46 | RADIOLOGY IMAGING REPORT ---
FACILITY: [facility] [place] PATIENT NAME: Valerio Hays : 1935 MR: [id number] V: [id number] EXAM DATE: ORDERING PHYSICIAN: PATSY EVANS TECHNOLOGIST: Location: [facility] Patient: Valerio Hays : 1935 Visit/Account:[id number] Date of Sevice: 11/26/2018 CHEST PA LAT HISTORY: Fall. Pain in the chest. COMPARISON: November. FINDINGS: Cardiomediastinal contours: The heart size is normal. There is evidence chronic calcification of the aorta. Lungs and pleura: There is no pneumothorax or pleural effusion on the left side. There are calcified granulomata in the right chest. There are calcified lymph nodes in the karthikeyan. Bones/soft tissues: There is osteopenia. There is no vertebral body compression fracture. There are mildly displaced fractures involving ribs 5, 6 and 7 on the left side. This likely accounts for the patient's pain. In retrospect they may have been present on the prior exam. IMPRESSION: 1. Acute fractures involving ribs 5, 6 and 7 on the left side with minimal displacement. 2. No associated pneumothorax or pleural effusion. 3. Old granulomatous disease in the lungs most prominent on the right side. Report Dictated By: Denver Mendoza MD at 11/26/2018 1:39 PM Report E-Signed By: Denver Mendoza MD at 11/26/2018 1:42 PM WSN:[email or web address]
--- NOTE | 2018-11-26 13:56 | EKG ---
[facility] PATIENT NAME: JW VALDEZ : [id number] MR: [id number] V: [id number] EXAM DATE: ORDERING PHYSICIAN: PATSY EVANS TECHNOLOGIST: KAIN Vu Reason : FALL Blood Pressure : / mmHG Vent. Rate : 084 BPM Atrial Rate : 084 BPM P-R Int : 222 ms QRS Dur : 082 ms QT Int : 380 ms P-R-T Axes : 000 049 040 degrees QTc Int : 449 ms Sinus rhythm with 1st degree AV block with premature supraventricular complexes Artifact in several leads - repeat if needed Possible left atrial enlargement Confirmed by ROGERIO TEJEDA ([id number]) on 11/26/2018 2:51:19 PM Referred By: CRISTINA Confirmed By:ROGERIO TEJEDA
--- NOTE | 2018-11-26 14:04 | RADIOLOGY IMAGING REPORT ---
FACILITY: [facility] PATIENT NAME: Valerio Hays : 1935 MR: [id number] V: [id number] EXAM DATE: ORDERING PHYSICIAN: PATSY EVANS TECHNOLOGIST: Location: [facility] [place] Patient: Valerio Hays : 1935 Visit/Account:[id number] Date of Sevice: 11/26/2018 Exam type: PELVIS History: fall Comparison: None. Findings: There is no gross evidence of acute fracture on this single view of the pelvis. There are mild to mo derate degenerative changes of both hip joints moderate degenerative changes lower lumbar spine. Ext ensive vascular calcination occasions are seen throughout the visualized pelvis and upper thighs IMPRESSION: 1. No gross evidence of acute pelvic fracture Report Dictated By: Kylee Jesus MD at 11/26/2018 1:58 PM Report E-Signed By: Kylee Jesus MD at 11/26/2018 1:59 PM WSN:[email or web address]
--- NOTE | 2018-11-26 14:28 | RADIOLOGY IMAGING REPORT ---
FACILITY: [facility] PATIENT NAME: Valerio Hays : 1935 MR: [id number] V: [id number] EXAM DATE: ORDERING PHYSICIAN: PATSY EVANS TECHNOLOGIST: Location: [facility] [place] Patient: Valerio Hays : 1935 Visit/Account:[id number] Date of Sevice: 11/26/2018 EXAMINATION: CT Head without intravenous contrast CT Cervical spine without intravenous contrast HISTORY: Trauma. TECHNIQUE: Head: Axial images were obtained from the skull base to the vertex without intravenous contrast. Sa gittal and coronal reformatted images are also submitted. Cervical spine: Axial images were obtained from the skull base through the upper thoracic spine with out IV contrast administration. Coronal and sagittal reformatted images were obtained from the axial source data. One of the following dose optimization techniques was utilized in the performance of this exam: Autom ated exposure control; adjustment of the mA and/or kV according to the patient's size; or use of an i terative reconstruction technique. Specific details can be referenced in the facility's radiology C T exam operational policy. COMPARISON: Head and cervical spine CT dated 11/25/2018. FINDINGS: HEAD: Brain volume: Mild generalized volume loss. Ventricles: Negative. Acute ischemic changes: None. Hemorrhage: None. Masses / edema: None. Terry-white: Negative. White matter: Negative. Vessels: Calcified plaque in the carotid siphons and vertebral arteries. Normal density in the dura l venous sinuses. Extra-axial: Negative. Calvarium / skull base: Mild left frontal scalp contusion. Otherwise negative. Visualized sinuses / orbits: Mild to moderate mucosal thickening in the right maxillary sinus. Righ tward nasal septal deviation. CERVICAL SPINE: Alignment: Normal. Cranio-cervical junction: Mild degenerative changes with normal alignment. Vertebral bodies: Age-indeterminate mild superior endplate fractures of T1 and T2 with less than 20% loss of vertebral body height. These are stable compared with 11/25/2018. Posterior elements: Multilevel facet hypertrophy. Otherwise negative. Hardware: None. Disc Spaces: Multilevel degenerative disc disease. Soft tissues: No prevertebral soft tissue swelling. Arterial calcifications. Visualized upper chest: Negative. IMPRESSION: 1. No acute intracranial abnormality. 2. Age-indeterminate mild superior endplate fractures of T1 and T2 with less than 20% loss of verteb ral body height. These are stable compared with 11/25/2018. 3. Otherwise no acute cervical spine fracture. 4. Multilevel degenerative disc disease and facet hypertrophy. 5. Mild to moderate mucosal thickening in the right maxillary sinus. Rightward nasal septal deviati on. Report Dictated By: Anival Dixon MD at 11/26/2018 2:06 PM Report E-Signed By: Anival Dixon MD at 11/26/2018 2:18 PM WSN:[email or web address]
--- NOTE | 2018-11-26 14:28 | RADIOLOGY IMAGING REPORT ---
FACILITY: [facility] - [place] PATIENT NAME: Valerio Hays : 1935 MR: [id number] V: [id number] EXAM DATE: ORDERING PHYSICIAN: PATSY EVANS TECHNOLOGIST: Location: [facility] Patient: Valerio Hays : 1935 Visit/Account:[id number] Date of Sevice: 11/26/2018 EXAMINATION: CT Head without intravenous contrast CT Cervical spine without intravenous contrast HISTORY: Trauma. TECHNIQUE: Head: Axial images were obtained from the skull base to the vertex without intravenous contrast. Sa gittal and coronal reformatted images are also submitted. Cervical spine: Axial images were obtained from the skull base through the upper thoracic spine with out IV contrast administration. Coronal and sagittal reformatted images were obtained from the axial source data. One of the following dose optimization techniques was utilized in the performance of this exam: Autom ated exposure control; adjustment of the mA and/or kV according to the patient's size; or use of an i terative reconstruction technique. Specific details can be referenced in the facility's radiology C T exam operational policy. COMPARISON: Head and cervical spine CT dated 11/25/2018. FINDINGS: HEAD: Brain volume: Mild generalized volume loss. Ventricles: Negative. Acute ischemic changes: None. Hemorrhage: None. Masses / edema: None. Terry-white: Negative. White matter: Negative. Vessels: Calcified plaque in the carotid siphons and vertebral arteries. Normal density in the dura l venous sinuses. Extra-axial: Negative. Calvarium / skull base: Mild left frontal scalp contusion. Otherwise negative. Visualized sinuses / orbits: Mild to moderate mucosal thickening in the right maxillary sinus. Righ tward nasal septal deviation. CERVICAL SPINE: Alignment: Normal. Cranio-cervical junction: Mild degenerative changes with normal alignment. Vertebral bodies: Age-indeterminate mild superior endplate fractures of T1 and T2 with less than 20% loss of vertebral body height. These are stable compared with 11/25/2018. Posterior elements: Multilevel facet hypertrophy. Otherwise negative. Hardware: None. Disc Spaces: Multilevel degenerative disc disease. Soft tissues: No prevertebral soft tissue swelling. Arterial calcifications. Visualized upper chest: Negative. IMPRESSION: 1. No acute intracranial abnormality. 2. Age-indeterminate mild superior endplate fractures of T1 and T2 with less than 20% loss of verteb ral body height. These are stable compared with 11/25/2018. 3. Otherwise no acute cervical spine fracture. 4. Multilevel degenerative disc disease and facet hypertrophy. 5. Mild to moderate mucosal thickening in the right maxillary sinus. Rightward nasal septal deviati on. Report Dictated By: Anival Dixon MD at 11/26/2018 2:06 PM Report E-Signed By: Anival Dixon MD at 11/26/2018 2:18 PM WSN:[email or web address]
[2018-11-26 14:52] VITALS: BP 99/54
[2018-11-26] MEDS ORDERED: HYDR-385 PO (15:11)
== END 2018-11-26 16:04 | disposition home or self-care (01) ==
LOC: ER 12:20
DX: S01.412A Laceration without foreign body of left cheek and temporomandibular area, initial encounter (principal); S22.42XA Multiple fractures of ribs, left side, initial encounter for closed fracture; H40.052 Ocular hypertension, left eye; W18.30XA Fall on same level, unspecified, initial encounter
CPT/HCPCS: 12011; 70450; 71046; 72125; 72170; 81001; 82550; 85025; 85610; 85730; 90471; 90715; 93005; 99284; A9270; G0480; 80320; 82040; 82247; 82310; 82374; 82435; 82565; 82947; 84075; 84132; 84155; 84295; 84450; 84460; 84520

== ENCOUNTER → 2019-03-01 | Outpatient (CLI) | payer MEDICARE, OTHER ==
[2018-09-28 13:00] VITALS: BMI 24.9
[~2019-03-01] MED LIST changes: +BLOO-1511 MC; +BLOO-960 MC; -CHRO200C7 PO; +CHROMIUM PICO200 MC2 PO; +HYDR-385 PO; +LANC-165 TOP; +[UNRECOGNIZED DRUG - CODE] MC
[2019-03-01 15:47] LABS: PLATELET COUNT, AUTOMATED 166 K/uL (150-450)
== END ==
LOC: LAB 15:13
PROVIDERS: ATTEND Internal Medicine
DX: E11.9 Type 2 diabetes mellitus without complications (principal); R29.6 Repeated falls; I10 Essential (primary) hypertension
CPT/HCPCS: 36415; 82040; 82247; 82310; 82374; 82435; 82565; 82607; 82746; 82947; 83036; 84075; 84132; 84155; 84295; 84443; 84450; 84460; 84520; 85025

== ENCOUNTER → 2019-04-13 | Outpatient (REF) | payer MEDICARE, OTHER ==
[2018-09-28 13:00] VITALS: BMI 24.9
== END ==
PROVIDERS: ATTEND Internal Medicine
DX: R60.0 Localized edema (principal); I10 Essential (primary) hypertension
CPT/HCPCS: 82040; 82247; 82310; 82374; 82435; 82565; 82947; 84075; 84132; 84155; 84295; 84450; 84460; 84520

== ENCOUNTER 2019-05-25 11:25 | Emergency (ER) | payer MEDICARE, OTHER ==
[2018-09-28 13:00] VITALS: Wt 68.0 kg
[~2019-05-25 11:25] MED LIST changes: +CLOB30CR3 TP; -OMEP-125 PO; +OMEP-126 PO
[2019-05-25 11:35] VITALS: BP 107/63
--- NOTE | 2019-05-25 11:38 | ER Report ---
History and Physical Time Seen By MD: 11:36 Hx. of Stated Complaint: FELL AT HOME. SKIN TEARS TO BILATERAL ELBOWS. FAMILY STATES HE FALLS OFTEN AT HOME Allergies: Coded Allergies: No Known Drug Allergies (Unverified , 11/26/18) Home Meds Active Scripts Clobetasol Propionate 0.5% 30 Gm Cream (TEMOVATE 0.5% 30 GM CREAM) 30 Gm Cream..g., 1 FAUSTINA TP BID, #2 TUBE 0 Refills Prov:MIKE NEGRETE MD 05/03/19 Furosemide (FUROSEMIDE) 40 Mg Tablet, 40 MG PO BID, #180 TAB 1 Refill Prov:ZINA MARINO MD 03/31/19 Potassium Chloride (POTASSIUM CHLORIDE) 20 Meq Tab.er.prt, 1 TAB PO BID, #180 TAB 1 Refill Prov:ZINA MARINO MD 03/31/19 Enalapril Maleate (ENALAPRIL MALEATE) 10 Mg Tablet, 10 MG PO QDAY, #90 TAB 1 Refill Prov:ZINA MARINO MD 03/02/19 Simvastatin (SIMVASTATIN) 40 Mg Tablet, 1 MG PO QHS, #90 TAB 1 Refill Prov:ZINA MARINO MD 03/02/19 Omeprazole (OMEPRAZOLE) 20 Mg Capsule., 1 CAP PO QDAY, #90 CAP 1 Refill Prov:ZINA MARINO MD 03/02/19 Carvedilol (CARVEDILOL) 12.5 Mg Tablet, 12.5 MG PO BID, #180 TAB 1 Refill Prov:ZINA MARINO MD 03/02/19 Oxygen (OXYGEN) Inha, 2 L INH QDAY, #2 L Prov:ZINA MARINO MD 09/25/16 Reported Medications Aspirin (ASPIR 81) 81 Mg Tablet., 1 TAB PO QDAY, TAB 07/25/15 Hx Smoking: Yes Smoking Status: Former Smoker Hx Substance Use Disorder: No Hx Alcohol Use: Yes Constitutional Vital Sign - Last 24 Hours 05/25/19 11:35 Temp 98.2 Pulse 101 Resp 22 B/P (MAP) 107/63 Pulse Ox 86 O2 Delivery Room Air Depart Departure Latest Vital Signs Vital Signs Date Time Temp Pulse Resp B/P (MAP) Pulse Ox O2 Delivery O2 Flow Rate FiO2 05/25/19 11:35 98.2 101 22 107/63 86 Room Air Condition: Stable Disposition: HOME OR SELF-CARE Referrals: ZINA MARINO MD (PCP) PATSY EVANS May 25, 2019 11:38
--- NOTE | 2019-05-25 11:38 | ER Report ---
History and Physical Time Seen By MD: 11:36 Hx. of Stated Complaint: FELL AT HOME. SKIN TEARS TO BILATERAL ELBOWS. FAMILY STATES HE FALLS OFTEN AT HOME HPI/ROS 83-year-old male who lives by himself at home states he lost his balance today and fell to the ground. When his family came to check on him he was on the floor. No loss of consciousness. No neck pain or focal neuro deficits. He does have frequent falls. Per family he used to have a home health staff come to his thumb, but family thinks that he asked them not to come back. The patient has no complaints other than bleeding from skin tears to his bilateral elbows. He is able to ambulate without pain. He takes 81 mg of aspirin daily. No other blood thinners. No chest pain, abdominal pain. Remainder of the 14 system rev: Yes Allergies: Coded Allergies: No Known Drug Allergies (Unverified , 05/25/19) Home Meds Active Scripts Clobetasol Propionate 0.5% 30 Gm Cream (TEMOVATE 0.5% 30 GM CREAM) 30 Gm Cream..g., 1 FAUSTINA TP BID, #2 TUBE 0 Refills Prov:MIKE NEGRETE MD 05/03/19 Furosemide (FUROSEMIDE) 40 Mg Tablet, 40 MG PO BID, #180 TAB 1 Refill Prov:ZINA MARINO MD 03/31/19 Potassium Chloride (POTASSIUM CHLORIDE) 20 Meq Tab.er.prt, 1 TAB PO BID, #180 TAB 1 Refill Prov:ZINA MARINO MD 03/31/19 Enalapril Maleate (ENALAPRIL MALEATE) 10 Mg Tablet, 10 MG PO QDAY, #90 TAB 1 Refill Prov:ZINA MARINO MD 03/02/19 Simvastatin (SIMVASTATIN) 40 Mg Tablet, 1 MG PO QHS, #90 TAB 1 Refill Prov:ZINA MARINO MD 03/02/19 Omeprazole (OMEPRAZOLE) 20 Mg Capsule.dr, 1 CAP PO QDAY, #90 CAP 1 Refill Prov:ZINA MARINO MD 03/02/19 Carvedilol (CARVEDILOL) 12.5 Mg Tablet, 12.5 MG PO BID, #180 TAB 1 Refill Prov:ZINA MARINO MD 03/02/19 Oxygen (OXYGEN) Inha, 2 L INH QDAY, #2 L Prov:ZINA MARINO MD 09/25/16 Reported Medications Vitamin B Complex (VITAMIN B COMPLEX) 1 Each Capsule, 1 EACH PO QDAY, CAPSULE 05/25/19 Trazodone Hcl (TRAZODONE HCL) 50 Mg Tablet, 50 MG PO QHS 05/25/19 Glyburide (GLYBURIDE) 2.5 Mg Tab, 2.5 MG PO BID, TAB 05/25/19 Aspirin (ASPIR 81) 81 Mg Tablet.dr, 1 TAB PO QDAY, TAB 07/25/15 Reviewed Nurses Notes: Yes Old Medical Records Reviewed: Yes Hx Smoking: Yes Smoking Status: Former Smoker Hx Substance Use Disorder: No Hx Alcohol Use: Yes Constitutional Vital Sign - Last 24 Hours 05/25/19 05/25/19 11:32 11:35 Temp 98.2 Pulse 101 Resp 22 B/P (MAP) 107/63 (78) 107/63 Pulse Ox 86 O2 Delivery Room Air Physical Exam General Appearance: The patient is alert, has no immediate need for airway protection and no current signs of toxicity. Head: Mild ecchymoses to the left cheek, abrasion to left forehead. Eyes: Pupils equal and round no injection. Respiratory: Chest is non tender, lungs are clear to auscultation. Cardiac: regular rate and rhythm Gastrointestinal: Abdomen is soft and non tender, no masses, bowel sounds normal. Musculoskeletal: No TTP of the spine Neck: Neck is supple and non tender. Extremities have full range of motion and are non tender. Skin: Bruising of different stages on b/l UE. Large superficial skin tears to b/l forearms. Medical Decision Making Data Points Laboratory Hematology Test 05/25/19 12:04 Whole Blood Glucose 174 mg/DL (75-110) Chemistry Test 05/25/19 12:04 Whole Blood Glucose 174 mg/DL (75-110) ED Course/Re-evaluation ED Course Uncomplicated fall. Drinks beer throughout day, and I counseled him about cutting down. Acute on chronic alcohol use likely contributing to his balance issues. CT head shows nothing acute. Skin tears bandaged. Patient otherwise feels well, and asking to go home. Spoke with family at length about safety at home. Family states they have appointment with [facility] tomorrow for placement at Assisted Living. Decision to Disposition Date: May 25, 2019 Decision to Disposition Time: 14:51 Depart Departure Latest Vital Signs Vital Signs Date Time Temp Pulse Resp B/P (MAP) Pulse Ox O2 Delivery O2 Flow Rate FiO2 05/25/19 11:35 98.2 101 22 107/63 86 Room Air Impression: Primary Impression: Skin tear of elbow without complication Additional Impressions: Closed head injury Fall from ground level Condition: Improved Disposition: HOME OR SELF-CARE Referrals: ZINA MARINO MD (PCP) Patient Instructions: Acute Wound Care (ED) Problem Qualifiers Primary Impression: Skin tear of elbow without complication Encounter type: initial encounter Laterality: unspecified laterality Qualified Codes: S51.019A - Laceration without foreign body of unspecified elbow, initial encounter Additional Impressions: Closed head injury Encounter type: initial encounter Qualified Codes: S09.90XA - Unspecified injury of head, initial encounter LIZZETTE COSTELLO MD May 25, 2019 11:38
[2019-05-25] MEDS ORDERED: DIPHTH/TETANUS/ACEL. PERTUSSIS IM ONLY ONE (12:15)
--- NOTE | 2019-05-25 13:13 | RADIOLOGY IMAGING REPORT ---
FACILITY: [facility] - [place] PATIENT NAME: Valerio Hays : 1935 MR: [id number] V: [id number] EXAM DATE: ORDERING PHYSICIAN: LIZZETTE COSTELLO TECHNOLOGIST: Location: [facility] [place] Patient: Valerio Hays : 1935 Visit/Account:[id number] Date of Sevice: 05/25/2019 EXAMINATION: CT head without IV contrast HISTORY: Fall on head COMPARISON: 11/26/2018. TECHNIQUE: Contiguous axial images were obtained from the skull base to the vertex without intraven ous contrast. Sagittal and coronal reformatted images are also submitted. One of the following dose optimization techniques was utilized in the performance of this exam: Autom ated exposure control; adjustment of the mA and/or kV according to the patient's size; or use of an i terative reconstruction technique. Specific details can be referenced in the facility's radiology C T exam operational policy. FINDINGS: Brain volume: Stable. Ventricles: Normal. Acute ischemic changes: None. Hemorrhage: None. Masses/edema: None. Terry-white: Negative. White matter: Normal. Vessels: Calcified plaque of the vertebral arteries and carotid siphons at the skull base. Extra-axial: Negative. Calvarium/scalp: Negative. Skull base/visualized face: Negative. Visualized sinuses/orbits: Postsurgical changes of the lenses. Mild periosteal wall thickening invol ving the right maxillary sinus. IMPRESSION: No acute intracranial findings. Report Dictated By: JASNE MORA at 05/25/2019 1:01 PM Report E-Signed By: JASEN MORA at 05/25/2019 1:05 PM WSN:[email or web address]
[2019-05-25] MEDS ORDERED: VITA1CAP46 PO (14:38)
[2019-05-25] MEDS ORDERED: GLY25 PO (14:38)
[2019-05-25] MEDS ORDERED: TRAZ50TA52 PO (14:38)
== END 2019-05-25 14:58 | disposition home or self-care (01) ==
LOC: ER 11:42
DX: S51.011A Laceration without foreign body of right elbow, initial encounter (principal); S51.012A Laceration without foreign body of left elbow, initial encounter; Z79.82 Long term (current) use of aspirin; S09.90XA Unspecified injury of head, initial encounter
CPT/HCPCS: 36416; 70450; 82948; 90471; 90715; 99284

== ENCOUNTER 2019-06-14 11:16 | Inpatient (IN) | payer MEDICARE, OTHER ==
[2018-09-28 13:00] VITALS: Ht 170.2 cm; Wt 69.9 kg
[~2019-06-14] VITALS: Ht 170.2 cm; Wt 69.9 kg
[~2019-06-14 11:16] MED LIST changes: +GLY25 PO; +TRAZ50TA52 PO; +VITA1CAP46 PO
--- NOTE | 2019-06-14 11:18 | ER Report ---
History and Physical Time Seen By MD: 11:15 HPI/ROS CHIEF COMPLAINT: Fall, dizziness, fatigue HISTORY OF PRESENT ILLNESS: Patient is an 83-year-old male here with complaints of fall, dizziness starting approximately 5:00 this morning. Patient denies being on anticoagulation. Denies hitting his head however he does feel lethargic still. Patient is alert and oriented time of evaluation. Patient is on chronic oxygen 2 L/m nasal cannula however he is not compliant with this. Patient is afebrile, hemodynamically stable at time of evaluation. REVIEW OF SYSTEMS: Constitutional: No fever, no chills. Eyes: No discharge. ENT: No sore throat. Cardiovascular: No chest pain, no palpitations. Respiratory: No cough, no shortness of breath. Gastrointestinal: No abdominal pain, no vomiting. Genitourinary: No hematuria. Musculoskeletal: No back pain. Skin: No rashes. Neurological: No headache.+ Dizziness, weakness, generalized fatigue Allergies: Coded Allergies: No Known Drug Allergies (Unverified , 05/25/19) Home Meds Active Scripts Clobetasol Propionate 0.5% 30 Gm Cream (TEMOVATE 0.5% 30 GM CREAM) 30 Gm Cream..g., 1 FAUSTINA TP BID, #2 TUBE 0 Refills Prov:MIKE NEGRETE MD 05/03/19 Furosemide (FUROSEMIDE) 40 Mg Tablet, 40 MG PO BID, #180 TAB 1 Refill Prov:ZINA MARINO MD 03/31/19 Potassium Chloride (POTASSIUM CHLORIDE) 20 Meq Tab.er.prt, 1 TAB PO BID, #180 TAB 1 Refill Prov:ZINA MARINO MD 03/31/19 Enalapril Maleate (ENALAPRIL MALEATE) 10 Mg Tablet, 10 MG PO QDAY, #90 TAB 1 Refill Prov:ZINA MARINO MD 03/02/19 Simvastatin (SIMVASTATIN) 40 Mg Tablet, 1 MG PO QHS, #90 TAB 1 Refill Prov:ZINA MARINO MD 03/02/19 Omeprazole (OMEPRAZOLE) 20 Mg Capsule.dr, 1 CAP PO QDAY, #90 CAP 1 Refill Prov:ZINA MARINO MD 03/02/19 Carvedilol (CARVEDILOL) 12.5 Mg Tablet, 12.5 MG PO BID, #180 TAB 1 Refill Prov:ZINA MARINO MD 03/02/19 Reported Medications Vitamin B Complex (VITAMIN B COMPLEX) 1 Each Capsule, 1 EACH PO QDAY, CAPSULE 05/25/19 Trazodone Hcl (TRAZODONE HCL) 50 Mg Tablet, 50 MG PO QHS 05/25/19 Glyburide (GLYBURIDE) 2.5 Mg Tab, 2.5 MG PO BID, TAB 05/25/19 Aspirin (ASPIR 81) 81 Mg Tablet.dr, 1 TAB PO QDAY, TAB 07/25/15 Discontinued Scripts Oxygen (OXYGEN) Inha, 2 L INH QDAY, #2 L Prov:ZINA MARINO MD 09/25/16 Hx Smoking: Yes Smoking Status: Former Smoker Hx Substance Use Disorder: No Hx Alcohol Use: Yes Constitutional Vital Sign - Last 24 Hours 06/14/19 06/14/19 06/14/19 11:24 11:59 12:16 Temp 98.3 Pulse 92 Resp 20 B/P (MAP) 163/86 Pulse Ox 88 O2 Delivery Room Air O2 Flow Rate 2.0 Physical Exam General Appearance: The patient is alert, has no immediate need for airway protection and no signs of toxicity. No acute distress Eyes: Pupils equal and round no pallor or injection. ENT, Mouth: Mucous membranes are moist. Respiratory: There are no retractions, lungs are clear to auscultation. Cardiovascular: Regular rate and rhythm. Gastrointestinal: Abdomen is soft and non tender, no masses, bowel sounds normal. Neurological: No focal neurological deficits, alert and oriented Skin: Warm and dry, no rashes. Musculoskeletal: Neck is supple non tender. Extremities are nontender, nonswollen and have full range of motion. DIFFERENTIAL DIAGNOSIS: After history and physical exam differential diagnosis was considered for dizziness including but not limited to peripheral and central causes of vertigo, orthostatic causes including dehydration, and blood loss. Medical Decision Making Data Points Result Diagram: 06/14/19 1124 06/14/19 1124 Laboratory Hematology Test 06/14/19 11:24 White Blood Count 7.8 k/uL (4.5-11.0) Red Blood Count 4.02 M/uL (4.00-5.60) Hemoglobin 13.1 g/dL (14.0-18.0) L Hematocrit 36.4 % (42.0-52.0) L Mean Corpuscular Volume 90.5 fL (80.0-96.0) Mean Corpuscular Hemoglobin 32.6 pg (26.0-33.0) Mean Corpuscular Hemoglobin Concent 36.0 g/dL (32.0-36.0) Red Cell Distribution Width 13.8 % (11.5-14.5) Platelet Count 290 K/uL (150-450) Mean Platelet Volume 6.8 fL (7.2-11.1) L Neutrophils (%) (Auto) 83.2 % (39.4-72.5) H Lymphocytes (%) (Auto) 8.3 % (17.6-49.6) L Monocytes (%) (Auto) 7.6 % (4.1-12.4) Eosinophils (%) (Auto) 0.4 % (0.4-6.7) Basophils (%) (Auto) 0.5 % (0.3-1.4) Nucleated RBC Relative Count (auto) 0.0 /100WBC Neutrophils # (Auto) 6.5 K/uL (2.0-7.4) Lymphocytes # (Auto) 0.6 K/uL (1.3-3.6) L Monocytes # (Auto) 0.6 K/uL (0.3-1.0) Eosinophils # (Auto) 0.0 K/uL (0.0-0.5) Basophils # (Auto) 0.0 K/uL (0.0-0.1) Nucleated RBC Absolute Count (auto) 0.00 K/uL Peripheral Blood Smear No Y/N Chemistry Test 06/14/19 11:24 Sodium Level 127 mmol/L (137-145) Potassium Level 4.0 mmol/L (3.5-5.0) Chloride Level 91 mmol/L (98-107) Carbon Dioxide Level 25 mmol/L (22-30) Blood Urea Nitrogen 9 mg/dl (9-21) Creatinine 0.60 mg/dl (0.66-1.25) Glomerular Filtration Rate Calc > 60.0 Random Glucose 98 mg/dl (75-110) Calcium Level 9.1 mg/dl (8.4-10.2) Total Bilirubin 1.1 mg/dl (0.2-1.3) Aspartate Amino Transf (AST/SGOT) 51 U/L (0-35) Alanine Aminotransferase (ALT/SGPT) 37 U/L (0-56) Alkaline Phosphatase 139 U/L (0-126) Ammonia < 9 UMOL/L (9-33) Troponin I < 0.012 ng/ml B-Type Natriuretic Peptide 87 pg/ml (0-100) Total Protein 7.5 g/dl (6.3-8.2) Albumin 3.7 g/dl (3.5-5.0) Urinalysis Test 06/14/19 14:02 EKG/Imaging EKG Interpretation PATIENT NAME: JW VALDEZ : [id number] MR: [id number] V: [id number] EXAM DATE: ORDERING PHYSICIAN: MONIQUE FONTENOT TECHNOLOGIST: HENNY Test Reason : FALL Blood Pressure : / mmHG Vent. Rate : 086 BPM Atrial Rate : 086 BPM P-R Int : 248 ms QRS Dur : 078 ms QT Int : 368 ms P-R-T Axes : 074 044 032 degrees QTc Int : 440 ms Sinus rhythm with 1st degree AV block with premature atrial complexes Otherwise normal ECG When compared with ECG of 26-NOV-2018 12:31, No significant change was found Referred By: PO Confirmed By: Imaging PATIENT NAME: Jw Valdez : 1935 MR: [id number] V: [id number] EXAM DATE: [id number] ORDERING PHYSICIAN: MONIQUE FONTENOT TECHNOLOGIST: Location: [facility] [place] Patient: Jw Valdez : 1935 Visit/Account:[id number] Date of Sevice: 06/14/2019 CHEST SINGLE AP INDICATION: Syncope COMPARISON: None available FINDINGS: Heart size within normal limits. Stable calcified right hilar granulomas and parenchymal granulomas are again noted. There is no focal infiltrate or lobar consolidation. There is no pneumothorax or pleural effusion. IMPRESSION: 1. No acute cardiopulmonary process. FACILITY: [facility] PATIENT NAME: Jw Valdez : 1935 MR: [id number] V: [id number] EXAM DATE: [id number] ORDERING PHYSICIAN: MONIQUE FONTENOT TECHNOLOGIST: Location: [facility] [place] Patient: Jw Valdez : 1935 Visit/Account:[id number] Date of : 06/14/[address] scan without contrast COMPARISONS: May 25, 2019 ADDITIONAL PERTINENT HISTORY: Fall this morning with dizziness TECHNIQUE: Multiple axial images were obtained from the skull base to the vertex without IV contrast. One of the following dose optimization techniques was utilized in the performance of this exam: Automated exposure control; adjustment of the mA and/or kV according to the patient's size; or use of an iterative reconstruction technique. Specific details can be referenced in the facility's radiology CT exam operational policy. FINDINGS: Midline shift: Negative Ventricles: Negative Brain parenchyma: Patchy hypoattenuation within the periventricular and subcortical white matter, nonspecific but likely representing small vessel ischemic change on a chronic basis. No intraparenchymal hemorrhage or mass effect. Extra-axial spaces: Moderate cerebral atrophy. Intracranial vasculature: Cavernous internal carotid and distal vertebral artery calcifications. Otherwise negative Osseous structures: Negative Paranasal sinuses and mastoid air cells: Mild mucosal thickening involving both maxillary sinuses. Surrounding soft tissues and orbits: Negative IMPRESSION: 1. Age related changes as described above. 2. No evidence of acute intracranial pathology. ED Course/Re-evaluation ED Course Patient is an 83-year-old male here with complaints of dizziness, lightheadedness, fatigue the setting of a fall this morning. Patient reports feeling fatigued, weak since time of fall. CT imaging showed no acute intracranial pathology. Patient was found be hyponatremic. Patient was also identified to have decubitus ulcers on his gluteus bilaterally approximately stage II- stage III which was evaluated and dressed with protective cream. Patient was ambulated however was found to be too weak to ambulate by himself. I discussed the patient with Dr. Menchaca still accepted the patient to the hospitalist service as the patient is likely unable to care for self and is unstable on his feet and found to be hyponatremic. Patient was hemodynamically stable at time of admission. Decision to Disposition Date: Jun 14, 2019 Decision to Disposition Time: 14:37 Depart Departure Latest Vital Signs Vital Signs Date Time Temp Pulse Resp B/P (MAP) Pulse Ox O2 Delivery O2 Flow Rate FiO2 06/14/19 12:16 2.0 06/14/19 11:59 98.3 06/14/19 11:24 92 20 163/86 88 Room Air Impression: Primary Impression: Fall from ground level Additional Impressions: Hyponatremia Weakness Condition: Condition Unchanged Disposition: Admitted from ER Referrals: ZINA MARINO MD (PCP) Problem Qualifiers MONIQUE FONTENOT DO Jun 14, 2019 11:18
[2019-06-14 11:43] LABS: PLATELET COUNT, AUTOMATED 290 K/uL (150-450)
--- NOTE | 2019-06-14 11:50 | EKG ---
FACILITY: [facility] - [place] PATIENT NAME: JW VALDEZ : [id number] MR: [id number] V: [id number] EXAM DATE: ORDERING PHYSICIAN: MONIQUE FONTENOT TECHNOLOGIST: HENNY Test Reason : FALL Blood Pressure : / mmHG Vent. Rate : 086 BPM Atrial Rate : 086 BPM P-R Int : 248 ms QRS Dur : 078 ms QT Int : 368 ms P-R-T Axes : 074 044 032 degrees QTc Int : 440 ms Sinus rhythm with 1st degree AV block with premature atrial complexes Otherwise normal ECG When compared with ECG of 26-NOV-2018 12:31, No significant change was found Confirmed by Hugo Gonzalez ([id number]) on 06/15/2019 12:37:11 AM Referred By: PO Confirmed By:Hugo Lacey
--- NOTE | 2019-06-14 12:45 | RADIOLOGY IMAGING REPORT ---
FACILITY: [facility] - [place] PATIENT NAME: Valerio Hays : 1935 MR: [id number] V: [id number] EXAM DATE: ORDERING PHYSICIAN: MONIQUE FONTENOT TECHNOLOGIST: Location: [facility] Patient: Valerio Hays : 1935 Visit/Account:[id number] Date of Sevice: 06/14/2019 CHEST SINGLE AP INDICATION: Syncope COMPARISON: None available FINDINGS: Heart size within normal limits. Stable calcified right hilar granulomas and parenchymal granulomas are again noted. There is no focal infiltrate or lobar consolidation. There is no pneumothorax or pleural effusion. IMPRESSION: 1. No acute cardiopulmonary process. Report Dictated By: Reji Mendoza at 06/14/2019 12:36 PM Report E-Signed By: Reji Mendoza at 06/14/2019 12:37 PM WSN:[id number]
[2019-06-14] MEDS ORDERED: DIPHTH/TETANUS/ACEL. PERTUSSIS IM ONLY ONE (13:00)
--- NOTE | 2019-06-14 13:26 | RADIOLOGY IMAGING REPORT ---
FACILITY: [facility] [place] PATIENT NAME: Valerio Hays : 1935 MR: [id number] V: [id number] EXAM DATE: ORDERING PHYSICIAN: MONIQUE FONTENOT TECHNOLOGIST: Location: [facility] Patient: Valerio Hays : 1935 Visit/Account:[id number] Date of Sevice: 06/14/[address] scan without contrast COMPARISONS: May 25, 2019 ADDITIONAL PERTINENT HISTORY: Fall this morning with dizziness TECHNIQUE: Multiple axial images were obtained from the skull base to the vertex without IV contrast . One of the following dose optimization techniques was utilized in the performance of this exam: Aut omated exposure control; adjustment of the mA and/or kV according to the patient's size; or use of an iterative reconstruction technique. Specific details can be referenced in the facility's radiology CT exam operational policy. FINDINGS: Midline shift: Negative Ventricles: Negative Brain parenchyma: Patchy hypoattenuation within the periventricular and subcortical white matter, no nspecific but likely representing small vessel ischemic change on a chronic basis. No intraparenchym al hemorrhage or mass effect. Extra-axial spaces: Moderate cerebral atrophy. Intracranial vasculature: Cavernous internal carotid and distal vertebral artery calcifications. Ot herwise negative Osseous structures: Negative Paranasal sinuses and mastoid air cells: Mild mucosal thickening involving both maxillary sinuses. Surrounding soft tissues and orbits: Negative IMPRESSION: 1. Age related changes as described above. 2. No evidence of acute intracranial pathology. Report Dictated By: Андрей Ortiz MD at 06/14/2019 1:16 PM Report E-Signed By: Андрей Ortiz MD at 06/14/2019 1:19 PM WSN:[id number]
[2019-06-14 15:29] VITALS: BP 189/83
[2019-06-14] MEDS ORDERED: CYAN25007 PO (16:22)
[2019-06-14] MEDS ORDERED: FLUSH 10 ML SYR IVP PRN (18:35)
[2019-06-14] MEDS ORDERED: APAP/HYDROCODONE 325/5 TAB PO PRN (18:35)
[2019-06-14 19:28] VITALS: BP 108/55
[2019-06-14] MEDS ORDERED: ENALAPRIL MALEATE 10 MG TAB PO SCH (19:30)
--- NOTE | 2019-06-14 19:33 | History & Physical ---
History of Present Illness Chief Complaint fall, weakness History of Present Illness 83M admitted after fall this am and continued weakness. PMHx significant for alcohol abuse, HTN, hyponatremia, COPD. Reportedly fell this am and called EMS when had difficulty standing and walking. Patient has difficulty telling me when this happened saying yesterday at times and is very poor historian. He Was found to have hyponatremia, this is chronic and likely de to EtOH use but given confusion he was admitted. Review of records shows periodic confusion over last few years. Will attempt to reverse any metabolic derangement but concerned for dementia. He does have several skin tears and a significant sacral pressure wound suspect he is having difficulties living by himself. History Problems: (1) Alcohol abuse Status: Chronic (2) COPD (chronic obstructive pulmonary disease) Status: Chronic (3) Benign hypertension Status: Chronic (4) Hyponatremia Status: Chronic Home Meds Active Scripts Clobetasol Propionate 0.5% 30 Gm Cream (TEMOVATE 0.5% 30 GM CREAM) 30 Gm Cream..g., 1 FAUSTINA TP BID, #2 TUBE 0 Refills Prov:MIKE NEGRETE MD 05/03/19 Furosemide (FUROSEMIDE) 40 Mg Tablet, 40 MG PO BID, #180 TAB 1 Refill Prov:ZINA MARINO MD 03/31/19 Potassium Chloride (POTASSIUM CHLORIDE) 20 Meq Tab.er.prt, 1 TAB PO BID, #180 TAB 1 Refill Prov:ZINA MARINO MD 03/31/19 Enalapril Maleate (ENALAPRIL MALEATE) 10 Mg Tablet, 10 MG PO QDAY, #90 TAB 1 Refill Prov:ZINA MARINO MD 03/02/19 Simvastatin (SIMVASTATIN) 40 Mg Tablet, 1 MG PO QHS, #90 TAB 1 Refill Prov:ZINA MARINO MD 03/02/19 Omeprazole (OMEPRAZOLE) 20 Mg Capsule.dr, 1 CAP PO QDAY, #90 CAP 1 Refill Prov:ZINA MARINO MD 03/02/19 Carvedilol (CARVEDILOL) 12.5 Mg Tablet, 12.5 MG PO BID, #180 TAB 1 Refill Prov:ZINA MARINO MD 03/02/19 Reported Medications Cyanocobalamin (Vitamin B-12) (VITAMIN B-12) 2,500 Mcg Tab.subl, 1 TAB PO QDAY 06/14/19 Aspirin (ASPIR 81) 81 Mg Tablet.dr, 1 TAB PO QDAY, TAB 07/25/15 Discontinued Reported Medications Vitamin B Complex (VITAMIN B COMPLEX) 1 Each Capsule, 1 EACH PO QDAY, CAPSULE 05/25/19 Trazodone Hcl (TRAZODONE HCL) 50 Mg Tablet, 50 MG PO QHS 05/25/19 Glyburide (GLYBURIDE) 2.5 Mg Tab, 2.5 MG PO BID, TAB 05/25/19 Discontinued Scripts Oxygen (OXYGEN) Inha, 2 L INH QDAY, #2 L Prov:ZINA MARINO MD 09/25/16 Allergies: Coded Allergies: No Known Drug Allergies (Unverified , 05/25/19) Patient History: FH: emphysema FATHER, , Age:84 FH: heart disease MOTHER, , Age:77 Hx Smoking: Yes Smoking Status: Former Smoker Hx Alcohol Use: Yes Hx Substance Use Disorder: No Review of Systems Neurological: Weakness Exam Vital Signs Vital Signs Date Time Temp Pulse Resp B/P (MAP) Pulse Ox O2 Delivery O2 Flow Rate FiO2 06/14/19 17:48 83 06/14/19 17:19 Nasal Cannula 2.0 06/14/19 15:29 98.2 94 16 189/83 (118) General Appearance: Awake, No Acute Distress Neuro: No Gross deficits Cardiovascular: Normal Rhythm & Peripheral Pulses Respiratory: No Respiratory Distress GI: Abd Soft and Non-Tender Extremities: Soft and Non Tender, Warm, Pulses, Perfused, Edema (severe pitting to knee) Integumentary: Other (large pressure ulcer on sacral area, multiple wounds and skin tears, shronic edema changes to BLLE) Psych: Other (oriented to person and place) Medical Decision Making Data Points Result Diagram: 06/14/19 1124 06/14/19 1124 Assessment and Plan Problems: (1) Altered mental state Status: Acute Assessment & Plan: Concern for chronic changes after review of records oriented on admission to person and place. Will attempt to correct sodium, MOCA ordered, may need placement if no reversible cause found. (2) Hyponatremia Status: Chronic Assessment & Plan: He did present with sodium 127, this is near historical. Will hydrate and recheck. Concern for malnutrition vs EtOH as cause. (3) Benign hypertension Status: Chronic Assessment & Plan: Likely non-adherent to regimen, continue carvedilol, and enalapril. (4) COPD (chronic obstructive pulmonary disease) Status: Chronic Assessment & Plan: Reportedly non-adherent to 2L prescribed. (5) Alcohol abuse Status: Chronic Assessment & Plan: Unclear if continues to drink, will monitor for signs withdrawal Venous Thromboembolism Antithrombotics Is Pt On Any Antithrombotics?: Yes Exam Sepsis Risk: No Definite Risk GU BHAKTI MOORE DO Jun 14, 2019 19:33
[2019-06-14] MEDS: MELATONIN 3 MG TAB PO PRN (21:26)
[2019-06-14] MEDS: CARVEDILOL 6.25 MG TAB PO SCH (21:26)
[2019-06-14] MEDS: SIMVASTATIN 40 MG TAB PO SCH (21:26)
[2019-06-14] MEDS: NS(*) 0.9% 1000 ML BAG 1,000 ML IV PRN (21:27)
[2019-06-15 05:15] VITALS: BP 165/77
[2019-06-15] MEDS: NS(*) 0.9% 1000 ML BAG 1,000 ML IV PRN ×2 (05:17→22:47)
[2019-06-15 06:10] LABS: PLATELET COUNT, AUTOMATED 212 K/uL (150-450)
[2019-06-15 07:27] VITALS: BP 176/87
[2019-06-15] MEDS: ENALAPRIL MALEATE 10 MG TAB PO SCH (08:54)
[2019-06-15] MEDS: PANTOPRAZOLE SOD 40 MG TABEC PO SCH (08:54)
[2019-06-15] MEDS: ASPIRIN 81 MG ENTERIC COATED PO SCH (08:54)
[2019-06-15] MEDS: CARVEDILOL 6.25 MG TAB PO SCH ×2 (08:55→20:47)
[2019-06-15] MEDS: ENOXAPARIN 40 MG/0.4ML SYR SC SCH (08:55)
--- NOTE | 2019-06-15 10:33 | NUR ---
Physical Therapy Impression PT/OT co eval complete. Pt slightly agitated and frustrated during session, requiring encouragement to participate. SBA for supine to sit bed mobility. CGA for transfers and ambulation x20' with RW. Pt with impulsive movements, requiring close CGA and verbal cues. SpO2 dropped to 82% on room air with mobility, returned to WNL on 1L. ModA for sit to supine. Pt with severe gluteal pressure injuries, therefore he was assisted into bed into R) sidelying position. PT spoke with RN and recommended transition to low air loss mattress. PT wound eval scheduled for later today. Recommendation pending progress. Physical Therapy Goals 1: Pt to complete bed mobility supine<>sit with Geoff 2: Pt to complete transfers with SBA and appropriate AD 3: Pt to ambulate 150' with SBA and appropriate AD 4: Pt to asc/desc 6 stairs with SBA Patient's Goals
[2019-06-15 10:36] VITALS: BP 116/61
--- NOTE | 2019-06-15 10:42 | NUR ---
ST IMPRESSION Pt declined participation in formal ST assessment, despite efforts to build rapport and re-attempt. Per chart review, pt obtained a on the MOCA during PCP visit with Dr. Gustafson on 03/02/19 ("likely moderate dementia worsened by ETOH"). Informally, pt exhibited decreased thought organization, increased effort to recall events leading up to hospital admission, and difficulty with comprehension of multi-level instructions. Pt further demonstrated reduced insight into cognitive deficits, and became defensive with attempts to administer assessment items. Pt was generally oriented to temporal, situational, and environmental concepts. He also attended to ST discussion without difficulty. Subjective analysis indicates deficits in short-term memory, executive function skills, problem solving, thought organization/verbal fluency, and information processing. Suspect pt will exhibit improved willingness to participate with management of hyponatremia. Will f/u for completion of standardized assessment on 06/16.
--- NOTE | 2019-06-15 11:59 | Hospitalist Progress Note ---
Subjective Progress Notes Subjective He was admitted with hyponatremia and weakness. He had no acute events overnight. Patient Complains of: Cardiovascular: No: Chest Pain Respiratory: No: Shortness of Breath Physical Exam Vital Signs Date Time Temp Pulse Resp B/P (MAP) Pulse Ox O2 Delivery O2 Flow Rate FiO2 06/15/19 10:36 97.9 84 116/61 (79) 96 Nasal Cannula 1.0 06/15/19 07:27 16 Intake and Output 06/15/19 01:03 Intake Total 0 ml Balance 0 ml Intake Oral 0 ml General Appearance: Alert, Awake, No Acute Distress, Afebrile Neuro: Other (mild weakness present to bilateral lower extremities) Cardiovascular: Regular Rate and Rhythm Respiratory: No Respiratory Distress, Clear to Auscultation Extremities: Warm, Edema (2+pitting edema ), Other (venous stasis changes present to bilateral lower extremities) Integumentary: Other (large excoriated area to buttocks, some blood present) Psych: Appropriate Mood & Affect Result Diagram: 06/15/1953006/15/19530 Assessment and Plan Problems: (1) Altered mental state Status: Acute Assessment & Plan: Concern for chronic changes after review of records oriented on admission to person and place. Will attempt to correct sodium, MOCA ordered, may need placement if no reversible cause found. (2) Hyponatremia Status: Chronic Assessment & Plan: He did present with sodium 127, and decreased to 125. He has improved this morning with IV hydration. Concern for malnutrition vs EtOH as cause. (3) Benign hypertension Status: Chronic Assessment & Plan: Likely non-adherent to regimen, continue carvedilol, and enalapril. (4) COPD (chronic obstructive pulmonary disease) Status: Chronic Assessment & Plan: Reportedly non-adherent to 2L prescribed. (5) Alcohol abuse Status: Chronic Assessment & Plan: Unclear if continues to drink, will monitor for signs withdrawal. (6) Decubitus ulcer Assessment & Plan: He presented with a large decubitus ulcer to bilateral buttocks. Will consult wound care. Exam Sepsis Risk: No Definite Risk SUSANA ROCHA FISCAL ECONOMIST Jun 15, 2019 11:59
--- NOTE | 2019-06-15 12:51 | NUR ---
Occupational Therapy Impression Initial OT/PT evaluation completed. Min A supine to sit. CGA ambulation in room with RW. Pt impulsive with functional mobility. Max A to don brief. Mod A supine to sit. SpO2 80% on room air. Recovered to >90% on 1L. Pt requesting return to supine in bed, declined further needs at this time. Recommendations pending progress. Occupational Therapy Goals 1) Pt will be SBA UB/LB dressing. 2) Pt will be SBA toilet task. 3) Pt will be SBA grooming/hygiene. Patient's Goal
[2019-06-15 15:13] VITALS: BP 135/63
--- NOTE | 2019-06-15 15:35 | Medical Nutrition Therapy ---
Nutrition Anthropometrics Height (Inches): 67.00 Height (Calculated Centimeters: 170.579357 Weight (Pounds): 154 Weight (Calculated Kilograms): 69.853 BMI: 24.1 Hx Weight Loss: Yes (Wt from visit on 05/18/19 was 164.5 lbs) Benjamin Nutrition Score: Probably Inadequate Benjamin Nutrition Risk Score: 13 Dietary Referral Nutrition Risk Factors: Stg 2-4 Press Ulcer, Non-Healing Wound Nutrition Risk Comment: Physical Findings Physical Appearance: WNR (slightly low for older adult) Skin Appearance Skin Appearance: Edema Edema Location Modifier: Both Edema Location: Lower Extremity Type of Edema: Degree of Edema: 2+ Gastrointestinal Symptoms GI Symtoms: Tube Present: Bowel Sounds: Recent Bowel Pattern: Stool Characteristics: Nutritional Diagnosis Nutritional Risk Acuity 2: Abcess/Non-Healing Wound Nutritional Risk Acuity 3: OR & > 80 yrs, GERD Past Medical History: Hx of T2DM, COPD, GERD, hyperlipidemia. Nutritional Acuity: 2-Moderate Nutrition Diagnosis: Increased Nutrient Needs, Involuntary Wt. Loss Nutrition Etiology: Inadeq. Food/Lilian Intake, Physiological Causes Nutrition Problem/Etiology/Sym: wt loss of 6% x 1 month, Sacral Pressure Ulcer, Skin Tears Energy Requirement: 1754 ([id number] ([place] St. Jeor x 1.3-1.6)) Protein Requirement: 84 (84-105g/day (1.2-1.5g/kg) for sacral pressure ulcer/skin tears) Fluid Requirement: 1754 (1mL/kcal) Diet Type: Diet as Tolerated KODY/REG Nutrition Intervention: Between meal supplement Diet Comment To [facility]: DELIVER YULIA ON BREAKFAST AND DINNER TRAY Nutrition Monitoring & Eval Nutrition Goals: Eat 75-100% Meal Nutrition Follow-Up: Fair Intake RD Patient Assessment Time: [address] Assessment Type: RD Assessment Patient Nutrition Acuity: 2-Moderate Follow Up Date: Jun 18, 2019 Nutritional Comment: 06/15/19: Pt admit for fall, hyponatremia. Found to have bilateral pressure ulcers, multiple skin tears. Previous medical hx pertinent for HTN, HLD, DM2, ETOH abuse, COPD. Reviewed wt history pt has lost ~10.5 lbs since outpatient office visit on 05/18/19. Wt loss considered severe at 6% loss of body mass x 1 month. Likely inadequate intake at home r/t ETOH. Has BLE 2+ pitting edema. Recommend adding B-complex r/t ETOH abuse. Will add YULIA BID to promote wound healing. Will attempt to do a malnutrition physical assessment tomorrow.IZAIAH LOPEZ Jun 15, 2019 12:32
[2019-06-15] MEDS ORDERED: ENAL-18 PO (16:23)
[2019-06-15] MEDS ORDERED: CARV12.578 PO (16:23)
--- NOTE | 2019-06-15 17:14 | NUR ---
Physical Therapy Impression Non-excisional debridement with the use of tweezers completed to address rolled edges of wound beds at B) buttocks. Wounds cleansed with sterile saline and marathon skin prep placed on healthy skin surrounding wound. Wound then treated with silver collagen matrix product and covered with tegaderm to prevent soiling related to stool. Wound is not full thickness and demos healthy base following debridement. Plan to leave dressing intact for a full week if possible, unless dressing becomes contaminated, dislodged or overly saturated. PT to reinspect on Friday to ensure good contact. Non-excisional debridement completed with the use of tweezers to a depth of subcutaneous tissue in order to remove callus and adhered yellow slough at L) Medial foot/arch. Wound cleansed with sterile saline and covered with calcium alginate to absorb drainage, followed by silicone border lite 4x4 dressing. Dressing to remain intact for up to one full week with inspection as needed. Nrsg may change sooner if dressing becomes contaminated, dislodged or overly saturated. Physical Therapy Goals 1: Pt to complete bed mobility supine<>sit with Geoff 2: Pt to complete transfers with SBA and appropriate AD 3: Pt to ambulate 150' with SBA and appropriate AD 4: Pt to asc/desc 6 stairs with SBA Patient's Goals
[2019-06-15 19:39] VITALS: BP 129/57
[2019-06-15] MEDS: SIMVASTATIN 40 MG TAB PO SCH (20:47)
[2019-06-15] MEDS: MELATONIN 3 MG TAB PO PRN (20:47)
[2019-06-16 02:55] VITALS: BP 162/83
[2019-06-16 07:41] VITALS: BP 160/74
[2019-06-16 08:00] LABS: PLATELET COUNT, AUTOMATED 186 K/uL (150-450)
[2019-06-16] MEDS: ASPIRIN 81 MG ENTERIC COATED PO SCH (08:34)
[2019-06-16] MEDS: PANTOPRAZOLE SOD 40 MG TABEC PO SCH (08:34)
[2019-06-16] MEDS: ENALAPRIL MALEATE 10 MG TAB PO SCH (08:34)
[2019-06-16] MEDS: ENOXAPARIN 40 MG/0.4ML SYR SC SCH (08:34)
[2019-06-16] MEDS: CARVEDILOL 6.25 MG TAB PO SCH ×2 (08:34→20:53)
--- NOTE | 2019-06-16 09:25 | Hospitalist Progress Note ---
Subjective Progress Notes Subjective He was admitted with hyponatremia and weakness. He reports feeling much improved today. He denies any complaints. Patient Complains of: Cardiovascular: No: Chest Pain Respiratory: No: Shortness of Breath Physical Exam Vital Signs Date Time Temp Pulse Resp B/P (MAP) Pulse Ox O2 Delivery O2 Flow Rate FiO2 06/16/19 07:41 97.9 75 160/74 (102) 97 Nasal Cannula 1.0 06/16/19 02:55 16 Intake and Output 06/16/19 01:03 Intake Total 2515 ml Balance 2515 ml Intake Oral 1010 ml IV Total 1505 ml # Voids 1 General Appearance: Alert, Awake, No Acute Distress, Afebrile Neuro: No Gross deficits Cardiovascular: Regular Rate and Rhythm Respiratory: No Respiratory Distress, Clear to Auscultation GI: Soft and Non-Tender Extremities: Warm, Perfused, Edema (non pitting edema bilateral lower extremities) Psych: Appropriate Mood & Affect Result Diagram: 06/16/19 0749 06/16/19 0749 Assessment and Plan Problems: (1) Altered mental state Status: Acute Assessment & Plan: Concern for chronic changes after review of records oriented on admission to person and place. Will attempt to get MOCA. Previous MOCA by Dr. Gustafson in 02/2019. Discharge planning facilitating placement for patient. (2) Hyponatremia Status: Chronic Assessment & Plan: Improved. He did present with sodium 127, and decreased to 125. He improved this morning with IV hydration. Will now be saline locked. Concern for malnutrition vs EtOH as cause. Will continue to monitor. (3) Benign hypertension Status: Chronic Assessment & Plan: Likely non-adherent to regimen, continue carvedilol, and enalapril. (4) COPD (chronic obstructive pulmonary disease) Status: Chronic Assessment & Plan: Reportedly non-adherent to 2L prescribed. (5) Alcohol abuse Status: Chronic Assessment & Plan: Unclear if continues to drink, will monitor for signs withdrawal. (6) Decubitus ulcer Assessment & Plan: He presented with a large decubitus ulcer to bilateral buttocks. Wound care consulted, dressed wound. Exam Sepsis Risk: No Definite Risk Problem Qualifiers (1) Decubitus ulcer: Pressure injury location: buttock Pressure injury stage: stage 2 Laterality: unspecified laterality Qualified Codes: L89.302 - Pressure ulcer of unspecified buttock, stage 2 SUSANA ROCHA [facility] Jun 16, 2019 09:25
[2019-06-16] MEDS: POTASSIUM CHL 20 MEQ TABCR PO SCH ×2 (09:37→17:28)
--- NOTE | 2019-06-16 09:50 | NUR ---
Physical Therapy Impression Patient is agreeable to therapy. Was CGA for supine to sit but mod A for sit to supine. Patient was CGA for STS transfers. Patient instructed in ambulation ~300 feet with cuing for posture and to stay close to walker. Patient needed CGA for first 50 feet but then was SBA once he gained his balance. Patient was left in bed with all needs met and his call light. Physical Therapy Goals 1: Pt to complete bed mobility supine<>sit with Geoff 2: Pt to complete transfers with SBA and appropriate AD 3: Pt to ambulate 150' with SBA and appropriate AD 4: Pt to asc/desc 6 stairs with SBA Patient's Goals
[2019-06-16 15:52] VITALS: BP 158/74
--- NOTE | 2019-06-16 16:35 | NUR ---
ST IMPRESSION Formal assessment complete. See "other reports" in EMR for detailed information.
--- NOTE | 2019-06-16 16:38 | SPEECH INITIAL EVALUATION ---
INITIAL SPEECH THERAPY EVALUATION REPORT Cognitive Linguistic Assessment Patient Name: Valerio Hays Date of Evaluation: Initiated on 06/15, completed on 06/16/19 Patient : 1935 Clinician: Imani Fagan M.S., CCC-DIRECTOR OF HOUSING AND ENERGY SERVICES Treatment Dx: BACKGROUND The patient is an 83-year-old male admitted to [facility] on 06/14/19 after experiencing a fall in his home environment. EMS was called, and reported the pt had difficulty standing and walking. Upon hospital admission, the pt was noted to be very poor historian with difficulty describing events prompting EMS contact. He was found to have hyponatremia (chronic), with chart review indicating periodic confusion over last few years. The pt was also found to have several skin tears and a significant sacral pressure wound, warranting suspicion of difficulty with independent living. An ST consult was requested to analyze cognitive linguistic status and assist in developing recommendations for safe discharge from hospital environment. Primary Medical Diagnosis: hyponatremia Past Medical Hx: HTN, COPD, ETOH Pain Scale (0-10): 0 LOC / Participation: very pleasant, participatory, somewhat tearful Prior Level of Function: receives meals on wheels, reports HH RN sets up a pillbox each week. Unable to verify report, but states he is otherwise independent with all functions. COGNITIVE LINGUISTIC ASSESSMENT Cognitive linguistic assessment completed at the bedside, illustrating moderate deficits most notably characterized by significant difficulty with executive functions (planning, organizing, error awareness) and problem solving skills. Further impairments were noted in thought organization, short-term recall, and auditory processing/comprehension. Etiology may be consistent with chronic, age-related changes exacerbated by ETOH. Cognitive linguistic assessment procedures focused on informal analysis paired with the [place] Cognitive Assessment (MOCA), version 7.3. Pt achieved a score of 17/30 (>26/30=WNL), consistent with prior results reported by PCP (Dr. Gustafson) on 03/02/19. The pt was initially resistant to participation, which appeared to be in an attempt to mask areas of impairment. He struggled with cognitive organization for completion of prospective thinking/planning tasks, retention of information for immediate and delayed recall, and consistently required multiple repetitions of auditory directions. He often initiated an activity correctly, but either became disorganized or unable to recall task instructions. The pt appeared to recognize errors, prompting request to cease activity without attempt to repair mistakes. He avoided response to informal, hypothetical safety scenarios despite use of nonconfrontational communication techniques. Per chart review, suspect this pt is close to his baseline from a cognitive linguistic standpoint. A brief course of ST interventions will be initiated in an acute care setting, primarily to support comprehension and recall of information re: medical POC. Attempted to transparently discuss recommendation to obtain additional assistance and supervision in home environment, with option to pursue alternative placement (LONG TERM, SNF). Pt adamantly declined, with firm (though pleasant) insistence on full return to prior level of function. Results and recommendations reviewed with [employer] MECHANIC. RECOMMENDATIONS 1. ST 3x/wk 2. Initial provision of 24/[address] at discharge. Medical team and family likely pursuing long-term placement. PROGNOSIS: Fair. Reduced insight into deficits. Highly insistent on full return to PLOF despite safety concerns. PLAN OF CARE Short Term Goals 1. The patient will demonstrate comprehension and retention of information re: medical status and POC with mod DIRECTOR OF HOUSING AND ENERGY SERVICES cues, including access to external visual aides. Thank you for this referral. Please call [phone] to contact with any questions or concerns. Imani Fagan M.S., [facility]-DIRECTOR OF HOUSING AND ENERGY SERVICES [*] [facility]
[2019-06-16 19:16] VITALS: BP 179/78
[2019-06-16] MEDS: MELATONIN 3 MG TAB PO PRN (20:53)
[2019-06-16] MEDS: SIMVASTATIN 40 MG TAB PO SCH (20:53)
[2019-06-17 07:38] VITALS: BP 172/75
[2019-06-17 09:14] VITALS: BP 151/68
[2019-06-17] MEDS: POTASSIUM CHL 20 MEQ TABCR PO SCH (09:21)
[2019-06-17] MEDS: ASPIRIN 81 MG ENTERIC COATED PO SCH (09:21)
[2019-06-17] MEDS: PANTOPRAZOLE SOD 40 MG TABEC PO SCH (09:21)
[2019-06-17] MEDS: CARVEDILOL 6.25 MG TAB PO SCH (09:21)
[2019-06-17] MEDS: ENALAPRIL MALEATE 10 MG TAB PO SCH (09:21)
[2019-06-17] MEDS: ENOXAPARIN 40 MG/0.4ML SYR SC SCH (09:22)
--- NOTE | 2019-06-17 09:51 | NUR ---
OCCUPATIONAL THERAPY Dressing Assistance: Assist threading LB clothing Dressing Aid Required: Not addressed Home Assessment: Not Completed Feeding Assistance: Independent Feeding Specialized Equipment: None Verbalizes Needs: Yes Understands Precautions: Yes Cooperative: Yes Family Teaching: No Occupational Therapy Comment: CGA ambulation with RW.
[2019-06-17] MEDS ORDERED: POTA20TA94 PO (10:30)
--- NOTE | 2019-06-17 10:36 | Hospitalist Depart ---
Discharge Summary Reason for Hosp/Final Diag: (1) Altered mental state Status: Acute Hospital Course & Plan: Concern for chronic changes after review of records oriented on admission to person and place. MOCA unchanged from Previous MOCA by Dr. Gustafson in 02/2019. Patient will be discharged to [facility] in [place]. (2) Hyponatremia Status: Chronic Hospital Course & Plan: Improved. He did present with sodium 127, and decreased to 125. He improved with IV hydration. Concern for malnutrition vs EtOH as cause. He also will be stopped on Diuretic (furosemide). (3) Benign hypertension Status: Chronic Hospital Course & Plan: Likely non-adherent to regimen, continue carvedilol, and enalapril. (4) COPD (chronic obstructive pulmonary disease) Status: Chronic Hospital Course & Plan: Reportedly non-adherent to 2L prescribed. (5) Alcohol abuse Status: Chronic Hospital Course & Plan: Unclear if continues to drink, no signs of withdraw du ring admission. (6) Decubitus ulcer Hospital Course & Plan: He presented with a large decubitus ulcer to bilateral buttocks. Wound care consulted, dressed wound. (7) Malnourished Hospital Course & Plan: Dietary following patient. Departure Latest Vital Signs Vital Signs 06/17/19 06/17/19 06/17/19 07:38 09:14 09:35 Temp 98.6 Pulse 84 Resp 16 B/P (MAP) 151/68 (95) Pulse Ox 92 O2 Delivery Room Air O2 Flow Rate 1.0 Weight (Pounds): 154 Weight (Ounces): 6.0 Result Diagram: 06/16/19 0749 06/17/19 0934 Condition: Improved Discharge: [facility] PT/OT Follow Up For: PT For Strengthening, OT For ADL's, PT Evaluation and Treat, OT Evaluation and Treat Home Health RN Follow Up For: Wound Care Treatments: Dressing Change, Wound Care Discharge Instructions Home Meds Active Scripts Potassium Chloride (POTASSIUM CHLORIDE) 20 Meq Tab.er.prt, 20 MEQ PO BIDBS for 5 Days, #10 TAB Prov:SUSANA ROCHA 06/17/19 Enalapril Maleate (ENALAPRIL MALEATE) 10 Mg Tablet, 10 MG PO QDAY, #90 TAB 1 Refill Prov:ZINA GUSTAFSON MD 06/15/19 Carvedilol (CARVEDILOL) 12.5 Mg Tablet, 12.5 MG PO BID, #180 TAB 1 Refill Prov:ZINA GUSTAFSON MD 06/15/19 Clobetasol Propionate 0.5% 30 Gm Cream (TEMOVATE 0.5% 30 GM CREAM) 30 Gm Cream..g., 1 FAUSTINA TP BID, #2 TUBE 0 Refills Prov:MIKE NEGRETE MD 05/03/19 Simvastatin (SIMVASTATIN) 40 Mg Tablet, 1 MG PO QHS, #90 TAB 1 Refill Prov:ZINA GUSTAFSON MD 03/02/19 Omeprazole (OMEPRAZOLE) 20 Mg Capsule.dr, 1 CAP PO QDAY, #90 CAP 1 Refill Prov:ZINA GUSTAFSON MD 03/02/19 Reported Medications Cyanocobalamin (Vitamin B-12) (VITAMIN B-12) 2,500 Mcg Tab.subl, 1 TAB PO QDAY 06/14/19 Aspirin (ASPIR 81) 81 Mg Tablet.dr, 1 TAB PO QDAY, TAB 07/25/15 Discontinued Reported Medications Vitamin B Complex (VITAMIN B COMPLEX) 1 Each Capsule, 1 EACH PO QDAY, CAPSULE 05/25/19 Trazodone Hcl (TRAZODONE HCL) 50 Mg Tablet, 50 MG PO QHS 05/25/19 Glyburide (GLYBURIDE) 2.5 Mg Tab, 2.5 MG PO BID, TAB 05/25/19 Discontinued Scripts Furosemide (FUROSEMIDE) 40 Mg Tablet, 40 MG PO BID, #180 TAB 1 Refill Prov:ZINA GUSTAFSON MD 03/31/19 Potassium Chloride (POTASSIUM CHLORIDE) 20 Meq Tab.er.prt, 1 TAB PO BID, #180 TAB 1 Refill Prov:ZINA GUSTAFSON MD 03/31/19 Oxygen (OXYGEN) Inha, 2 L INH QDAY, #2 L Prov:ZINA GUSTAFSON MD 09/25/16 Diet: Regular Activity: As Tolerated, With Walker Special Instructions: Stop furosemide. Continue potassium twice daily for five days, then stop. Follow up with primary care provider in 1 week. Copies to: ZINA GUSTAFSON MD ; Venous Thromboembolism Antithrombotics Is Pt On Any Antithrombotics?: Yes Problem Qualifiers (1) Decubitus ulcer: Pressure injury location: buttock Pressure injury stage: stage 2 Laterality: unspecified laterality Qualified Codes: L89.302 - Pressure ulcer of unspecified buttock, stage 2 SUSANA ROCHA Jun 17, 2019 10:36
[2019-06-17 11:52] VITALS: BP 157/86
== END 2019-06-17 17:57 | DRG 641 ==
LOC: ER 11:27 → MED 14:52
PROVIDERS: ADMIT Internal Medicine; ATTEND Internal Medicine
PROC: 0JD93ZZ Extraction of Buttock Subcutaneous Tissue and Fascia, Percutaneous Approach (ICD-10-PCS; principal; 2019-06-15)
PROC: 0HD8XZZ Extraction of Buttock Skin, External Approach (ICD-10-PCS; 2019-06-15)
DX: E87.1 Hypo-osmolality and hyponatremia (principal); E46 Unspecified protein-calorie malnutrition; I10 Essential (primary) hypertension; R53.1 Weakness; F10.10 Alcohol abuse, uncomplicated; J44.9 Chronic obstructive pulmonary disease, unspecified; L89.312 Pressure ulcer of right buttock, stage 2; L89.322 Pressure ulcer of left buttock, stage 2; Z87.891 Personal history of nicotine dependence; Z68.24 Body mass index [BMI] 24.0-24.9, adult; Z23 Encounter for immunization
CPT/HCPCS: 36415; 70450; 71045; 81001; 82040; 82140; 82247; 82310; 82374; 82375; 82435; 82565; 82803; 82947; 83880; 84075; 84132; 84155; 84295; 84450; 84460; 84484; 84520; 85025; 90471; 90715; 92523; 93005; 97161; 97166; 99285; J1650; J7030